=== PATIENT | male | born 1955 | race Caucasian/White ===

== ENCOUNTER 2018-01-13 10:03 | Outpatient (REF) | payer BC, SELFPAY ==
[2018-01-13 21:33] LABS: Glucose 106 mg/dL (70-100)
[2018-01-13 22:22] LABS: Hemoglobin A1C 5.8 % (4.5-6.2)
== END 2018-01-13 10:23 ==
LOC: NCHCN 10:03
PROVIDERS: PCP Family Medicine; Visit Provider Family Medicine
DX: R73.01 Impaired fasting glucose (principal)
CPT/HCPCS: 82947; 83036

== ENCOUNTER 2018-05-19 08:43 | Outpatient (REF) | payer BC, SELFPAY ==
[2018-05-19 20:56] LABS: ALT 42 U/L (12-78); AST 25 U/L (15-37); Alkaline Phosphatase 100 U/L (46-116); BUN 17 mg/dL (7-18); Bilirubin, Total 0.7 mg/dL (0.2-1.0); CREATININE 0.85 mg/dL (0.70-1.30); Calcium 9.3 mg/dL (8.5-10.1); Chloride 103 mmol/L (98-107); Glucose 102 mg/dL (70-100); Potassium 4.1 mmol/L (3.5-5.1); Sodium 143 mmol/L (136-145); Total Protein 7.6 g/dL (6.4-8.2)
[2018-05-19 21:00] LABS: Hemoglobin A1C 5.9 % (4.5-6.2)
== END 2018-05-19 09:03 ==
LOC: NCHCN 08:43
PROVIDERS: PCP Family Medicine; Visit Provider Family Medicine
DX: E88.81 Metabolic syndrome and other insulin resistance (principal); R25.2 Cramp and spasm; E66.3 Overweight
CPT/HCPCS: 80053; 83036

== ENCOUNTER 2019-05-22 09:06 | Outpatient (REF) | payer OTHER, SELFPAY ==
[2019-05-22 22:00] LABS: ALT 47 U/L (16-63); AST 30 U/L (15-37); Alkaline Phosphatase 98 U/L (46-116); Anion Gap 10.6 mmol/L (3-11); BUN 17 mg/dL (7-18); Bilirubin, Total 0.6 mg/dL (0.2-1.0); CO2 26.4 mmol/L (21.0-32.0); CREATININE 0.78 mg/dL (0.70-1.30); Calcium 8.9 mg/dL (8.5-10.1); Calculated LDL 137 mg/dL (<100); Chloride 105 mmol/L (98-107); Cholesterol 218 mg/dL (<200); Glucose 104 mg/dL (74-106); HDL Cholesterol 37 mg/dL (40-60); Sodium 142 mmol/L (136-145); Total Protein 7.3 g/dL (6.4-8.2); Triglyceride 221 mg/dL (<150)
[2019-05-22 22:21] LABS: Hemoglobin A1C 5.9 % (3.8-5.6)
== END 2019-05-22 09:26 ==
LOC: NCHCN 09:06
PROVIDERS: PCP Family Medicine; Visit Provider Family Medicine
DX: R73.03 Prediabetes (principal); I10 Essential (primary) hypertension; E78.5 Hyperlipidemia, unspecified; E88.81 Metabolic syndrome and other insulin resistance
CPT/HCPCS: 80053; 80061; 83036

== ENCOUNTER 2020-10-25 17:40 | Emergency (ER) | payer OTHER, SELFPAY ==
[2020-10-25 17:47] VITALS: BP 168/88; PULSE 61; RESP 19; TEMP 36.6; O2SAT 97
--- NOTE | 2020-10-25 18:00 | DI.RAD_ITS ---
Exam(s) XR TIB/FIB RT EXAM: XR TIB/FIB RT CLINICAL HISTORY: R tibia contusion/pain. TECHNIQUE: 2D digital imaging was performed. COMPARISON: CR CHEST 2 VIEWS PA,LAT from 01/21/2017 FINDINGS: BONES: No acute fracture is present. No bony destructive lesion is seen. Visualized portion of knee a nd ankle joints are unremarkable. SOFT TISSUE: Edema. IMPRESSION: Unremarkable radiographs of the right tibia and fibula. DATA REPOSITORY: RADIATION DOSE DELIVERED:
--- NOTE | 2020-10-25 18:11 | ED.GENADUL_ITS ---
Discharge Plan Disposition Patient Disposition: HOME Condition: Improving Discharge Details Clinical Impression: Contusion of right tibia Primary Care Provider: Li Benton ED Provider: Quinn Taylor Home Meds and New Rx's Prescriptions: Continued acetylcysteine (bulk) Powder 600 RF: 0 zinc 50 mg Capsule 50 mg PO DAILY RF: 0 cholecalciferol (vitamin D3) [Vitamin D3] 125 mcg (5,000 unit) Tablet 5,000 unit PO DAILY RF: 0 multivitamin [Daily Multi-Vitamin] 1 EACH tablet 1 ea PO DAILY RF: 0 atorvastatin [Lipitor] 80 MG tablet 80 mg PO DAILY RF: 0 amlodipine 10 MG tablet 10 mg PO DAILY RF: 0 ibuprofen 200 MG tablet 200 mg PO PRN PRNRF: 0 coenzyme Q10 [CoQ-10] 100 MG capsule 100 mg PO DAILY RF: 0 Discharge Instructions Instructions: Contusion in Adults (ED) Additional Instructions: May continue Tylenol and ibuprofen as needed for pain. Ruddy bandage for compression while awake and out of bed, remove at bedtime. Elevate above the level of the heart to reduce pain and swelling. Ice to reduce discomfort, apply 20 minutes at a time. Return to the emergency department for any acute concerns. The radiologist agreed your x-ray showed no acute bony fracture. Medical Decision Making 64-year-old male presents with right lower third tibia pain after striking it with a grass scythe that did not cut the skin but contused the leg and subsequent to which the patient developed pain and swelling. He presents with concern for bony injury. He was given Tylenol, ice, referred for x-ray. There is no evidence of bony injury. Patient given Ruddy bandage for compression and stability, which he does state provides some subjective improvement. He is improved. He understands he will likely have further bruising. He is stable for outpatient management. HPI General Mode of arrival: ambulatory . Date/Time Provider Initiated Documentation: 10/25/20 17:53 . Limitations to Documentation: no limitations . Information obtained by: patient . History of Present Illness 64 year old M presents to the emergency department with the chief complaint of Right tibia contusion and pain, described as moderate, Quality is described as dull and constant, and is localized to the right and lower extremity. Patient reports no radiation. Patient started experiencing this hour(s) and it has been constant. No relieving factors improve symptom(s), No exacerbating factors reported . Patient notes no other symptoms.. Patient did receive the following treatments prior to arrival, none Related Data Home Medications Medication Instructions Recorded Confirmed amlodipine 10 mg PO DAILY 01/21/17 10/25/20 atorvastatin [Lipitor] 80 mg PO DAILY 01/21/17 10/25/20 coenzyme Q10 [CoQ-10] 100 mg PO DAILY 01/21/17 10/25/20 ibuprofen 200 mg PO PRN PRN 01/21/17 10/25/20 multivitamin [Daily Multi-Vitamin] 1 ea PO DAILY 01/21/17 10/25/20 acetylcysteine (bulk) 600 10/25/20 cholecalciferol (vitamin D3) 5,000 unit PO DAILY 10/25/20 10/25/20 [Vitamin D3] zinc 50 mg PO DAILY 10/25/20 10/25/20 Allergies Allergy/AdvReac Type Severity Reaction Status Date / Time gluten Allergy Intermediate Swelling/Ed Unverified 01/21/17 15:01 yuliet General Stated Complaint: Orthopedic LORETTA: 4 Review of Systems Narrative: 4 systems reviewed and otherwise negative [facility] Social History Smoking/Tobacco Use Status: Former Tobacco Use Smoking risk assessment performed?: Yes Drug use: Never Substance use type: does not use Do you feel safe at home: Yes Do you feel safe in your relationship?: Yes Exam Narrative Exam Narrative: GEN: awake, alert, oriented 3. Pleasant, well groomed, interactive. HEAD: Normocephalic, atraumatic EYES: PERRL, EOMI EXT: Full ROM, right distal third anterior tibia with mild area of swelling and tenderness. No bony clicks or crepitus appreciated. Normal capillary refill Neuro: Grossly normal neurologic exam, conversant, interactive. Psych: Speech fluent, thoughts congruent, affect normal Course Vital Signs Vital signs: Vital Signs Temperature 36.6 C 10/25/20 17:47 Pulse 61 10/25/20 17:47 Respiratory Rate 19 10/25/20 17:47 Blood Pressure 168/88 H 10/25/20 17:47 Pulse Oximetry 97 10/25/20 17:47 Temperature 36.6 C 10/25/20 17:47 Temperature Source Temporal Artery Scan 10/25/20 17:47 Pulse 61 10/25/20 17:47 Respiratory Rate 19 10/25/20 17:47 Respiratory Effort 10/25/20 17:51 Blood Pressure 168/88 H 10/25/20 17:47 Blood Pressure Position Sitting 10/25/20 17:47 Pulse Oximetry 97 10/25/20 17:47 Oxygen Delivery Method Room Air 10/25/20 17:47 Oxygen Flow Rate 0 10/25/20 17:47 Pain Level 2 10/25/20 17:47
[2020-10-25] MEDS: Acetaminophen 500 MG TAB 1000 MG PO (18:20)
--- NOTE | 2020-10-25 18:47 | DI.VRAD_ITS ---
PROCEDURE INFORMATION: Exam: XR Right Tibia and Fibula Exam date and time: 10/25/2020 6:11 PM Age: 64 years old Clinical indication: Lower leg; Right; Patient HX: R tibia contusion/pain TECHNIQUE: Imaging protocol: XR Right tibia and fibula. Views: 2 views. Total images: 2 COMPARISON: No relevant prior studies available. FINDINGS: Bones/joints: No acute fracture or malalignment. Soft tissues: Normal. IMPRESSION: No acute fracture or malalignment. Dictated and Authenticated by: Tj Holcomb MD. Ordering:YUSEF Ball MD
== END 2020-10-25 18:55 | disposition home or self-care (01) ==
LOC: ER 18:54
PROVIDERS: Emergency Provider Emergency Medicine; PCP Family Medicine
DX: S80.11XA Contusion of right lower leg, initial encounter (principal); W27.8XXA Contact with other nonpowered hand tool, initial encounter
CPT/HCPCS: 99283; 73590

== ENCOUNTER 2020-11-01 18:53 | Emergency (ER) | payer OTHER, SELFPAY ==
[2020-11-01 18:56] VITALS: BP 130/73; PULSE 74; RESP 12; TEMP 36.5; O2SAT 98
[2020-11-01] MEDS: Normal Saline 1,000 ML 1000 ML IV (19:00)
[2020-11-01] MEDS: methylPREDNISolone SUCC 125 MG VIAL IVP (19:07)
[2020-11-01 19:30] VITALS: BP 130/70; PULSE 69; RESP 16; O2SAT 96
[2020-11-01 20:00] VITALS: BP 123/63; PULSE 67; RESP 14; O2SAT 93
--- NOTE | 2020-11-01 20:10 | ED.GENADUL_ITS ---
Discharge Plan Disposition Patient Disposition: HOME Discharge Details Clinical Impression: Bee sting-induced anaphylaxis Primary Care Provider: Li Benton ED Provider: Milind Cortez Home Meds and New Rx's Prescriptions: New epinephrine [EpiPen 2-Juan] 0.3 mg/0.3 mL auto-injector 0.3 mg IM ONCE PRN (Reason: anaphylaxis) Qty: 1 RF: 0 prednisone 20 mg tablet 40 mg PO DAILY Qty: 8 RF: 0 Continued acetylcysteine (bulk) Powder 600 RF: 0 zinc 50 mg Capsule 50 mg PO DAILY RF: 0 cholecalciferol (vitamin D3) [Vitamin D3] 125 mcg (5,000 unit) Tablet 5,000 unit PO DAILY RF: 0 multivitamin [Daily Multi-Vitamin] 1 EACH tablet 1 ea PO DAILY RF: 0 atorvastatin [Lipitor] 80 MG tablet 80 mg PO DAILY RF: 0 amlodipine 10 MG tablet 10 mg PO DAILY RF: 0 ibuprofen 200 MG tablet 200 mg PO PRN PRNRF: 0 coenzyme Q10 [CoQ-10] 100 MG capsule 100 mg PO DAILY RF: 0 Discharge Instructions Instructions: Insect Bite or Sting (ED), Anaphylaxis (ED) Additional Instructions: Please take Benadryl 25 mg every 8 hours for the next few days. Take prednisone as prescribed. Your next dose is tomorrow. You are prescribed an EpiPen to be used for severe anaphylaxis in the future. You are highly allergic to bees and wasps and should avoid exposure as much as possible. Return to the emergency department immediately for any worsening or new concerning symptoms. Referrals: Li Benton [Primary Care Provider] - Discharge Data Discharge Date/Time-TO BE ENTERED AT DEPARTURE: 11/01/20 21:35 Medical Decision Making <Karlo Gamboa MD - Last Filed: 11/07/20 23:30> 64-year-old male here with anaphylactic reaction to wasp. Patient received epinephrine and Benadryl in the field. His symptoms are improving. He is hemodynamically stable. Airway intact. I will give Solu-Medrol. Plan to monitor for a couple hours and ensure no recurrence. <Milind Cortez MD - Last Filed: 11/01/20 21:16> Patient signed out to me pending reassessment after 4-hour wait beyond dose of epinephrine. Patient received his epinephrine at home somewhere between 4:30 and 5 PM. He has required no further epinephrine. He has been observed and had no return of allergic/anaphylactic symptoms. He is hemodynamically stable and will be discharged home at this time with prescriptions for EpiPen and prednisone sent to his pharmacy. HPI <Karlo Gamboa MD - Last Filed: 11/07/20 23:30> General Mode of arrival: ambulatory . Date/Time Provider Initiated Documentation: 11/01/20 18:58 . Limitations to Documentation: no limitations . Information obtained by: patient . HPI Narrative: 64-year-old male presents with wasp sting. Patient notes he was stung by multiple wasps just prior to arrival. Patient notes he had swollen lips and hives and called EMS. Symptoms were severe. Progressive. EMS arrived and treated him with epinephrine and Benadryl. Symptoms have since dramatically improved. He notes swelling is almost gone. No difficulty breathing. Related Data Home Medications Medication Instructions Recorded Confirmed amlodipine 10 mg PO DAILY 01/21/17 11/01/20 atorvastatin [Lipitor] 80 mg PO DAILY 01/21/17 10/25/20 coenzyme Q10 [CoQ-10] 100 mg PO DAILY 01/21/17 11/01/20 ibuprofen 200 mg PO PRN PRN 01/21/17 11/01/20 multivitamin [Daily Multi-Vitamin] 1 ea PO DAILY 01/21/17 11/01/20 acetylcysteine (bulk) 600 10/25/20 cholecalciferol (vitamin D3) 5,000 unit PO DAILY 10/25/20 11/01/20 [Vitamin D3] zinc 50 mg PO DAILY 10/25/20 11/01/20 epinephrine [EpiPen 2-Juan] 0.3 mg IM ONCE PRN #1 ea 11/01/20 prednisone 40 mg PO DAILY #8 tab 11/01/20 Previous Rx's Medication Instructions Recorded epinephrine [EpiPen 2-Juan] 0.3 mg IM ONCE PRN #1 ea 11/01/20 prednisone 40 mg PO DAILY #8 tab 11/01/20 Allergies Allergy/AdvReac Type Severity Reaction Status Date / Time gluten Allergy Intermediate Swelling/Ed Unverified 01/21/17 15:01 yuliet wasp Allergy Uncoded 11/01/20 19:02 General Stated Complaint: Allergic LORETTA: 2 Review of Systems <Karlo Gamboa MD - Last Filed: 11/07/20 23:30> All systems reviewed & are unremarkable except as noted in HPI and below Constitutional Constitutional: Denies fever(s) ENT Ears, Nose, Mouth, and Throat: Reports as per HPI PFSH <Karlo Gamboa MD - Last Filed: 11/07/20 23:30> Social History Smoking/Tobacco Use Status: Former Tobacco Use Smoking risk assessment performed?: Yes Drug use: Never Substance use type: does not use Do you feel safe at home: Yes Do you feel safe in your relationship?: Yes Exam <Karlo Gamboa MD - Last Filed: 11/07/20 23:30> Const General: cooperative and no acute distress HENMT Mouth: moist mucous membranes Eyes Conjunctivae: normal conjunctivae Sclera: normal sclerae EOM: EOM intact bilaterally Neck Neck: trachea midline and supple Resp Auscultation: clear to auscultation bilaterally, no rales, no rhonchi and no wheezes Cardio Rate: regular rate and not tachycardic Rhythm: regular rhythm GI Palpation: soft, not firm, no guarding, no masses, not rigid and nontender Skin Rashes: rashes noted (Mild diffuse erythema arms and chest) Neuro General: patient alert, patient awake, patient oriented x3 and tone normal Extrem General: no edema Psych Appearance: grossly normal Mental Status: mental status grossly normal Speech and Movement: speech and movement normal Course <Karlo Gamboa MD - Last Filed: 11/07/20 23:30> Vital Signs Vital signs: Vital Signs Temperature 36.5 C 11/01/20 18:56 Pulse 74 11/01/20 18:56 Respiratory Rate 12 11/01/20 18:56 Blood Pressure 130/73 11/01/20 18:56 Pulse Oximetry 98 11/01/20 18:56 Temperature 36.5 C 11/01/20 18:56 Temperature Source Skin 11/01/20 18:56 Pulse 74 11/01/20 18:56 Respiratory Rate 12 11/01/20 18:56 Respiratory Effort Non-Labored 11/01/20 19:07 Respiratory Pattern Normal 11/01/20 19:07 Blood Pressure 130/73 11/01/20 18:56 Blood Pressure Position Supine 11/01/20 18:56 Pulse Oximetry 98 11/01/20 18:56 Oxygen Delivery Method Room Air 11/01/20 18:56 Oxygen Flow Rate 0 11/01/20 18:56 Pain Level 0 11/01/20 18:56 Sign Out <Karlo aGmboa MD - Last Filed: 11/07/20 23:30> Sign Out Data: Sign Out Comment: Reassessed patient post epinephrine for anaphylaxis. Last updated by Karlo Gamboa MD at 11/01/20 20:55
[2020-11-01 20:30] VITALS: BP 118/63; PULSE 67; RESP 14; O2SAT 93
[2020-11-01 21:31] VITALS: BP 134/67; PULSE 68; RESP 16; O2SAT 96
== END 2020-11-01 21:35 | disposition home or self-care (01) ==
PROVIDERS: Emergency Provider Emergency Medicine; PCP Family Medicine
DX: T63.461A Toxic effect of venom of wasps, accidental (unintentional), initial encounter (principal); T78.2XXA Anaphylactic shock, unspecified, initial encounter
CPT/HCPCS: 96361; 96374; 99284; J2930

== ENCOUNTER 2021-03-13 09:20 | Outpatient (REF) | payer MEDICARE, SELFPAY ==
[2021-03-13 15:58] LABS: ALT 71 U/L (16-63); AST 34 U/L (15-37); Alkaline Phosphatase 97 U/L (46-116); Anion Gap 10.6 mmol/L (3-11); BUN 15 mg/dL (7-18); Bilirubin, Total 0.6 mg/dL (0.2-1.0); CO2 26.4 mmol/L (21.0-32.0); CREATININE 0.8 mg/dL (0.70-1.30); Calcium 9.2 mg/dL (8.5-10.1); Calculated LDL 126 mg/dL (<100); Chloride 106 mmol/L (98-107); Cholesterol 204 mg/dL (<200); Glucose 101 mg/dL (74-106); HDL Cholesterol 42 mg/dL (40-60); Hemoglobin A1C 5.8 % (<5.7); Potassium 4.2 mmol/L (3.5-5.1); Sodium 143 mmol/L (136-145); Total Protein 7.4 g/dL (6.4-8.2); Triglyceride 181 mg/dL (<150)
== END 2021-03-13 09:21 | disposition home or self-care (01) ==
LOC: NCHCN 09:20
PROVIDERS: PCP Family Medicine; Visit Provider Family Medicine
DX: E78.5 Hyperlipidemia, unspecified (principal); I10 Essential (primary) hypertension; R73.03 Prediabetes
CPT/HCPCS: 80053; 80061; 83036

== ENCOUNTER 2022-03-23 11:07 | Outpatient (REF) | payer MEDICARE, SELFPAY ==
--- OUTSIDE RECORDS SUMMARY | 2022-03-23 11:08 | XMS_ITS | Encounter Summary ---
:1955 Author Organization [facility] Address [address] [place] [address] Care Team Providers Name Role Phone Unknown, Provider Unavailable Lamine Benton MD Primary Care Provider [phone] Encounter Details Date Type Department Care Team Description 07/13/2021 Plan of Care Documentation [facility] [address] [place] [address] Social History Tobacco Use Types Packs/Day Years Used Date Smoking Tobacco: Former Cigarettes Quit : 03/16/1980 Smokeless Tobacco: Never Sex Assigned at Date Recorded Male 04/27/2021 18:11 EST documented as of this encounter Functional Status Functional Status Response Date of Assessment Are you deaf or do you have serious difficulty hearing? No 03/16/2021 Because of a physical, mental, or emotional condition, No 08/22/2018 does this person have difficulty doing errands alone such as visiting a doctor's office or shopping? Cognitive Status Response Date of Assessment Because of a physical, mental, or emotional condition, No 08/22/2018 does this person have serious difficulty concentrating, remembering, or making decisions? documented as of this encounter Progress Notes Real Aviles, PT - 07/13/2021 1526 EDT ASSESSMENT Therapy Diagnosis: 65yo male with difficulty walking s/p 03/16/21 tib/fib fracture reduced with IMN. Problem List: Decreased ROM, Decreased strength, Difficulty with prolonged standing, Edema, Impairedambulation, Impaired stair/curb negotiation and Pain Assessment: Patient is a pleasant, 65yo male who presents with deficits in functional mobility s/p 03/16/21 tib/fib fracture reduced with IMN. Patient is doing well but condition is compromised by ongoing RLE edema. Patient to benefit from regular use of compression sock along with elevating RLE as much as possible to help manage RLE edema. Patient is appropriate for PT and will benefit from skilled intervention for progression towards functional goals. Equipment Needed: Compression sock 20-25mmHG Barriers to Learning: None Potential Barriers to Progress: None Response to Evaluation: Well Rehabilitation Potential: Motivation/Commitment to Therapy: Good Rehabilitation Potential: Good Short-Term Goals Timeframe: (4 weeks) Goals: 1) RLE edema managed through use of regular compression 2) Patient able to walk up/down 12 steps with reciprocal gait and no HR 3) Patient able to get 1600' or more on 6min walk test Long-Term Goals Timeframe: (12 weeks) Goals: 1) Patient able to walk up and down 12 steps with reciprocal gait and no HR carrying 10# load for purpose of doing laundry 2) Patient able to achieve greater than 1800' indicating that his walking speed is adequate for community ambulation PLAN Medical Necessity: Therapy intervention is indicated in order to return to a premorbid level of function or significantly improve current level of function. Physical Therapy is recommended for: Treatment Frequency/ Duration: 10 visits over 12 weeks Therapy Treatment to include: 73509 - Hot Cold Pack, 75687 - Therapeutic Exercise, 54068 - Neuromuscular Re-education, 91360 - Gait Training, 81742 - Manual Therapy and 33866 - Therapeutic Activity Recommended Consults: None Development of Plan of Care: Patient and family participated in development of plan of care today. ATTENDING PHYSICIAN: Medicare certification needed. Your signature indicates you approve the therapygoals and plan of care outlined on this document dated 07/13/2021. Thank you! Attending Physician Signature Date REAL AVILES PT 07/13/2021 15:25 documented in this encounter Plan of Treatment Not on filedocumented as of this encounter Visit Diagnoses Not on filedocumented in this encounter Care Teams Tip Bander Relationship Specialty Start Date End Date Lamine Benton MD PCP - General 07/17/18 4 [facility] [address] [place] [address] Unknown, Provider, 04/11/15 documented as of this encounter
--- OUTSIDE RECORDS SUMMARY | 2022-03-23 11:08 | XMS_ITS | Encounter Summary ---
:1955 Author Organization [facility] Address [address] [place] [address] Care Team Providers Name Role Phone Unknown, Provider MD Unavailable Lamine Benton MD Primary Care Provider [phone] Reason for Visit Reason Comments Follow-up Encounter Details Date Type Department Care Team Description 03/17/2022 Office Visit [facility] - Donna Cooper (Primary [facility] D[facility]) Sport Medicine [address], [facility] [address] [place] [address] [place], [place] [address] (Wo rk) Social History Tobacco Use Types Packs/Day Years Used Date Smoking Tobacco: Former Cigarettes Quit : 03/16/1980 Smokeless Tobacco: Never Sex Assigned at Date Recorded Male 04/27/2021 18:11 EST COVID-19 Exposure Response Date Recorded In the last 10 days, have you been in contact with No / Unsu re 03/17/2022 13:05 EST someone who was confirmed or suspected to have Coronavirus/COVID-19? documented as of this encounter Functional Status [...] documented as of this encounter Progress Notes Donna Cooper PA-C - 03/17/2022 1300 EST Quinn presents today for a follow up of his right lower leg. He is S/P intramedullary nail of tib/fib fracture done on 03/17/21. LV was on 10/15/21 with SG where he was recovering well and mobility was improving. He was told he could keep increasing his activity as tolerated. Here today for one year reevaluation and repeat x-rays. XR pended. Orthopaedic Surgery Office Note Quinn Daniel 1955 [id number] Chief Complaint: Chief Complaint Patient presents with ??? Right Lower Leg - Follow-up History of Present Illness: Quinn Daniel is a very pleasant 66 y.o. male who presents today for follow- up of his right tib/fib fracture. He is s/p IMN for this on 03/17/21. Wearing compression socks. Feeling mostly recovered.Still has trouble kneeling. Review of Systems: As above. Active Ambulatory Problems Diagnosis Date Noted ??? Benign prostatic hyperplasia 01/14/2015 ??? Hyperlipidemia 01/14/2015 ??? Hypertension 01/14/2015 ??? Leg cramps 09/30/2017 ??? Metabolic syndrome 09/30/2017 ??? Obesity 09/30/2017 ??? Osteoarthrosis 03/26/2015 ??? Prediabetes 01/14/2015 ??? Seborrhea 01/14/2015 ??? Anaphylactic reaction to bee sting 03/16/2021 ??? Venous insufficiency 01/14/2015 ??? Toxic effect of venom of wasps, accidental (unintentional), initial encounter 11/01/2020 ??? Tibia/fibula fracture 03/16/2021 ??? senior care (current) use of aspirin 04/03/2021 ??? Unspecified fall, subsequent encounter 03/16/2021 ??? Displaced oblique fracture of shaft of right fibula, subsequent encounter for closed fracture with routine healing 04/03/2021 Resolved Ambulatory Problems Diagnosis Date Noted ??? Tibia/fibula fracture, right, closed, initial encounter 03/17/2021 No Additional Past Medical History Social History Occupational History ??? Not on file Tobacco Use ??? Smoking status: Former Types: Cigarettes Quit date: 03/16/1980 Years since quittin.0 ??? Smokeless tobacco: Never Substance and Sexual Activity ??? Alcohol use: Not on file ??? Drug use: Not on file ??? Sexual activity: Not on file Physical Examination: No data found. Gen- no acute distress, awake alert and appropriate Right Lower Extremity- Continues with 1-2+ edema in the leg. Minimal sensitivity over anterior knee incision. Good clinical alignment Light touch sensation intact to SP/DP/T distribution. Foot warm and well perfused. Resolving swelling and ecchymosis. Compartments soft. Fires toe flex/ext with good strength. Range of motion to DF neutral PF 30 Good inversion and eversion strength. Knee range of motion between 0, 100 degrees today comfortably.No tenderness to palpation. Imaging Studies: Xrays of the right tib/fib alignment and hardware position. There is no evidence ofhardware failure or other complication. Good interval consolidation. Assessment and Plan: Quinn Daniel is a very pleasant 66 y.o. male who presents today for follow- up of his right tib/fib fracture. Doing well, follow-up as needed. Donna Cooper PA-C Orthopaedics and [facility] [address] [place], [place] documented in this encounter Plan of Treatment Not on filedocumented as of this encounter Results XR TIBIA FIBULA RIGHT 2 VIEWS (03/17/2022 13:15 EST) Anatomical Region Laterality Modality Lower Extremities Computed Radiography Specimen (Source) Anatomical Collection Method Collection Time Re ceived Time Location / / Volume Laterality 03/17/2022 14:28 EST Narrative 03/17/2022 14:28 EST INDICATION: Right tib/fib fracture. COMPARISON: Right lower leg 10/15/2021. TECHNIQUE: 2 views of the right lower le g were obtained. FINDINGS: Healed fractures of the fibula and tibia are unchanged in position and alignment when compared to the prior examination. Intramedullary garima within the tibia is unchanged. The knee and ankle joints are intact. Procedure Note Leonard Jimenez MD - 2 INDICATION: Right tib/fib fracture. COMPARISON: Right lower leg 10/15/2021. TECHNIQUE: 2 views of the right lower le g were obtained. FINDINGS: Healed fractures of the fibula and tibia are unchanged in position and alignment when compared to the prior examination. Intramedullary garima within the tibia is unchanged. The knee and ankle joints are intact. Donna Cooper PA-C IMG DIAGNOSTIC IMAGING ORD ERABLES documented in this encounter Visit Diagnoses Diagnosis Fracture - Primary Closed fracture of unspecified bone documented in this encounter Care Teams Email Marketing Specialist Relationship Specialty Start Date End Date Lamine Benton MD PCP - General 07/17/[address] [address] Unknown, ProviderMD 04/11/15 documented as of this encounter
--- OUTSIDE RECORDS SUMMARY | 2022-03-23 11:08 | XMS_ITS | Encounter Summary ---
:1955 Author Organization [facility] Address [address] [place] [address] Care Team Providers Name Role Phone Unknown, Provider Unavailable Lamine Benton MD Primary Care Provider Reason for Referral PT/OT/ST (See Order Priority) - Authorization Not Required Specialty Diagnoses / Procedures Referred By Contact Refer red To Contact Rehab Therapies Diagnoses Right leg pain Steffi Hendrix Rehab Therapy MD [place] [address] [place] [address] [address] [place], [place] [address] [place] [address] Phone: [phone] Referral ID Status Reason Start Expiration Visits Visits Date Date Requested Authorized [id number] Authorization Specialty 1 1 Not Required Services 2 Required Question Answer Reason for Request: S/P right tibial intramedull dalton nail 03/17/21 Reason for Visit Reason Onset Date Comments Other 06/02/2021 PATIENT REQUESTING P T REFERRAL TO BE SENT TO [facility] DID NOT OFFER ANY PAYMEN T FOR THE REHAB GYM REFERRAL Encounter Details Date Type Department Care Team Description 06/02/2021 Telephone [facility] - Steffi Hendrix ( PATIENT [facility] Orthopedics & MD [place] REQUESTING PT REFERRAL Sport Medicine [address] TO BE SENT TO [address] [place] [address] [address] [facility], [address] [facility] DID NOT [address] [place] [address], [place] [address] [place] [phone] THE REHAB GYM REFERRAL) [phone] Social History Tobacco Use Types Packs/Day Years [...] making decisions? documented as of this encounter Miscellaneous Notes Telephone Encounter - Adina Matthew LPN - 06/04/2021 0944 EST Order placed as requested Telephone Encounter - Virgen Brown - 06/02/2021 1156 EST Patient insurance will not pay for the Rehab Gym referral that SG sent in. Patient would like us to send a PT referral to [facility]. They seemed to have paid the last time. Thanks documented in this encounter Plan of Treatment Scheduled Referrals Name Type Priority Associated Order Schedule Diagnoses AMB CONS/FOLLOW Outpatient Routine/Next Right leg pain Expected: UP PHYSICAL Referral Available 06/11/2021 THERAPY - [facility] (Approximate) , Expires: 06/04/2022 documented as of this encounter Visit Diagnoses Diagnosis Right leg pain - Primary Pain in limb documented in this encounter Care Teams Clothes Presser Relationship Specialty Start Date End Date Lamine Benton MD PCP - General 07/17/18 4 [facility] [address] [place] [address] Unknown, ProviderMD 04/11/15 documented as of this encounter
--- OUTSIDE RECORDS SUMMARY | 2022-03-23 11:08 | XMS_ITS | Encounter Summary ---
:1955 Author Organization Health system Address [address] [place] [address] Care Team Providers Name Role Phone Unknown, Provider Unavailable Lamine Benton MD Primary Care Provider [phone] Encounter Details Date Type Department Care Team Description 04/28/2021 Travel Social History Tobacco Use Types Packs/Day Years Used Date Smoking Tobacco: Former Cigarettes Quit : 03/16/1980 Smokeless Tobacco: Never Sex Assigned at Date Recorded Male 04/27/2021 18:11 EST COVID-19 Exposure Response Date Recorded In the last month, have you been in contact with No / Unsure 04/28/2021 15:31 EST someone who was confirmed or suspected to have Coronavirus / COVID-19? documented as of this encounter Functional Status [...] making decisions? documented as of this encounter Plan of Treatment Not on filedocumented as of this encounter Visit Diagnoses Not on filedocumented in this encounter Care Teams Six Sigma Black Trainer Relationship Specialty Start Date End Date Lamine Benton MD PCP - General 07/17/18 4 [facility] [address] [place], [place] [address] Unknown, ProviderMD 04/11/15 documented as of this encounter
--- OUTSIDE RECORDS SUMMARY | 2022-03-23 11:08 | XMS_ITS | Encounter Summary ---
:1955 Author Organization [facility] Address [address] [place] [address] Care Team Providers Name Role Phone Unknown, Provider Unavailable Lamine Benton MD Primary Care Provider [phone] Encounter Details Date Type Department Care Team Description 10/15/2021 Travel Social History Tobacco Use Types Packs/Day Years Used Date Smoking Tobacco: Former Cigarettes Quit : 03/16/1980 Smokeless Tobacco: Never Sex Assigned at Date Recorded Male 04/27/2021 18:11 EST COVID-19 Exposure Response Date Recorded In the last 10 days, have you been in contact with No / Unsu re 10/15/2021 15:27 EDT someone who was confirmed or suspected to [...] on filedocumented in this encounter Care Teams Carbon Coating Machine Operator Relationship Specialty Start Date End Date Lamine Benton MD PCP - General 07/17/18 4 [facility] [address] [place], [place] [address] Unknown, ProviderMD 04/11/15 documented as of this encounter
--- OUTSIDE RECORDS SUMMARY | 2022-03-23 11:08 | XMS_ITS | Encounter Summary ---
:1955 Author Organization [facility] Address [address] [place] [address] Care Team Providers Name Role Phone Unknown, Provider Unavailable Lamine Benton MD Primary Care Provider Reason for Visit Reason Comments Pain Follow-up Fracture Encounter Details Date Type Department Care Team Description 06/09/2021 Office Visit [facility] - Steffi Hendrix History of fracture [facility] Orthopedics & MD [place] (Primary Dx) Sport Medicine [address] [place] [address] [address] [place] [address] [place] [phone] Social History Tobacco Use Types Packs/Day Years Used Date Smoking Tobacco: Former Cigarettes Quit : 03/16/1980 Smokeless Tobacco: Never Sex Assigned at Date Recorded Male 04/27/2021 18:11 EST COVID-19 Exposure Response Date Recorded In the last month, have you been in contact with No / Unsure 06/09/2021 15:10 EST someone who was confirmed or suspected to have Coronavirus / COVID-19? documented as of this encounter Last Filed Vital Signs Vital Sign Reading Time Taken Comments Blood Pressure - - Pulse - - Temperature 36.1 ??C (97 ??F) 06/09/2021 1513 EST Respiratory Rate - - Oxygen Saturation - - Inhaled Oxygen Concentration - - Weight - - Height - - Body Mass Index - - documented in this encounter Functional Status Functional Status Response [...] documented as of this encounter Progress Notes Johana Martinez RN - 06/09/2021 1515 EST Quinn presents today for follow up of right tibia fracture s/p IMN. DOS 03/16/21. LV 04/28/21 per note, patient Doing well to date with this injury. We will see back in follow-up in 6weeks. Xrays ordered Graves, Steffi Anton MD - 06/09/2021 1515 EST Orthopaedic Surgery Office Note Quinn Daniel 1955 [id number] Chief Complaint: Chief Complaint Patient presents with ??? Right Lower Leg - Pain, Follow-up, Fracture History of Present Illness: Quinn Daniel is a very pleasant 65 y.o. male who presents today for follow- up of his right tib/fib fracture. He is s/p IMN for this on 03/17/21. He is doing well with improving mobility. Pain controlled. Working with PT. Still some generalized swelling in both legs that is worse than his baseline.We did rule out a DVT previously. Review of Systems: As above. Active Ambulatory [...] initial encounter 11/01/2020 ??? Tibia/fibula fracture 03/16/2021 Resolved Ambulatory Problems Diagnosis Date Noted ??? Tibia/fibula fracture, right, closed, initial encounter 03/17/2021 No Additional Past Medical History Social History Occupational History ??? Not on file Tobacco Use ??? Smoking status: Former Smoker Quit date: 03/16/1980 Years since quittin.2 ??? Smokeless tobacco: Never Used Substance and Sexual Activity ??? Alcohol use: Not on file ??? Drug use: Not on file ??? Sexual activity: Not on file Physical Examination: Patient Vitals for the past 24 hrs: Temp 06/09/21 1513 36.1 ??C (97 ??F) Gen- no acute distress, awake alert and appropriate Right Lower Extremity- Skin- incisions healing well and skin clean dry and intact Good clinical alignment Light touch sensation intact to SP/DP/T distribution. Foot warm and well perfused. Resolving swelling and ecchymosis. Compartments soft. Fires toe flex/ext with good strength. Range of motion to DF neutral PF 30 Good early inversion and eversion strength. Imaging Studies: Xrays of the right tib/fib alignment and hardware position. There is no evidence ofhardware failure or other complication.Perhaps some slight interval consolidation. Assessment and Plan: Quinn Daniel is a very pleasant 65 y.o. male who presents today for follow- up of his right tib/fib fracture. Good progress and interval consolidation. He will continue wearing compression and working on lymphedema management. Steffi Hendrix MD Orthopaedics and Sports Medicine [facility] [address] [place], [place] documented in this encounter Plan of Treatment Not on filedocumented as of this encounter Results XR TIBIA FIBULA RIGHT 2 VIEWS (06/09/2021 15:33 EST) Anatomical Region Laterality Modality Lower Extremities Computed Radiography Specimen (Source) Anatomical Collection Method Collection Time Re ceived Time Location / / Volume Laterality 06/09/2021 15:57 EST Impressions 06/09/2021 15:57 EST Healing tibial and fibular fractures, as detailed above. Tibial hardware intact. Alignment unchanged. Narrative 06/09/2021 15:57 EST XR TIBIA FIBULA RIGHT 2 VIEWS ?? Signs and Symptoms/Comments: ??right tib ia fracture s/p IMN Comparison: 04/28/2021, 03/16/2021. FINDINGS: Right tibia and fibula: AP and lateral v iews were performed. Bones: * ??Healing distal tibial shaft fracture . Hardware intact. Alignment near-anatomic. * ??Healing comminuted proximal fibular shaft fracture. Alignment unchanged. * ??Healing minimally displaced distal f ibular metadiaphyseal fracture. Alignment unchanged. Degenerative changes: Mild-moderate knee and ankle degenerative changes. Soft tissues: Soft tissue swelling. Procedure Note Rohan Cruz MD - 06/09/2021Fo rmatting of this note might be different from the original. XR TIBIA FIBULA RIGHT 2 VIEWS Signs and Symptoms/Comments: right tibia fracture s/p IMN Comparison: 04/28/2021, 03/16/2021. FINDINGS: Right tibia and fibula: AP and lateral v iews were performed. Bones: * Healing distal tibial shaft fracture. Hardware intact. Alignment near-anatomic. * Healing comminuted proximal fibular sh aft fracture. Alignment unchanged. * Healing minimally displaced distal fib ular metadiaphyseal fracture. Alignment unchanged. Degenerative changes: Mild-moderate knee and ankle degenerative changes. Soft tissues: Soft tissue swelling. IMPRESSION Healing tibial and fibular fractures, as detailed above. Tibial hardware intact. Alignment unchanged. Steffi Hendrix MD IMG DIAGNOSTIC IMAGING ORDER GUERA documented in this encounter Visit Diagnoses Diagnosis History of fracture - Primary Personal history of traumatic fracture documented in this encounter Care Teams Student Services Director Relationship Specialty Start Date End Date Lamine Benton MD PCP - General 07/17/[address] [address] Unknown, MD Padmini 04/11/15 documented as of this encounter
--- OUTSIDE RECORDS SUMMARY | 2022-03-23 11:08 | XMS_ITS | Encounter Summary ---
:[address] [facility] Address [address] [place] [address] Care Team Providers Name Role Phone Unknown, Provider MD Unavailable Lamine Benton MD Primary Care Provider [phone] Reason for Visit Reason Onset Date Comments Update 05/05/2021 Encounter Details Date Type Department Care Team Description 05/05/2021 Telephone [facility] Pastora Daniel, RN Update Orthopedics & Sport [address] [facility] Medicine [address], [place] [address] [facility] [place] [address] [phone] Social History Tobacco Use Types Packs/Day Years [...] this encounter Miscellaneous Notes Telephone Encounter - Pastora Daniel RN - 05/06/2021 0938 EST Called Erum and relayed Dr. Hendrix instructions. She will do the best that she can - will try tocoordinate zoom visits, but is not sure how much progress she will make with him. Telephone Encounter - Pastora Daniel RN - 05/05/2021 1205 EST Erum called and left a message requesting a call back regarding Mr. Daniel. He continues to refuse in person visits. Erum would like to know if there are any precautions for Mr. Daniel and if he should be wearing the boot all of the time vs weaning out of it. documented in this encounter Plan of Treatment Not on filedocumented as of this encounter Visit Diagnoses Not on filedocumented in this encounter Care Teams Goldsmith Apprentice Relationship Specialty Start Date End Date Lamine Benton MD PCP - General 07/17/18 4 [facility] [address] [place] [address] Unknown, MD Padmini 04/11/15 documented as of this encounter
--- OUTSIDE RECORDS SUMMARY | 2022-03-23 11:08 | XMS_ITS | Encounter Summary ---
:1955 Author Organization [facility] Address [address] [place] [address] Care Team Providers Name Role Phone Unknown, Provider Unavailable Lamine Benton MD Primary Care Provider [phone] Reason for Visit Auth/Cert Specialty Diagnoses / Procedures Referred By Contact Refer red To Contact Diagnoses Tibia/fibula fracture Tibia/fibula fracture, right, closed, initial encounter Referral ID Status Reason Start Date Expiration Date Visits Requ ested Visits Authorized [id number] 1 1 Encounter Details Date Type Department Care Team Description 03/16/2021 Anesthesia Event [facility] Claudette Fisher, Operating Room [address] [place] [address] [place], [place] [phone] (Wo rk) Anesthesia Record Procedure Summary Procedure Name Responsible Anesthesia Start Anesthesia Stop Anesthesiologist Time Time TREATMENT, FRACTURE, Pauline Fisher MD 03/16/212155 003 TIBIA, SHAFT, BY INTRAMEDULLARY IMPLANT (Right: Lower Leg) Events Date Time Event Comment 03/16/20212155 An Start The patient was re-evaluated immediately before moderate or deep sedation use, before anesthesia induction, or be fore the anesthesia procedure. 2155 An Start Data 2208 an lexi now Spinal placed 2218 Anesthesia Ready 03/17/2021 0023 an stop data 0031 An Stop 0032 Handoff to RN I completed my h andoff to the receiving nurse during which we: 1. Hiwot ntified the patient 2. Identified the responsible provider 3. Reviewed the pertinent medical history 4. Discussed the surgical course 5. Reviewed intra-o p anesthesia management and issues during anesthesi a 6. Set expectations for post-procedure p eriod 7. Allowed opportunity for questions and ac knowledgement of understanding. Name Total fentanyl citrate (PF) injection 50 mcg midazolam (VERSED) injection 1 mg/mL 4 mg propOFol (DIPRIVAN) injection 369,260 mcg ceFAZolin in dextrose 5 % (ANCEF) IVPB DUPLEX 2,000 mg 2,000 mg bupivacaine (PF) 0.5 % injection 3 mL dexmedetomidine injection 12 mcg ePHEDrine vial 50 mg/mL 10 mg lactated ringers (LR) infusion 1,900 mL Agents Name O2 N2O Air Aux O2 flow Blood No blood administrations on file. Lines, Drains, and Airways Type Details Placement Removal Peripheral IV 03/16/21; 1450; 20; Distal, 03/16/21 1450 by Damaso abel, Right; Upper Arm, Antecubital LOUIS Heard Wound 03/16/21; 2355; Anterior, Right; 03/16/21 2355 b y [place], Leg; surgical incision x7 for Sera Lauren NP open reduction and tibial rodding; N documented in this encounter Social History Tobacco Use Types Packs/Day Years Used Date Smoking Tobacco: Former Cigarettes Quit : 03/16/1980 Smokeless Tobacco: Never Sex Assigned at Date Recorded Male 04/27/2021 18:11 EST COVID-19 Exposure Response Date Recorded In the last month, have you been in contact with No / Unsure 03/16/2021 14:45 EST someone who was confirmed or suspected [...] making decisions? documented as of this encounter OR Notes Anesthesia Postprocedure Evaluation - Pauline Fisher MD - 03/17/2021 0031 EST Patient: Quinn Daniel Vital signs were reviewed with the recovery nurse. Complete vitals history is available in the Epic flowsheets. Vitals Value Taken Time BP 130/75 03/17/210 Temp 36.6 ??C (97.9 ??F) 03/17/21 0029 Resp 15 03/17/2130 Pulse From Oximetry 67 BPM 03/17/2130 SpO2 97 % 03/17/2130 Vitals shown include unvalidated device data. Last Pain Score - Numeric Pain Level (Scale 1-10): 8 Type of Anesthesia - neuraxial block Anesthesia Post Evaluation Post-procedure vitals reviewed and are stable. Level of consciousness: alert and oriented Temperature status: normothermia Respiratory status: airway patent and nasal cannula Cardiovascular status: acceptable Hydration status: adequate Nausea/Vomiting: none Pain management: adequate Patient participation: able to participate Disposition: inpatient Anesthesia Complications: Yes, See note Anesthesia Procedure Notes - Pauline Fisher MD - 03/16/2021 2218 ESTAssociated Order(s): Spinal Block Spinal Block Patient location during procedure: OR Start time: 03/16/2021 22:00 End time: 03/16/2021 22:09 Staffing Performed: anesthesiologist Anesthesiologist: Pauline Fisher MD Preanesthetic Checklist Completed: patient identified, IV checked, risks and benefits discussed, surgical consent, monitors and equipment checked, pre-op evaluation and timeout performed Spinal Block Patient position: left lateral decubitus Prep: ChloraPrep, site prepped and draped, skin prep agent completely dried prior to procedure, sterile gloves, mask used and subcutaneous lidocaine Patient monitoring: heart rate, continuous pulse ox and BP cuff Approach: midline Location: L4-5 Injection technique: single-shot Assessment Events: no paresthesia Reason for block: surgical anesthesia Anesthesia Preprocedure Evaluation - Pauline Fisher MD - 03/16/2021 2130 EST Anesthesia Preprocedure Evaluation Patient Medical History, including Anesthesia History reviewed. Chart and Nursing Notes reviewed, including NPO status and Medication History. Additional ROS/History Findings: No current facility-administered medications on file prior to encounter. Current Outpatient Medications on File Prior to Encounter Medication Sig Dispense Refill ??? amLODIPine (NORVASC) 10 mg tablet Take 10 mg by mouth daily. ??? aspirin 81 mg EC tablet Take 81 mg by mouth daily. ??? atorvastatin (LIPITOR) 80 mg tablet Take 80 mg by mouth daily. ??? Coenzyme Q10 (CO Q-10) 100 mg capsule Take 100 mg by mouth daily. ??? multivit-min/folic/vit K/lycop (MEN'S MULTIVITAMIN ORAL) Take 1 Tablet by mouth daily. Current Facility-Administered Medications Medication Route Frequency ??? amLODIPine (NORVASC) tablet 10 mg oral DAILY ??? atorvastatin (LIPITOR) tablet 80 mg oral DAILY ??? morphine injection 4 mg intravenous Now Current Outpatient Medications Medication ??? amLODIPine (NORVASC) 10 mg tablet ??? aspirin 81 mg EC tablet ??? atorvastatin (LIPITOR) 80 mg tablet ??? Coenzyme Q10 (CO Q-10) 100 mg capsule ??? multivit-min/folic/vit K/lycop (MEN'S MULTIVITAMIN ORAL) No Known Allergies Past Medical History: Diagnosis Date ??? Hypertension Relevant Problems CARDIOVASCULAR (+) Hypertension (+) Venous insufficiency History reviewed. No pertinent surgical history. Past Anesthetics [] No history of complications from anesthesia [] No anesthesia records on file []No family history of allergic reactions to anesthesia Review of Systems Constitutional: Negative. Eyes: Negative. Respiratory: Negative. Cardiovascular: Hypertension, heart murmur , high cholesterol. Gastrointestinal: Over weight. Genitourinary: Negative. Musculoskeletal: Negative. Neurological: Negative. Endo/Heme/Allergies: Negative. SOCIAL HISTORY: Social History Tobacco Use Smoking Status Former Smoker ??? Quit date: 03/16/1980 ??? Years since quittin.0 Smokeless Tobacco Never Used Social History Substance and Sexual Activity Drug Use Not on file Social History Substance and Sexual Activity Alcohol Use None No results found for: GLUCOSEPOC Lab Results Component Value Date WBC 12.63 (H) 03/16/2021 HGB 14.7 03/16/2021 HCT 43.7 03/16/2021 MCV 87 03/16/2021 PLT 183 03/16/2021 Lab Results Component Value Date NA 138 03/16/2021 K 4.0 03/16/2021 CL 104 03/16/2021 CO2 28 03/16/2021 Lab Results Component Value Date BUN 16 03/16/2021 Lab Results Component Value Date CREATININE 0.82 03/16/2021 No results found for: INR, PROTIME No results found for: PTT UPT: [] Patient declines test No results found for: PREGUR COVID: [] None on file Lab Results Component Value Date COVIDUV Negative 03/16/2021 Blood Type: ABO Date/Time Value Ref Range Status 03/16/2021 16:15 B Final Rh Factor Date/Time Value Ref Range Status 03/16/2021 16:15 Positive Final Antibody Screen Date/Time Value Ref Range Status 03/16/2021 16:15 Negative Final Specimen Expires: Date/Time Value Ref Range Status 03/16/2021 16:15 03/19/2021 @ 23:59 Final EKG: [] N/A ECHO: [] N/A Cardiac Stress: [] N/A BP (!) 165/85 Resp 16 Ht 177.8 cm (70) Wt 99.8 kg (220 lb) SpO2 95% BMI 31.57 kg/m?? Pulse From Oximetry: [60 BPM-91 BPM] Physical Exam Airway Mallampati: III TM distance: >3 FB Neck ROM: full Cardiovascular Rhythm: regular Rate: normal Dental - normal exam Pulmonary - normal exam Abdominal Anesthesia Plan ASA 3 Anesthesia Type - neuraxial block - via spinal Anesthesia plan and risks discussed. Informed consent obtained from patient. Specific risks discussed were , headache, nerve damage, nausea and vomiting. Code status discussed? Yes The preoperative history and physical which was performed within 30 days of this procedure, has beenreviewed and the clinically appropriate elements of the physical examination have been repeated. There are no changes to the documented history and physical or, if so, such changes are documented in this note documented in this encounter Plan of Treatment Not on filedocumented as of this encounter Procedures Procedure Name Priority Date/Time Associated Comments Diagnosis ANESTHESIA SPINAL Routine 03/16/2021 22:18 Result s for this BLOCK EST procedure are i n the results section. documented in this encounter Results Spinal Block (03/16/2021 22:18 EST) Narrative Pauline Fisher MD - 03/16/2021 22:18 KARLA T Pauline Fisher MD ? 03/16/2021 22:19 Spinal Block Patient location during procedure: OR Start time: 03/16/2021 22:00 End time: 03/16/2021 22:09 Staffing Performed: anesthesiologist Anesthesiologist: Pauline Fisher MD Preanesthetic Checklist Completed: patient identified, IV checke d, risks and benefits discussed, surgical consent, monitors and equipment checked, pre-op evaluation and timeout performed Spinal Block Patient position: left lateral decubitus Prep: ChloraPrep, site prepped and drape d, skin prep agent completely dried prior to procedure, sterile gloves , mask used and subcutaneous lidocaine Patient monitoring: heart rate, continuo us pulse ox and BP cuff Approach: midline Location: L4-5 Injection technique: single-shot Assessment Events: no paresthesia Reason for block: surgical anesthesia Pauline Fisher MD ANESTHESIA ORDERABLES documented in this encounter Visit Diagnoses Not on filedocumented in this encounter Administered Medications Inactive Administered Medications - up to 3 most recent administrations Medication Order MAR Action Action Date Dose Rate Site bupivacaine (PF) (MARCAINE) 0.5% Given 03/16/2021 22:09 EST 3 mL injection other, PRN, Starting on Tue03/16/21 at 2209, Until Tue03/17/21 at 0031, Routine, Anesthesia Intraprocedure ceFAZolin in dextrose 5 % (ANCEF) IVPB DUPLEX Given 22:19 EST 2,000 mg 2,000 mg 2,000 mg, intravenous, Administer over 30 Minutes, PRE-OP ONCE, 1 dose, On Tue03/16/21 at 2200, Type of Therapy: Prophylaxis, Suspected Indication (Select all that apply): Surgical prophylaxis, Routine, Preprocedure dexmedeTOMIDine (PRECEDEX) injection Given 03/16/2021 22:25 EST 4 mcg intravenous, PRN, Starting on Tue03/16/21 at 2225, Until Tue03/17/21 at 0031, Routine, Anesthesia Intraprocedure Given 03/16/2021 22:14 EST 8 mcg ePHEDrine injection Given 03/16/2021 22:54 EST 10 mg intravenous, PRN, Starting on Tue03/16/21 at 2254, Until Tue03/17/21 at 0031, Routine, Anesthesia Intraprocedure fentaNYL citrate (PF) injection Given 03/16/2021 22:23 EST 25 mcg intravenous, PRN, Starting on Tue03/16/21 at 2156, Until Tue03/17/21 at 0031, Routine, Anesthesia Intraprocedure Given 03/16/2021 21:56 EST 25 mcg lactated ringers (LR) infusion New Bag 03/16/2021 23:14 EST 25 mL/hr, intravenous, CONTINUOUS, Starting on Tue03/16/21 at 2200, Until Tue03/17/21 at 0216, Routine, Preprocedure New Bag 03/16/2021 21:56 EST midazolam (PF) (VERSED) injection Given 03/16/2021 22:26 EST 2 mg intravenous, PRN, Starting on Tue03/16/21 at 2156, Until Tue03/17/21 at 0031, Routine, Anesthesia Intraprocedure Given 03/16/2021 21:56 EST 2 mg propOFol (DIPRIVAN) injection Rate Change 03/16/2021 22:42 25 mcg/kg/min 14.97 mL/hr intravenous, FA IP EQF EST CONTINUOUS PRN FOR ONE STEP MEDS, Starting on Tue03/16/21 at 2229, Until Tue03/17/21 at 0031, Routine, Anesthesia Intraprocedure New Bag 03/16/2021 22:29 EST 75 mcg/kg/min 44.91 mL/hr documented in this encounter Orders Medications Ordered That Might Not Have Count Last Ord ered Date First Ordered Date Been Administered bupivacaine (PF) (MARCAINE) 0.5% injection 1 03/16 documented in this encounter Care Teams Barber Relationship Specialty Start Date End Date Lamine Benton MD PCP - General 07/17/18 4 [facility] [address] [place] [address] Unknown, Provider, 04/11/15 documented as of this encounter
--- OUTSIDE RECORDS SUMMARY | 2022-03-23 11:08 | XMS_ITS | Encounter Summary ---
:1955 Author Organization [facility] Address [address] [place] [address] Care Team Providers Name Role Phone Unknown, Provider Unavailable Lamine Benton MD Primary Care Provider [phone] Encounter Details Date Type Department Care Team Description 06/09/2021 Travel Social History Tobacco Use Types Packs/Day [...] on filedocumented in this encounter Care Teams Supervisor [employer] Relationship Specialty Start Date End Date Lamine Benton MD PCP - General 07/17/18 4 [facility] [address] [place], [place] [id number] Unknown, ProviderMD 04/11/15 documented as of this encounter
--- OUTSIDE RECORDS SUMMARY | 2022-03-23 11:08 | XMS_ITS | Encounter Summary ---
:1955 Author Organization [facility] Address [address] [place] [address] Care Team Providers Name Role Phone Unknown, Provider Unavailable Lamine Benton MD Primary Care Provider [phone] Encounter Details Date Type Department Care Team Description 03/17/2022 Travel Social History Tobacco Use Types Packs/Day [...] on filedocumented in this encounter Care Teams Development Vice President Relationship Specialty Start Date End Date Lamine Benton MD PCP - General 07/17/18 4 [facility] [address] [place], [place] [address] Unknown, ProviderMD 04/11/15 documented as of this encounter
--- OUTSIDE RECORDS SUMMARY | 2022-03-23 11:08 | XMS_ITS | Encounter Summary ---
:1955 Author Organization [facility] Address [address] [place] [address] Care Team Providers Name Role Phone Unknown, Provider Unavailable Lamine Benton MD Primary Care Provider [phone] Reason for Visit Reason Comments COVID-19 Encounter Details Date Type Department Care Team Description 12/26/2021 [place] [facility] [place] Luisana Mayorga MD COVID-19 (Primary Dx); Clinic [address] Heart murmur, aortic [address] [place] [address] [address] [place] [address] Social History Tobacco Use Types Packs/Day Years Used Date Smoking Tobacco: Former Cigarettes Quit : 03/16/1980 Smokeless Tobacco: Never Sex Assigned at Date Recorded Male 04/27/2021 18:11 EST documented as of this encounter Last Filed Vital Signs Vital Sign Reading Time Taken Comments Blood Pressure 160/70 12/26/2021 1603 EDT Pulse 86 12/26/2021 1603 EDT Temperature 38.7 ??C (101.7 ??F) 12/26/2021 1603 EDT Respiratory Rate 16 12/26/2021 1603 EDT Oxygen Saturation 96% 12/26/2021 1603 EDT Inhaled Oxygen Concentration - - Weight - [...] making decisions? documented as of this encounter Patient Instructions Patient InstructionsHelen Mayorga MD - 12/26/2021 16:00 EDT 1. [id number] infection -Drink plenty of fluids, elevate your head with rest. - nirmatrelvir-ritonavir (PAXLOVID, EUA,) 300 mg (150 mg x 2)-100 mg tablet; Take 3 Tablets by mouth2 times daily for 5 days. Dispense: 1 Each; Refill: 0 1.Do NOT take Atorvastatin for the 5 days that you are taking the Paxlovid. -Take Acetaminophen 1000 mg oral up to 3 times daily for fever and body aches. AND/OR Ibuprofen 400 mg oral up to 4 times daily with food for same. There is a RISK of blood clots with COVID. SO, for chest pains, acute short breath, severe lightheadget yourself to the ER. documented in this encounter Ordered Prescriptions Prescription Sig Dispensed Refills Start Date End Date nirmatrelvir-ritonavir Take 3 Tablets by 1 Each 0 202112/31/2021 (PAXLOVID, EUA,) 300 mg mouth 2 times daily (150 mg x 2)-100 mg for 5 days. tabletIndications: COVID-19 documented in this encounter Progress Notes Yany Peguero MA - 12/26/2021 1600 EDT CC/HPI: Pt +COVID 12/26, interested in anti-viral Covid Screening: In the last 72 hours, has the patient had: New or unusual cough, shortness of breath, new nasal congestion, sore throat, fever, chills, body aches, or new loss of taste or smell without a reasonable alternative diagnosis*? (If yes, assign to [facility]) In the past 10 days, has the patient had a positive Covid test OR a confirmed close Covid exposure (<6ft for > 15mins in 24hr period)? (if yes, assign to [facility], regardless of vaccination status) +COVID 9/3 *may be determined by RN or in discussion with available provider (EQUIPMENT TESTER's and CCA's can defer to Charge Nurse to complete triage when appropriate) PCP: Lamine Benton Helen Mayorga MD - 12/26/2021 1600 EDT [facility] [place] [facility] Chief Complaint(s): COVID-19 HPI: came down with COVID 2 days ago. She had temp to 103. This morning, Saurav came down with fever to 101.2, deep cough today. Positive home COVID test this morning. Positive runny nose. NO headache. Feels lightheaded. NO sore throat to date. He has a history of HTN, hyperlipidemia, prediabetes. Has had 2 J&J vaccines. 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 I have reviewed current problem list and current medications. Social History Occupational History ??? Not on file Tobacco Use ??? Smoking status: Former Smoker Quit date: 03/16/1980 Years since quittin.8 ??? Smokeless tobacco: Never Used Substance and Sexual Activity ??? Alcohol use: Not on file ??? Drug use: Not on file ??? Sexual activity: Not on file ROS:no nausea, vomiting. Objective: Examination: Vitals: BP (!) 160/70 (BP Cuff Location: Right arm, BP Patient Position: Sitting, BP Cuff Sizes: Adult, large) Pulse 86 Temp (!) 38.7 ??C (101.7 ??F) (Oral) Resp 16 SpO2 96% There is no height or weight on file to calculate BMI. WDWN WM in mild discomfort TMs clear. Nares without discharge. Throat with crowded oropharynx, moderate erythema and edema Neck supple without nodes, thyromegaly CV RR S1S2 without murmur rub gallop Lungs clear to auscultation Extremities- walks with limp favoring right lower leg Skin hot and moist. Assessment & Plan: 1. [id number] infection -Drink plenty of fluids, elevate your head with rest. - nirmatrelvir-ritonavir (PAXLOVID, EUA,) 300 mg (150 mg x 2)-100 mg tablet; Take 3 Tablets by mouth2 times daily for 5 days. Dispense: 1 Each; Refill: 0 1.Do NOT take Atorvastatin for the 5 days that you are taking the Paxlovid. -Take Acetaminophen 1000 mg oral up to 3 times daily for fever and body aches. AND/OR Ibuprofen 400 mg oral up to 4 times daily with food for same. There is a RISK of blood clots with COVID. SO, for chest pains, acute short breath, severe lightheadget yourself to the ER. 2. Aortic heart murmur- I do not see any evidence of Cardiac US in chart, but I suspect it may be inchart with PCP. Recommend follow up ECHO if there is no evidence of this at PCP's office. documented in this encounter Plan of Treatment Not on filedocumented as of this encounter Visit Diagnoses Diagnosis COVID-19 - Primary Heart murmur, aortic Aortic valve disorders documented in this encounter Care Teams Poultry And Fish Butcher Relationship Specialty Start Date End Date Lamine Benton MD PCP - General 07/17/18 4 [facility] [address] [place] [address] Unknown, ProviderMD 04/11/15 documented as of this encounter
--- OUTSIDE RECORDS SUMMARY | 2022-03-23 11:08 | XMS_ITS | Encounter Summary ---
:1955 Author Organization [facility] Address [address] [place] [address] Care Team Providers Name Role Phone Unknown, Provider Unavailable Lamine Benton MD Primary Care Provider [phone] Reason for Visit Reason Comments Follow-up Fracture Encounter Details Date Type Department Care Team Description 10/15/2021 Office Visit [facility] - Steffi Hendrix Closed fracture of [facility] Orthopedics & MD [place] right tibia and fibula Sport Medicine [address] with routine healing, [address] subsequent encounter [address] [place], (Primary Dx) [place] [address] [place] [id number] Social History Tobacco Use Types Packs/Day Years [...] have Coronavirus/COVID-19? documented as of this encounter Last Filed Vital Signs Vital Sign Reading Time Taken Comments Blood Pressure - - Pulse - - Temperature 36.7 ??C (98.1 ??F) 10/15/2021 1527 EDT Respiratory Rate - - Oxygen Saturation - [...] documented as of this encounter Progress Notes Jitendra Kowalski MA - 10/15/2021 1515 EDT Attempting kneel down it feels like something is missing Steffi Hendrix MD - 10/15/2021 1515 EDT Orthopaedic Surgery Office Note Quinn Daniel 1955 [id number] Chief Complaint: Chief Complaint Patient presents with ??? Right Leg - Follow-up, Fracture History of Present Illness: Quinn Daniel is a very pleasant 65 y.o. male who presents today for follow- up of his right tib/fib fracture. He is s/p IMN for this on 03/17/21. He is doing well with improving mobility. Has been back to most of his regular activities including mowing, but when trying to kneel it feels like something is missing. Generally compression socks have been helping swelling. Review of Systems: As above. Active Ambulatory [...] Former Smoker Quit date: 03/16/1980 Years since quittin.6 ??? Smokeless tobacco: Never Used Substance and Sexual Activity ??? Alcohol use: Not on file ??? Drug use: Not on file ??? Sexual activity: Not on file Physical Examination: Patient Vitals for the past 24 hrs: Temp 10/15/21 1527 36.7 ??C (98.1 ??F) Gen- no acute distress, awake alert [...] follow- up of his right tib/fib fracture. Ok to keep progressing his activity. I think the sensation while kneeling is the normal apprehension or skin nerve sensitivity common with this pre-patellar incision. OK to try to ease himself back into kneeling on it. We will see back at the one year anniversary with repeat xrays. Steffi Hendrix MD Orthopaedics and Sports Medicine [facility] [address] [place], [place] documented in this encounter Plan of Treatment Not on filedocumented as of this encounter Procedures Procedure Name Priority Date/Time Associated Diagnosis Comme nts XR TIBIA FIBULA Routine 10/15/2021 15:37 Closed fracture of Re sults for this RIGHT 2 VIEWS EDT right tibia and procedure a re in fibula with routine the resu lts healing, subsequent section. encounter documented in this encounter Results XR TIBIA FIBULA RIGHT 2 VIEWS (10/15/2021 15:37 EDT) Anatomical Region Laterality Modality Lower Extremities Computed Radiography Specimen (Source) Anatomical Collection Method Collection Time Re ceived Time Location / / Volume Laterality 10/15/2021 15:39 EDT Narrative 10/15/2021 15:39 EDT INDICATION: s/p tib-fib fracture. COMPARISON: Right lower leg 08/06/2021. TECHNIQUE: 2 views of the right lower le g were obtained. FINDINGS: There is mild interval but incomplete he aling of the internally fixed fracture of the distal tibia diaphysis. No instrumentation failure is seen. The healed fracture deformity of the fibula diaphysis is unchanged in position and alignment whe n compared to the prior exam. Procedure Note Leonard Jimenez MD - 2 INDICATION: s/p tib-fib fracture. COMPARISON: Right lower leg 08/06/2021. TECHNIQUE: 2 views of the right lower le g were obtained. FINDINGS: There is mild interval but incomplete he aling of the internally fixed fracture of the distal tibia diaphysis. No instrumentation failure is seen. The healed fracture deformity of the fibula diaphysis is unchanged in position and alignment when compared to the prior exam. Steffi Hendrix MD IMG DIAGNOSTIC IMAGING ORDER GUERA documented in this encounter Visit Diagnoses Diagnosis Closed fracture of right tibia and fibul a with routine healing, subsequent encounter - Primary documented in this encounter Care Teams Biologist Aide Relationship Specialty Start Date End Date Lamine Benton MD PCP - General 07/17/[address] [address] Unknown, Provider, 04/11/15 documented as of this encounter
--- OUTSIDE RECORDS SUMMARY | 2022-03-23 11:08 | XMS_ITS | Encounter Summary ---
:1955 Author Organization [facility] Address [address] [place] [address] Care Team Providers Name Role Phone Unknown, Provider Unavailable Lamine Benton MD Primary Care Provider [phone] Reason for Visit Reason Comments Ankle Injury slipped on plywood while [place] and heard a snap in the ankle and states the foot went floppy Auth/Cert Specialty Diagnoses / Procedures Referred By Contact Refer red To Contact Diagnoses Tibia/fibula fracture Tibia/fibula fracture, right, closed, initial encounter Referral ID Status Reason Start Date Expiration Date Visits Requ ested Visits Authorized [id number] 1 1 Encounter Details Date Type Department Care Team Description 03/16/2021 - Emergency [facility] - Snehal Moore DO [address] [place] [address] Tibia/fibula fracture (Primary Dx); 03/17/2021 [facility] [place] Medical / Aristeo Avila MD [address] [place] [address] Closed fracture of right tibia and fibul a, initial encounter Surgical Department Brad Hendrix MD [address] [place] [address] [address] [place] [address] Social History Tobacco Use Types Packs/Day Years [...] Sign Reading Time Taken Comments Blood Pressure 133/71 03/17/2021 0850 EST Pulse - - Temperature 36.4 ??C (97.5 ??F) 03/17/2021 0850 EST Respiratory Rate 16 03/17/2021 0858 EST Oxygen Saturation 93% 03/17/2021 0858 EST Inhaled Oxygen Concentration - - Weight 99.8 kg (220 lb) 03/17/2021 0125 EST Height 177.8 cm (5' 10) 03/17/2021 0125 EST Body Mass Index 31.57 03/17/2021 0125 EST documented in this encounter Functional Status Functional [...] making decisions? documented as of this encounter Discharge Summaries Brad Hendrix MD - 03/17/2021 1144 EST Orthopaedics Discharge Summary Quinn Daniel 1955 [id number] Primary Care Physician: Lamine Benton CC: N/A Primary Diagnosis: Right tib/fib fracture Problem List: Patient Active Problem List Diagnosis ??? Benign prostatic hyperplasia ??? Hyperlipidemia ??? Hypertension ??? Leg cramps ??? Metabolic syndrome ??? Obesity ??? Osteoarthrosis ??? Prediabetes ??? Seborrhea ??? Anaphylactic reaction to bee sting ??? Venous insufficiency ??? Toxic effect of venom of wasps, accidental (unintentional), initial encounter ??? Tibia/fibula fracture Procedures: Right tibia IMN Consultations: Physical therapy Occupational therapy Care management History of Present Illness: (from Operative Note or Admission H&P) Patient is a 65 y.o. male who presents with patient presents to the emergency room after slipping daphnie piece of plywood outside his car and feeling multiple snaps and breaks in his right leg. He had severe pain instability noted in the leg inability to walk afterwards. Presenting to the emergency roomradiographs revealed a displaced tib-fib fracture fibula broken in 2 places. Hospital Course: Mr. Quinn Daniel was admitted as above. They underwent IMN without any noted complications. Hospital course was notable for good mobilization and pain control. At the time of discharge they were mobilizing with physical therapy and were cleared for safe discharge to home. They had stable vital signs, were voiding spontaneously and pain was controlled on oral medications. Allergies: No Known Allergies Medication Reconciliation at Discharge: Exam on Discharge: Patient Vitals for the past 24 hrs: BP Temp Temp src Resp SpO2 Height Weight 03/17/21 0858 -- -- -- 16 93 % -- -- 03/17/21 0850 133/71 36.4 ??C (97.5 ??F) Oral 18 95 % -- -- 03/17/21 0800 -- -- -- 16 93 % -- -- 03/17/21 0612 132/67 36.4 ??C (97.5 ??F) Oral 16 93 % -- -- 03/17/21 0125 132/75 36.4 ??C (97.5 ??F) Oral 16 100 % 177.8 cm (70) 99.8 kg (220 lb) 03/17/21 0112 134/74 -- -- -- -- -- -- 03/17/215 -- 37 ??C (98.6 ??F) Tympanic -- -- -- -- 03/17/21 0100 126/70 -- -- 10 99 % -- -- 03/17/21 0045 129/70 -- -- 13 100 % -- -- 03/17/21 0030 130/75 -- -- 12 -- -- -- 03/17/21 0029 130/73 36.6 ??C (97.9 ??F) Tympanic 15 98 % -- -- 03/17/21 0025 124/66 -- -- 18 96 % -- -- 03/16/211916 -- -- -- -- 95 % -- -- 03/16/211915 -- -- -- -- 95 % -- -- 03/16/211914 -- -- -- -- 97 % -- -- 03/16/211913 -- -- -- -- 98 % -- -- 03/16/211912 -- -- -- -- 97 % -- -- 03/16/211911 -- -- -- -- 96 % -- -- 03/16/211910 -- -- -- -- 97 % -- -- 03/16/211909 -- -- -- -- 93 % -- -- 03/16/211908 -- -- -- -- 95 % -- -- 03/16/211907 -- -- -- -- 96 % -- -- 03/16/211906 -- -- -- -- 96 % -- -- 03/16/211905 -- -- -- -- 96 % -- -- 03/16/211904 -- -- -- -- 97 % -- -- 03/16/211903 -- -- -- -- 95 % -- -- 03/16/211902 -- -- -- -- 94 % -- -- 03/16/211901 -- -- -- -- 96 % -- -- 03/16/211900 -- -- -- -- 96 % -- -- 03/16/211858 -- -- -- -- 97 % -- -- 03/16/211857 -- -- -- -- 95 % -- -- 03/16/211856 -- -- -- -- 96 % -- -- 03/16/211855 -- -- -- -- 95 % -- -- 03/16/211854 -- -- -- -- 96 % -- -- 03/16/211853 -- -- -- -- 96 % -- -- 03/16/211852 -- -- -- -- 93 % -- -- 03/16/211851 -- -- -- -- 95 % -- -- 03/16/211850 -- -- -- -- 96 % -- -- 03/16/211849 -- -- -- -- 95 % -- -- 03/16/211848 -- -- -- -- 92 % -- -- 03/16/211847 -- -- -- -- 95 % -- -- 03/16/211846 -- -- -- -- 98 % -- -- 03/16/211845 -- -- -- -- 98 % -- -- 03/16/211844 -- -- -- -- 98 % -- -- 03/16/211843 -- -- -- -- 98 % -- -- 03/16/211842 -- -- -- -- 98 % -- -- 03/16/211841 -- -- -- -- 97 % -- -- 03/16/211840 -- -- -- -- 99 % -- -- 03/16/211839 -- -- -- -- 94 % -- -- 03/16/211838 -- -- -- -- 91 % -- -- 03/16/211837 -- -- -- -- 98 % -- -- 03/16/211836 -- -- -- -- 97 % -- -- 03/16/211835 -- -- -- -- 98 % -- -- 03/16/211834 -- -- -- -- 98 % -- -- 03/16/211833 -- -- -- -- 97 % -- -- 03/16/211832 -- -- -- -- 99 % -- -- 03/16/211831 -- -- -- -- 98 % -- -- 03/16/211830 -- -- -- -- 98 % -- -- 03/16/211829 (!) 165/ -- -- -- 98 % -- -- 03/16/211828 -- -- -- -- 97 % -- -- 03/16/211827 -- -- -- -- 96 % -- -- 03/16/211826 -- -- -- -- 97 % -- -- 03/16/211825 -- -- -- -- 97 % -- -- 03/16/211824 -- -- -- -- 98 % -- -- 03/16/211818 -- -- -- -- 98 % -- -- 03/16/211817 -- -- -- -- 98 % -- -- 03/16/211816 -- -- -- -- 99 % -- -- 03/16/211815 -- -- -- -- 98 % -- -- 03/16/211814 -- -- -- -- 98 % -- -- 03/16/211813 -- -- -- -- 96 % -- -- 03/16/211812 -- -- -- -- 97 % -- -- 03/16/211811 -- -- -- -- 98 % -- -- 03/16/211810 -- -- -- -- 98 % -- -- 03/16/211809 -- -- -- -- 98 % -- -- 03/16/211808 -- -- -- -- 99 % -- -- 03/16/211807 -- -- -- -- 98 % -- -- 03/16/211806 -- -- -- -- 97 % -- -- 03/16/211805 -- -- -- -- 96 % -- -- 03/16/211804 -- -- -- -- 97 % -- -- 03/16/211803 -- -- -- -- 98 % -- -- 03/16/211802 -- -- -- -- 98 % -- -- 03/16/211801 -- -- -- -- 98 % -- -- 03/16/211800 -- -- -- -- 98 % -- -- 03/16/21 1800 (!) 146/79 -- -- -- 97 % -- -- 03/16/211758 -- -- -- -- 97 % -- -- 03/16/211757 -- -- -- -- 90 % -- -- 03/16/211756 -- -- -- -- 96 % -- -- 03/16/211755 -- -- -- -- 94 % -- -- 03/16/211754 -- -- -- -- 93 % -- -- 03/16/211753 -- -- -- -- 95 % -- -- 03/16/211752 -- -- -- -- 96 % -- -- 03/16/211751 -- -- -- -- 96 % -- -- 03/16/211750 -- -- -- -- 95 % -- -- 03/16/211749 -- -- -- -- 96 % -- -- 03/16/211748 -- -- -- -- 97 % -- -- 03/16/211747 -- -- -- -- 97 % -- -- 03/16/211746 -- -- -- -- 97 % -- -- 03/16/211745 -- -- -- -- 96 % -- -- 03/16/211744 -- -- -- -- 95 % -- -- 03/16/211743 -- -- -- -- 97 % -- -- 03/16/211742 -- -- -- -- 95 % -- -- 03/16/211741 -- -- -- -- 96 % -- -- 03/16/211740 -- -- -- -- 98 % -- -- 03/16/211739 -- -- -- -- 97 % -- -- 03/16/211738 -- -- -- -- 98 % -- -- 03/16/211737 -- -- -- -- 97 % -- -- 03/16/211736 -- -- -- -- 98 % -- -- 03/16/211735 -- -- -- -- 98 % -- -- 03/16/211734 -- -- -- -- 98 % -- -- 03/16/211733 -- -- -- -- 96 % -- -- 03/16/211732 -- -- -- -- 91 % -- -- 03/16/211731 -- -- -- -- 93 % -- -- 03/16/211730 -- -- -- -- 93 % -- -- 03/16/211729 (!) 152/79 -- -- -- 98 % -- -- 03/16/211728 -- -- -- -- 98 % -- -- 03/16/211727 -- -- -- -- 98 % -- -- 03/16/211726 -- -- -- -- 97 % -- -- 03/16/211725 -- -- -- -- 97 % -- -- 03/16/211724 -- -- -- -- 99 % -- -- 03/16/211723 -- -- -- -- 98 % -- -- 03/16/211722 -- -- -- -- 98 % -- -- 03/16/211721 -- -- -- -- 97 % -- -- 03/16/211720 -- -- -- -- 98 % -- -- 03/16/211719 -- -- -- -- 98 % -- -- 03/16/211718 -- -- -- -- 97 % -- -- 03/16/211717 -- -- -- -- 96 % -- -- 03/16/211716 -- -- -- -- 97 % -- -- 03/16/211715 -- -- -- -- 96 % -- -- 03/16/211714 -- -- -- -- 97 % -- -- 03/16/211713 -- -- -- -- 97 % -- -- 03/16/211712 -- -- -- -- 98 % -- -- 03/16/211711 -- -- -- -- 98 % -- -- 03/16/211710 -- -- -- -- 98 % -- -- 03/16/211709 -- -- -- -- 97 % -- -- 03/16/211708 -- -- -- -- 98 % -- -- 03/16/211707 -- -- -- -- 98 % -- -- 03/16/211706 -- -- -- -- 96 % -- -- 03/16/211705 -- -- -- -- 96 % -- -- 03/16/211704 -- -- -- -- 96 % -- -- 03/16/211703 -- -- -- -- 95 % -- -- 03/16/211702 -- -- -- -- 97 % -- -- 03/16/211701 -- -- -- -- 97 % -- -- 03/16/211700 -- -- -- -- 96 % -- -- 03/16/211699 (!) 151/81 -- -- -- 98 % -- -- 03/16/211658 -- -- -- -- 97 % -- -- 03/16/211657 -- -- -- -- 95 % -- -- 03/16/211656 -- -- -- -- 98 % -- -- 03/16/211655 -- -- -- -- 98 % -- -- 03/16/211654 -- -- -- -- 98 % -- -- 03/16/211653 -- -- -- -- 98 % -- -- 03/16/211652 -- -- -- -- 97 % -- -- 03/16/211651 -- -- -- -- 98 % -- -- 03/16/211650 -- -- -- -- 98 % -- -- 03/16/211649 -- -- -- -- 98 % -- -- 03/16/211648 -- -- -- -- 98 % -- -- 03/16/211647 -- -- -- -- 98 % -- -- 03/16/211646 -- -- -- -- 98 % -- -- 03/16/211645 -- -- -- -- 98 % -- -- 03/16/211644 -- -- -- -- 98 % -- -- 03/16/211643 -- -- -- -- 98 % -- -- 03/16/211642 -- -- -- -- 98 % -- -- 03/16/211641 -- -- -- -- 97 % -- -- 03/16/211640 -- -- -- -- 97 % -- -- 03/16/211639 -- -- -- -- 98 % -- -- 03/16/211638 -- -- -- -- 98 % -- -- 03/16/211637 -- -- -- -- 98 % -- -- 03/16/211636 -- -- -- -- 97 % -- -- 03/16/211635 -- -- -- -- 98 % -- -- 03/16/211634 -- -- -- -- 98 % -- -- 03/16/211633 -- -- -- -- 97 % -- -- 03/16/211632 -- -- -- -- 97 % -- -- 03/16/211631 -- -- -- -- 97 % -- -- 03/16/211630 -- -- -- -- 98 % -- -- 03/16/211629 (!) 142/74 -- -- -- 97 % -- -- 03/16/211628 -- -- -- -- 98 % -- -- 03/16/211627 -- -- -- -- 98 % -- -- 03/16/211626 -- -- -- -- 99 % -- -- 03/16/211625 -- -- -- -- 99 % -- -- 03/16/211624 -- -- -- -- 99 % -- -- 03/16/211623 -- -- -- -- 99 % -- -- 03/16/211622 -- -- -- -- 98 % -- -- 03/16/211621 -- -- -- -- 98 % -- -- 03/16/211620 -- -- -- -- 99 % -- -- 03/16/211619 -- -- -- -- 99 % -- -- 03/16/211618 -- -- -- -- 98 % -- -- 03/16/211617 -- -- -- -- 99 % -- -- 03/16/211616 (!) 152/77 -- -- -- 98 % -- -- 03/16/211615 -- -- -- -- 98 % -- -- 03/16/211614 -- -- -- -- 98 % -- -- 03/16/211613 -- -- -- -- 98 % -- -- 03/16/211612 -- -- -- -- 97 % -- -- 03/16/211611 -- -- -- -- 99 % -- -- 03/16/211610 -- -- -- -- 99 % -- -- 03/16/211609 -- -- -- -- 99 % -- -- 03/16/211608 -- -- -- -- 98 % -- -- 03/16/211607 -- -- -- -- 98 % -- -- 03/16/211606 -- -- -- -- 99 % -- -- 03/16/211605 -- -- -- -- 98 % -- -- 03/16/211604 -- -- -- -- 98 % -- -- 03/16/21 160 -- -- -- -- 98 % -- -- 03/16/211602 -- -- -- -- 97 % -- -- 03/16/21 1602 -- -- -- -- 97 % -- -- 03/16/21 1601 -- -- -- -- 97 % -- -- 03/16/21 1600 -- -- -- -- 95 % -- -- 03/16/21 1557 -- -- -- -- 94 % -- -- 03/16/21 1556 -- -- -- -- 99 % -- -- 03/16/21 1555 -- -- -- -- 97 % -- -- 03/16/21 1554 -- -- -- -- 98 % -- -- 03/16/21 1553 -- -- -- -- 98 % -- -- 03/16/21 1552 -- -- -- -- 97 % -- -- 03/16/21 1551 -- -- -- -- 97 % -- -- 03/16/21 1550 -- -- -- -- 97 % -- -- 03/16/21 1549 -- -- -- -- 96 % -- -- 03/16/21 1548 -- -- -- -- 96 % -- -- 03/16/21 1547 -- -- -- -- 95 % -- -- 03/16/21 1546 -- -- -- -- 94 % -- -- 03/16/21 1545 -- -- -- -- 94 % -- -- 03/16/21 1544 -- -- -- -- 94 % -- -- 03/16/21 1543 -- -- -- -- 95 % -- -- 03/16/21 1542 -- -- -- -- 96 % -- -- 03/16/21 1541 -- -- -- -- 95 % -- -- 03/16/21 1540 -- -- -- -- 97 % -- -- 03/16/21 1539 -- -- -- -- 96 % -- -- 03/16/21 1538 -- -- -- -- 97 % -- -- 03/16/21 1537 -- -- -- -- 97 % -- -- 03/16/21 1536 -- -- -- -- 96 % -- -- 03/16/21 1535 -- -- -- -- 97 % -- -- 03/16/21 1534 -- -- -- -- 97 % -- -- 03/16/21 1533 -- -- -- -- 96 % -- -- 03/16/21 1532 -- -- -- -- 96 % -- -- 03/16/21 1531 -- -- -- -- 94 % -- -- 03/16/21 1530 -- -- -- -- 94 % -- -- 03/16/21 1529 -- -- -- -- 94 % -- -- 03/16/21 1528 -- -- -- -- 95 % -- -- 03/16/21 1527 -- -- -- -- 95 % -- -- 03/16/21 1526 -- -- -- -- 97 % -- -- 03/16/21 1525 -- -- -- -- 97 % -- -- 03/16/21 1524 -- -- -- -- 97 % -- -- 03/16/21 1523 -- -- -- -- 97 % -- -- 03/16/21 1522 -- -- -- -- 94 % -- -- 03/16/21 1445 -- -- -- 16 99 % -- -- 03/16/21 1444 (!) 169/78 -- -- 16 98 % 177.8 cm (70) 99.8 kg (220 lb) Gen- awake, alert, appr BP 133/71 (BP Cuff Location: Left arm, BP Patient Position: Sitting) Temp 36.4 ??C (97.5 ??F) (Oral) Resp 16 Ht 177.8 cm (70) Wt 99.8 kg (220 lb) SpO2 93% BMI 31.57 kg/m? Intake/Output Summary (Last 24 hours) at 03/17/2021 1141 Last data filed at 03/17/2021 0100 Gross per 24 hour Intake 2110 ml Output 100 ml Net 2010 ml ? Gen: Awake alert appropriate, no acute distress ?? Right lower extremity- ?? Splint in place, clean dry and intact Compartments soft Light touch sensation intact in superficial peroneal, deep peroneal and tibial distributions. Firing toe and flexion and extension with good strength. ?? Capillary refill intact and <2 seconds Foot warm and well-perfused. ?? Imaging: XR ANKLE RIGHT 3 OR MORE VIEWS Result Date: 03/16/2021 INDICATION: fall, pain TECHNIQUE: 3 views right ankle. 2 views tibia-fibula. COMPARISON: None. FINDINGS: Right lower leg: there is an oblique fracture through the proximal shaft of the fibula. There riddhi oblique distal fibula neck fracture. There is a oblique overlapping mid/distal fibula fracture. The proximal shaft is displaced approximately 1.5 cm medially relative to the more distal shaft. Right ankle: The oblique distal fibula neck fractures seen extending to the margin of the ankle joint. The distal head of the fibula is displaced up to 2 mm in the lateral direction. The medial malleolus is well aligned. 1. Oblique overlapping slightly displaced mid/distal tibia fracture. 2. Fibula proximal shaft and distal neck fractures. The distal head of the fibula is displaced approximately 2 mm in the lateral direction. FL C-ARM 0-1 HOUR Result Date: 03/17/2021 This is a non-reportable exam. XR TIBIA FIBULA RIGHT 2 VIEWS Result Date: 03/17/2021 PROCEDURE INFORMATION: Exam: XR Right Tibia and Fibula Exam date and time: 03/17/2021 4:00 AM Age: 65 years old Clinical indication: Screening exam; S/P imn; Prior surgery; Surgery date: Post-operative(0-2 days); Surgery type: RT tibial garima TECHNIQUE: Imaging protocol: XR Right tibia and fibula. Views: 2 views. COMPARISON: CR XR TIBIA FIBULA RIGHT 2 VIEWS 03/16/2021 7:42 PM FINDINGS: Limitations: Splint is seen in place, obscuring bony details. Bones/joints: Intramedullary garima and screws are seen in the tibia there is an oblique fracture deformity of the distal tibial shaft with adequate anatomical alignment. Slightly displaced fracture of the proximal fibula is demonstrated. Nondisplaced fracture of the distal fibula is partially obscured by the splint. Soft tissues: Normal. 1. Intramedullary garima and screws transfixing a fracture of the distal tibia. 2. Fractures of the proximal and distal fibula. 3. Splint is seen in place, obscuring bony details. THIS DOCUMENT HAS BEEN ELECTRONICALLY SIGNED BY JON ZALDIVAR MD FOR ANY QUESTIONS OR CONCERNS REGARDING THIS REPORT PLE ASE CALL [facility] AT [phone] XR TIBIA FIBULA RIGHT 2 VIEWS Result Date: 03/16/2021 PROCEDURE INFORMATION: Exam: XR Right Tibia and Fibula Exam date and time: 03/16/2021 7:40 PM Age: 65 years old Clinical indication: Pain; Other: S/P casting TECHNIQUE: Imaging protocol: XR Right tibiaand fibula. Views: 2 views. COMPARISON: CR XR TIBIA FIBULA RIGHT 2 VIEWS 03/16/2021 2:57 PM FINDINGS: Since the previous exam, there has been placement of a fiberglass cast across the comminuted fracture of the proximal fibula and the spiral fracture of the distal tibia. There is anterior angulation of the tibial fracture There is also a fracture involving the distal fibula. Casted fractures of the fibula and tibia as described. THIS DOCUMENT HAS BEEN ELECTRONICALLY SIGNED BY COLTON PATEL MD FOR ANY QUESTIONS OR CONCERNS REGARDING THIS REPORT PLEASE CALL [facility] AT [phone] XR TIBIA FIBULA RIGHT 2 VIEWS Result Date: 03/16/2021 INDICATION: fall, pain TECHNIQUE: 3 views right ankle. 2 views tibia-fibula. COMPARISON: None. FINDINGS: Right lower leg: there is an oblique fracture through the proximal shaft of the fibula. There riddhi oblique distal fibula neck fracture. There is a oblique overlapping mid/distal fibula fracture. The proximal shaft is displaced approximately 1.5 cm medially relative to the more distal shaft. Right ankle: The oblique distal fibula neck fractures seen extending to the margin of the ankle joint. The distal head of the fibula is displaced up to 2 mm in the lateral direction. The medial malleolus is well aligned. 1. Oblique overlapping slightly displaced mid/distal tibia fracture. 2. Fibula proximal shaft and distal neck fractures. The distal head of the fibula is displaced approximately 2 mm in the lateral direction. Labs: Results for orders placed or performed during the hospital encounter of 03/16/21 COVID-19 TESTING ([facility], [facility], ) Specimen: Nasopharynx; Swab Result Value Ref Range Performing Lab [facility] COVID-19 PMC [facility] [place] Specimen: Nasopharynx; Swab Result Value Ref Range COVID-19 rt-PCR Result Negative Negative HOLD GREEN TOP Result Value Ref Range Hold Hold HOLD LAVENDER TOP Result Value Ref Range Hold HOLD SST Result Value Ref Range Hold Hold COMPLETE BLOOD COUNT AND DIFFERENTIAL Result Value Ref Range WBC 12.63 (H) 4.00 - 10.40 K/cmm RBC 5.01 4.36 - 5.78 M/cmm Hemoglobin 14.7 13.8 - 17.3 gm/dL HCT 43.7 39.5 - 50.2 % MCV 87 81 - 95 fl MCH 29.3 27.6 - 33.0 pg MCHC 33.6 32.8 - 36.4 gm/dL RDW-CV 13.2 <14.2 % RDW-SD 41.9 <46.0 fl PLT 183 141 - 377 K/cmm MPV 10.7 9.5 - 12.7 fl Neutrophils 79.0 % Lymphocytes 10.1 % Monocytes 9.7 % Eosinophils 0.6 % Basophils 0.3 % Immature Grans 0.3 % Absolute Neutrophils 9.97 (H) 2.20 - 8.85 K/cmm Absolute Lymphocytes 1.27 1.09 - 3.30 K/cmm Absolute Monocytes 1.23 (H) 0.10 - 0.80 K/cmm Absolute Eosinophils 0.08 0.03 - 0.61 K/cmm Absolute Basophils 0.04 0.01 - 0.11 K/cmm Absolute Immature Grans 0.04 0.00 - 0.06 K/cmm Type of Differential: Auto BASIC METABOLIC PANEL (BMP) Result Value Ref Range Sodium 138 136 - 145 mmol/L Potassium 4.0 3.5 - 5.0 mmol/L Chloride 104 96 - 110 mmol/L CO2 Total 28 22 - 32 mmol/L Anion Gap 6 (L) 8 - 16 Glucose 98 70 - 100 mg/dL Calcium 8.8 8.5 - 10.5 mg/dL BUN 16 10 - 26 mg/dL Creatinine 0.82 0.66 - 1.25 mg/dL eGFR 92 >60 mL/min/1.73m2 BASIC METABOLIC PANEL (BMP) Result Value Ref Range Sodium 136 136 - 145 mmol/L Potassium 4.1 3.5 - 5.0 mmol/L Chloride 102 96 - 110 mmol/L CO2 Total 28 22 - 32 mmol/L Anion Gap 6 (L) 8 - 16 Glucose 114 (H) 70 - 100 mg/dL Calcium 8.6 8.5 - 10.5 mg/dL BUN 14 10 - 26 mg/dL Creatinine 0.67 0.66 - 1.25 mg/dL eGFR 99 >60 mL/min/1.73m2 COMPLETE BLOOD COUNT Result Value Ref Range WBC 10.42 (H) 4.00 - 10.40 K/cmm RBC 4.53 4.36 - 5.78 M/cmm Hemoglobin 13.3 (L) 13.8 - 17.3 gm/dL HCT 39.9 39.5 - 50.2 % MCV 88 81 - 95 fl MCH 29.4 27.6 - 33.0 pg MCHC 33.3 32.8 - 36.4 gm/dL RDW-CV 13.5 <14.2 % RDW-SD 43.6 <46.0 fl PLT 161 141 - 377 K/cmm MPV 10.9 9.5 - 12.7 fl TYPE AND SCREEN Result Value Ref Range ABO B Rh Factor Positive Antibody Screen Negative Specimen Expires: 03/19/2021 @ 23:59 Microbiology: N/A Condition at Discharge: Good Discharge Instructions:Discharge instructions were given to the patient at the time of discharge. Follow-up: 2 weeks with tib/fib xrays prior to appointment. Time spent: >30 minutes. documented in this encounter Discharge Instructions Discharge Instr - AVS First Brad Schwartz MD - 03/17/2021 10:57 EST Images from the original note were not included. Orthopaedics Discharge Instructions [facility] Surgery: RIGht tibia intra-medullary nail Surgeon: BRAD HENDRIX MD Diet: Please resume your normal diet when you feel ready. Activity: Partial weight bearing right leg Skin/Wound Care: Unless dirty please keep your operative dressing in place until follow-up. Bathing: Do not get cast wet. Symptoms to Call Your Doctor About: Fever > 101F, redness, drainage from the incision, worsening pain, worsening numbness or other concerning symptoms. Appointments: Please keep your follow-up appointment as scheduled. If you do not have an appointment please contact our office to be scheduled. General information about your condition/surgery: (see below) Please contact our Office with any questions or concerning symptoms at . [facility] Patient Instructions Broken Lower Leg: Care Instructions Your Care Instructions Treatment for your broken leg will depend on how bad the break is. Your doctor may have put your lower leg in a splint or a cast to allow it to heal or keep it stable until you see another doctor. It may take weeks or months for your leg to heal. You can help it heal with some care at home. You heal best when you take good care of yourself. Eat a variety of healthy foods, and don't smoke. Follow-up care is a salcedo part of your treatment and safety. Be sure to make and go to all appointments, and call your doctor if you are having problems. It's also a good idea to know your test results and keep a list of the medicines you take. How can you care for yourself at home? Put ice or a cold pack on your lower leg for 10 to 20 minutes at a time. Try to do this every 1 to 2hours for the next 3 days (when you are awake). Put a thin cloth between the ice and your cast or splint. Keep your cast or splint dry. Follow the cast care instructions your doctor gives you. If you have a splint, do not take it off unless your doctor tells you to. Be safe with medicines. Take pain medicines exactly as directed. If the doctor gave you a prescription medicine for pain, take it as prescribed. If you are not taking a prescription pain medicine, ask your doctor if you can take an zhwv-mly-rdvmnof medicine. Do not put weight on your leg unless your doctor tells you to. Use crutches to walk. Prop up your leg on pillows when you sit or lie down in the first few days after the injury. Keep your leg higher than the level of your heart. This will help reduce swelling. Follow instructions for exercises to keep your leg strong. Wiggle your toes often to reduce swelling and stiffness. When should you call for help? Call 911 anytime you think you may need emergency care. For example, call if: You have chest pain, are short of breath, or you cough up blood. You are very sleepy and you have trouble waking up. Call your doctor now or seek immediate medical care if: You have new or worse nausea or vomiting. You have new or worse pain. Your foot is cool or pale or changes color. You have tingling, weakness, or numbness in your toes. Your cast or splint feels too tight. You have signs of a blood clot in your leg (called a deep vein thrombosis), such as: Pain in your calf, back of the knee, thigh, or groin. Redness or swelling in your leg. Watch closely for changes in your health, and be sure to contact your doctor if: You have a problem with your splint or cast. You do not get better as expected. Where can you learn more? Go to https://www.[employer].net/[employer]ealth or log into your [employer] account at https://p3dsystems.[employer] Enter L198 in the search box to learn more about Broken Lower Leg: Care Instructions. Current as of: June 25, 2019 Content Version: 12.6 ?? [employer]. Care instructions adapted under license by [facility]. If you have questions about a medical condition or this instruction, always ask your healthcare professional. [employer] disclaims any warranty or liability for your use of this information. [facility] Patient Instructions Wearing a Plaster Cast: Care Instructions Your Care Instructions A cast protects a broken bone or other injury while it heals. Your cast is made of plaster. After a cast is put on, you can't remove it yourself. Your doctor or a broadcast operations technician will take it off. Follow-up care is a salcedo part of your treatment and safety. Be sure to make and go to all appointments, and call your doctor if you are having problems. It's also a good idea to know your test results and keep a list of the medicines you take. How can you care for yourself at home? General care Follow your doctor's instructions for when you can start using the limb that has the cast. Plaster casts may take several days before they are hard enough to protect the injured limb. When it's okay to put weight on your leg or foot cast, don't stand or walk on it unless it's designed for walking. Prop up the injured arm or leg on a pillow anytime you sit or lie down during the first 3 days. Try to keep it above the level of your heart. This will help reduce swelling. Put ice or a cold pack on your cast for 10 to 20 minutes at a time. Try to do this every 1 to 2 hours for the next 3 days (when you are awake). Put a thin cloth between the ice and your cast. Keep the cast dry. Be safe with medicines. Read and follow all instructions on the label. If the doctor gave you a prescription medicine for pain, take it as prescribed. If you are not taking a prescription pain medicine, ask your doctor if you can take an mksr-afs-hyhlkgh medicine. Do exercises as instructed by your doctor or physical therapist. These exercises will help keep yourmuscles strong and your joints flexible while you heal. Wiggle your fingers or toes on the injured arm or leg often. This helps reduce swelling and stiffness. Water and your cast Keep your cast completely dry. The plaster will start to break down if it gets wet. Use a bag or tape a sheet of plastic to cover your cast when you take a shower or bath or when you have any other contact with water. (Don't take a bath unless you can keep the cast out of the water.) Moisture can collect under the cast and cause skin irritation and itching. It can make infection morelikely if you had surgery or have a wound under the cast. Cast and skin care Try blowing cool air from a chairman & ceo or fan into the cast to help relieve itching. Never stick items under your cast to scratch the skin. Don't use oils or lotions near your cast. If the skin gets red or irritated around the edge of the cast, you may pad the edges with a soft material or use tape to cover them. When should you call for help? Call your doctor now or seek immediate medical care if: You have increased or severe pain. You feel a warm or painful spot under the cast. You have problems with your cast. For example: The skin under the cast hoffman or stings. The cast feels too tight or too loose. There is a lot of swelling near the cast. (Some swelling is normal.) You have a new fever. There is drainage or a bad smell coming from the cast. Your foot or hand is cool or pale or changes color. You have trouble moving your fingers or toes. You have symptoms of a blood clot in your arm or leg (called a deep vein thrombosis). These may include: Pain in the arm, calf, back of the knee, thigh, or groin. Redness and swelling in the arm, leg, or groin. Watch closely for changes in your health, and be sure to contact your doctor if: The cast is breaking apart. You are not getting better as expected. Where can you learn more? Go to https://www.Dermira.net/[employer]eal[employer]ambikes [place] or log into your [employer] account at [email or web address] Enter P140 in the search box to learn more about Wearing a Plaster Cast: Care Instructions. Current as of: June 25, 2019 Content Version: 12.6 ?? [employer]. Care instructions adapted under license by [facility]. If you have questions about a medical condition or this instruction, always ask your healthcare professional. [employer] disclaims any warranty or liability for your use of this information. documented in this encounter Medications at Time of Discharge Medication Sig Dispensed Refills Start Date End Date acetaminophen (TYLENOL) Take 2 Tablets by 30 Tablet 1 03/17 500 mg tablet mouth every 6 hours. amLODIPine (NORVASC) 10 Take 10 mg by mouth 0 mg tabletIndications: daily. hypertension aspirin 325 mg tablet Take 1 Tablet by 60 Tablet 0 03/16/20 21 mouth 2 times daily. atorvastatin (LIPITOR) 80 Take 80 mg by mouth 0 mg tabletIndications: daily. hyperlipidemia Coenzyme Q10 (CO Q-10) Take 100 mg by 0 100 mg mouth daily. capsuleIndications: supplement docusate sodium (COLACE) Take 2 Capsules by 30 capsule 0 100 mg capsule mouth 2 times daily. multivit-min/folic/vit Take 1 Tablet by 0 K/lycop (MEN'S mouth daily. MULTIVITAMIN ORAL)Indications: supplement methocarbamoL (ROBAXIN) Take 2 Tablets by 30 Tablet 1 03/1603/31/2021 500 mg tablet mouth 4 times daily as needed for Pain or Muscle Spasms. oxyCODONE (ROXICODONE) 5 Take 1-2 Tablets by 14 Tablet 0 /14/2022 mg immediate release mouth every 4 hours tablet as needed for Pain. Daily Max: 60 mg oxyCODONE (ROXICODONE) 5 Take 1-2 Tablets by 14 Tablet 0 /14/2022 mg immediate release mouth every 4 hours tablet as needed for Pain (moderate (4-6/10) to severe (7-10/10) pain). Daily Max: 60 mg documented as of this encounter Ordered Prescriptions Prescription Sig Dispensed Refills Start Date End Date docusate sodium (COLACE) Take 2 Capsules by 30 capsule 0 100 mg capsule mouth 2 times daily. acetaminophen (TYLENOL) Take 2 Tablets by 30 Tablet 1 03/17 500 mg tablet mouth every 6 hours. aspirin 325 mg tablet Take 1 Tablet by 60 Tablet 0 03/16/20 21 mouth 2 times daily. oxyCODONE (ROXICODONE) 5 Take 1-2 Tablets by 14 Tablet 0 08/06/2021 mg immediate release mouth every 4 hours tablet as needed for Pain. Daily Max: 60 mg methocarbamoL (ROBAXIN) Take 2 Tablets by 30 Tablet 1 03/1603/31/2021 500 mg tablet mouth 4 times daily as needed for Pain or Muscle Spasms. oxyCODONE (ROXICODONE) 5 Take 1-2 Tablets by 14 Tablet 0 08/06/2021 mg immediate release mouth every 4 hours tablet as needed for Pain (moderate (4-6/10) to severe (7-10/10) pain). Daily Max: 60 mg documented in this encounter Discharge Disposition Disposition Code Departure Means Destination [place] [facility] documented in this encounter Progress Notes Laurie Royal OT - 03/17/2021 1220 EST [facility] Occupational Therapy Initial Evaluation Note Date of Service: 03/17/2021 SUBJECTIVE: Patient is currently having difficulty with: Walking Patient/Caregiver States: I'm going home today Patient and Caregiver Goals: go home to recover Subjective Information Reported by: Patient Pain Comments: no c/o pain during session OBJECTIVE: Patient Profile: Patient is a 65 y.o. male admitted on 03/16/2021 secondary to Tibia/fibula fracture. The patient lives at [address] [place] [id number] Hand Dominance: Right Social History: lives with s/o, active and independent at baseline Date of Illness / Injury: 03/16/21 Mechanism of Injury: tib/fib fx, s/p fixation Date of Surgery: 03/16/21 Support Person: Spouse Prior Level of Function: Prior Level of Function Comment: Independent Level of Assistance Throughout: Independent Basic Activities of Daily Living - General Level of Assistance Throughout: Independent Medical/Surgical History: Current: has Benign prostatic hyperplasia; Hyperlipidemia; Hypertension; Leg cramps; Metabolic syndrome; Obesity; Osteoarthrosis; Prediabetes; Seborrhea; Anaphylactic reaction to bee sting; Venous insufficiency; Toxic effect of venom of wasps, accidental (unintentional), initial encounter; and Tibia/fibula fracture on their problem list. Past: has a past medical history of Hypertension. has no past surgical history on file. Body Functions and Performance Skills Mental Functions: Arousal, Attention, and Cognition: No problems noted Sensory Functions: Vision History: No problems Neuromusculoskeletal and Movement Related Functions: Range of Motion: No problems noted Strength: No problems noted General Coordination: No problems noted Skin and Related Structure Functions: Skin General Assessment Skin and Related Structure Functions: No problems noted Areas of Occupation and Performance Skills Basic Activities of Daily Living: Additional Comments: Pt independent with upper body ADL and toileting, able to don/doff sock shoe onleft foot. Right sock and shoe NT due to splint Instrumental Activities of Daily Living: NT Informed Consent: The patient consented to the Occupational Therapy evaluation. The patient agrees to and understands the Occupational Therapy treatment plan and goals. Interventions Completed Today: Time: 1130 Total Treatment Time (minutes): 15 Timed Code Treatment Minutes: 0 Additional information may be available in the medical record. Patient/Family Education: Braces and Equipment: Equipment needs Medical Information/Signs and Symptoms: Activities of daily living compensatory strategies Mobility, Transfers, and Gait: Functional transfers Safety: Precautions/weight bearing Therapy Specific: Role of occupational therapy Patient/Family Education Comments: Gave vendor info for [employer] for bathroom Team Communication: Notified: Team By: Other Notification Comments: rounds note for discharge recommendations ASSESSMENT: Occupational therapy evaluation reveals the following impairments: standing tolerance These impairments are contributing to the following activity limitations and participation restrictions: functional mobility, self-care, independent living skills Pt participated well in eval, demonstrated good adherence to weight bearing precautions and SBA to modified independent for functional transfers. Pt has no concerns re: home discharge today and appreciative of recommendations for DME for bathroomsuch as TSR and tub seat The patient does not require further occupational therapy services: at this time and will be discharged home with DME recommendations Therapy services in this setting have been discontinued secondary to: the patient has been or will be discharged from the hospital Short Term Goals:NA Fire Investigation Manager Goals:NA PLAN: Discontinue occupational therapy services Single visit eval only. Pt discharging home today Recommended Discharge Destination: Home with family support/supervision Recommended Discharge Destination Comments: Pt planning to follow up with orthopedic services Equipment Recommended: Dressing/Grooming/Feeding Equipment, Bathing Equipment Bathing Equipment: Raised toilet seat with handles, Tub bench Equipment Recommended Comments: Gave [employer] contact info LAURIE ROYAL OT, 03/17/2021, 14:31 Brad Hendrix MD - 03/17/2021 1141 EST Orthopaedic Surgery Progress Note Diagnosis: s/p IMN for right tibia fracture on 03/16 Interim/Subjective: Pain controlled this morning, working on mobilization with PT Objective: BP 133/71 (BP Cuff Location: Left arm, BP Patient Position: Sitting) Temp 36.4 ??C (97.5 ??F) (Oral) Resp 16 Ht 177.8 cm (70) Wt 99.8 kg (220 lb) SpO2 93% BMI 31.57 kg/m?? Intake/Output Summary (Last 24 hours) at 03/17/2021 1141 Last data filed at 03/17/2021 0100 Gross per 24 hour Intake 2110 ml Output 100 ml Net 2010 ml Gen: Awake alert appropriate, no acute distress Right lower extremity- Splint in place, clean dry and intact Compartments soft Light touch sensation intact in superficial peroneal, deep peroneal and tibial distributions. Firing toe and flexion and extension with good strength. Capillary refill intact and <2 seconds Foot warm and well-perfused. No results found for: GENCBC, BASIC, CRP Imaging: tib/fib xrays demonstrate good alignment with no apparent complications. Assessment/Plan: is a 65 y.o. male who is presently admitted for right tib/fib fracture. He is doing well. Working on mobilization, pain control and hemodynamic monitoring. Interim issues include None new. Weight bearing- partial weight bearing right extremity Dressing/cast/splint- To remain clean and dry until follow-up Ice and elevation Antibiotics- Ancef DVT prophylaxis- Aspirin at discharge Sutures- Will be removed at fu Consults- Physical therapy, occupational therapy, care management Discharge planning- Likely home per PT/OT Follow-up- Two weeks BRAD HENDRIX MD Orthopaedics and Sports Medicine [facility] [address] [place], [place] Nicole Mcintyre - 03/17/2021 1137 EST C.M. NOTE: The Pt is being discharged home today with no additional services in place. Physical Therapist, Cole, provided the Pt with a wheeled walker from the Care Management supply. The Pt's face sheet, [employer] paper work., script, and clinical was faxed to [employer]. Cole shared that the Pt will not need Home Health or Outpatient PT therapy until after his 6-8 week partial weigh baringis adjusted. The Pt is aware of the following information. He verbalized an understanding of the discharge plan, and expressed no concerns with the current plan. The Pt plans to be transported home by his daughter at discharge. Laurence Shipman, PT - 03/17/2021 1028 EST [facility] Physical Therapy Initial Evaluation Note [facility] Physical Therapy Initial Evaluation Note Date of Service: 03/17/2021 Precautions: PWB R LE 6-8weeks R LE is Splinted. Patient to wear a Post-op shoe for gait. SUBJECTIVE: I feel a little pain in my R leg. I ill take it safely. Medical/Surgical History: Current: Patient Active Problem List Diagnosis ??? Benign prostatic hyperplasia ??? Hyperlipidemia ??? Hypertension ??? Leg cramps ??? Metabolic syndrome ??? Obesity ??? Osteoarthrosis ??? Prediabetes ??? Seborrhea ??? Anaphylactic reaction to bee sting ??? Venous insufficiency ??? Toxic effect of venom of wasps, accidental (unintentional), initial encounter ??? Tibia/fibula fracture Past: Past Medical History: Diagnosis Date ??? Hypertension History reviewed. No pertinent surgical history. HPI: Slip and fall with distal R Tib/Fib fx, ORIF Prior level of function: Was I Home Environment: Lives in one story home with . 4step entry. OBJECTIVE: Patient Profile: Patient is a 65 y.o. male admitted on 03/16/2021 secondary to Tibia/fibula fractureThe patient lives at [address] [facility] [address] Arousal, Attention, and Cognition: Orientation: Oriented to person, place, and time Cardiopulmonary: Patient vital signs stable per flowsheets and patient not symptomatic during examination Integumentary/Anthropometric: Palpation/Observation: No problem noted Posture: No problem noted Range of Motion: Active Range of Motion: Within normal limits except as noted R LE ankle deferred Muscle Performance: Strength: Formal resistive muscle testing was not performed due to ability to I manage mobility, gait with whe walker and safe PWB of R LE. Sensation, Reflexes, and Nerve Integrity: Light Touch Sensation: Upper Quarter:Intact C2-T1 Lower Quarter: Intact for lower extremities Neuromotor Function/Development: No problems noted Balance: No loss of balance observed throughout physical therapy session Bed Mobility and Transfers: supine to sit: I Sit to/from stand: I Car transfers into passenger seat: I Gait and Stairs: Assistive device/distance/assist/deviation: Whe walker introduced for PWB R LE with S advancing to Ion level. Stairs: assist needed/number of steps: Able to manage with NWB using 2rail support or with light WB on R LE for 5teps I of assist. Informed Consent: The patient consented to the physical therapy evaluation. The patient agrees to and understands the physical therapy treatment plan and goals. Interventions Completed Today: There act: supine to/from sit cuing for self manage R LE and I after teaching. Sit to/from stand instructions for PWB R LE and forward placement when lowering to sit. I after cues. Car transfer teaching also I managed. Gait train: whe walker use for gait of 75ft with cues for PWB and UE support advanced from CG to I. Stair training: Up/down 5steps with 2rail support. CG then advance to I. Additional information may be available in the medical record. Patient/Family Education: PWB restrictions and elevation safety for R LE. ASSESSMENT: Physical Therapy Diagnosis: Abn of gait after R LE ORIF for tib/fib fxs. Physical Therapy Assessment: Patient suffered a traumatic injury after fall near [place]. He sustained a distal Tib/Fib fx and needed rodding repair. He was able to demonstrate safe mobility and gait. He can transition to home. No therapy follow up is necessary until WB is advanced. Patient provided with Post-op shoe and whe walker. Short-Term Goals: N/A Long-Term Goals: N/A PLAN: Discharge home with whe walker. Discharge Recommendations: Home with family support. No follow up until WB precautions advanced. Team Communication: Notified physician, nursing, care management and Liaison regarding home transition. LAURENCE SHIPMAN PT 03/17/2021 10:29 Date of Service: 03/17/2021 documented in this encounter H&P Notes Tahir Haynes MD - 03/16/20211952 EST Orthopedic Admission H&P Admit Date: 03/16/2021 Date of Service: 03/16/2021 PCP: Lamine Benton Referring MD: No ref. provider found Chief Complaint: Right tib-fib fracture HPI: (include onset,location,quality,severity, duration, timing, associating symptoms) Patient is a 65 y.o. male who presents with patient presents to the emergency room after slipping daphnie piece of plywood outside his car and feeling multiple snaps and breaks in his right leg. He had severe pain instability noted in the leg inability to walk afterwards. Presenting to the emergency roomradiographs revealed a displaced tib-fib fracture fibula broken in 2 places. Patient past medical history noted for hypertension high cholesterol. Patient's past surgical history includes a right knee arthroscopy many years ago. Meds include atorvastatin amlodipine vitamin D and other vitamins. Allergies recently with bee stings. Review of systems negative. Family history parents dad with coronary artery disease. 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 [facility] Past Medical History: Diagnosis Date ??? Hypertension History reviewed. No pertinent surgical history. Social History Family History Social History Tobacco Use ??? Smoking status: Former Smoker Quit date: 03/16/1980 Years since quittin.0 ??? Smokeless tobacco: Never Used Substance Use Topics ??? Alcohol use: Not on file History reviewed. No pertinent family history. Medications (Not in a hospital admission) Allergies No Known Allergies Review of Systems Negative except as noted in history Objective/Physical Exam: VS: Patient Vitals for the past 8 hrs: BP Heart Rate Resp SpO2 03/16/211916 -- -- -- 95 % 03/16/211915 -- -- -- 95 % 03/16/211914 -- -- -- 97 % 03/16/211913 -- -- -- 98 % 03/16/211912 -- -- -- 97 % 03/16/211911 -- -- -- 96 % 03/16/211910 -- -- -- 97 % 03/16/211909 -- -- -- 93 % 03/16/211908 -- -- -- 95 % 03/16/211907 -- -- -- 96 % 03/16/211906 -- -- -- 96 % 03/16/211905 -- -- -- 96 % 03/16/211904 -- -- -- 97 % 03/16/211903 -- -- -- 95 % 03/16/211902 -- -- -- 94 % 03/16/211901 -- -- -- 96 % 03/16/211900 -- -- -- 96 % 03/16/211858 -- -- -- 97 % 03/16/211857 -- -- -- 95 % 03/16/211856 -- -- -- 96 % 03/16/211855 -- -- -- 95 % 03/16/211854 -- -- -- 96 % 03/16/211853 -- -- -- 96 % 03/16/211852 -- -- -- 93 % 03/16/211851 -- -- -- 95 % 03/16/211850 -- -- -- 96 % 03/16/211849 -- -- -- 95 % 03/16/211848 -- -- -- 92 % 03/16/211847 -- -- -- 95 % 03/16/211846 -- -- -- 98 % 03/16/211845 -- -- -- 98 % 03/16/211844 -- -- -- 98 % 03/16/211843 -- -- -- 98 % 03/16/211842 -- -- -- 98 % 03/16/211841 -- -- -- 97 % 03/16/211840 -- -- -- 99 % 03/16/211839 -- -- -- 94 % 03/16/211838 -- -- -- 91 % 03/16/211837 -- -- -- 98 % 03/16/211836 -- -- -- 97 % 03/16/211835 -- -- -- 98 % 03/16/211834 -- -- -- 98 % 03/16/211833 -- -- -- 97 % 03/16/211832 -- -- -- 99 % 03/16/211831 -- -- -- 98 % 03/16/211830 -- -- -- 98 % 03/16/211829 (!) / -- -- 98 % 03/16/211828 -- -- -- 97 % 03/16/211827 -- -- -- 96 % 03/16/211826 -- -- -- 97 % 03/16/211825 -- -- -- 97 % 03/16/211824 -- -- -- 98 % 03/16/211818 -- -- -- 98 % 03/16/211817 -- -- -- 98 % 03/16/211816 -- -- -- 99 % 03/16/211815 -- -- -- 98 % 03/16/211814 -- -- -- 98 % 03/16/211813 -- -- -- 96 % 03/16/211812 -- -- -- 97 % 03/16/211811 -- -- -- 98 % 03/16/211810 -- -- -- 98 % 03/16/211809 -- -- -- 98 % 03/16/211808 -- -- -- 99 % 03/16/211807 -- -- -- 98 % 03/16/211806 -- -- -- 97 % 03/16/211805 -- -- -- 96 % 03/16/211804 -- -- -- 97 % 03/16/211803 -- -- -- 98 % 03/16/211802 -- -- -- 98 % 03/16/211801 -- -- -- 98 % 03/16/211800 -- -- -- 98 % 03/16/21 1800 (!) 146/79 -- -- 97 % 03/16/211758 -- -- -- 97 % 03/16/211757 -- -- -- 90 % 03/16/211756 -- -- -- 96 % 03/16/211755 -- -- -- 94 % 03/16/211754 -- -- -- 93 % 03/16/211753 -- -- -- 95 % 03/16/211752 -- -- -- 96 % 03/16/211751 -- -- -- 96 % 03/16/211750 -- -- -- 95 % 03/16/211749 -- -- -- 96 % 03/16/211748 -- -- -- 97 % 03/16/211747 -- -- -- 97 % 03/16/211746 -- -- -- 97 % 03/16/21 174 -- -- -- 96 % 03/16/21 1745 -- -- -- 95 % 03/16/21 1744 -- -- -- 97 % 03/16/21 1743 -- -- -- 95 % 03/16/21 1742 -- -- -- 96 % 03/16/21 174 -- -- -- 98 % 03/16/21 1740 -- -- -- 97 % 03/16/21 173 -- -- -- 98 % 03/16/21 173 -- -- -- 97 % 03/16/21 173 -- -- -- 98 % 03/16/21 173 -- -- -- 98 % 03/16/21 173 -- -- -- 98 % 03/16/21 173 -- -- -- 96 % 03/16/21 173 -- -- -- 91 % 03/16/21 173 -- -- -- 93 % 03/16/21 173 -- -- -- 93 % 03/16/21 173 (!) 152/79 -- -- 98 % 03/16/21 172 -- -- -- 98 % 03/16/21 172 -- -- -- 98 % 03/16/21 172 -- -- -- 97 % 03/16/21 172 -- -- -- 97 % 03/16/21 172 -- -- -- 99 % 03/16/21 172 -- -- -- 98 % 03/16/21 172 -- -- -- 98 % 03/16/21 172 -- -- -- 97 % 03/16/21 172 -- -- -- 98 % 03/16/21 172 -- -- -- 98 % 03/16/21 171 -- -- -- 97 % 03/16/21 171 -- -- -- 96 % 03/16/21 171 -- -- -- 97 % 03/16/21 171 -- -- -- 96 % 03/16/21 171 -- -- -- 97 % 03/16/21 171 -- -- -- 97 % 03/16/21 171 -- -- -- 98 % 03/16/21 1712 -- -- -- 98 % 03/16/21 1711 -- -- -- 98 % 03/16/21 1710 -- -- -- 97 % 03/16/21 1709 -- -- -- 98 % 03/16/21 1708 -- -- -- 98 % 03/16/21 1707 -- -- -- 96 % 03/16/21 1706 -- -- -- 96 % 03/16/21 1705 -- -- -- 96 % 03/16/21 1704 -- -- -- 95 % 03/16/21 1703 -- -- -- 97 % 03/16/21 1702 -- -- -- 97 % 03/16/21 170 -- -- -- 96 % 03/16/21 1700 (!) 151/81 -- -- 98 % 03/16/21 165 -- -- -- 97 % 03/16/21 1658 -- -- -- 95 % 03/16/211656 -- -- -- 98 % 03/16/21 1656 -- -- -- 98 % 03/16/21 1655 -- -- -- 98 % 03/16/21 1654 -- -- -- 98 % 03/16/21 1653 -- -- -- 97 % 03/16/21 1652 -- -- -- 98 % 03/16/21 165 -- -- -- 98 % 03/16/21 1650 -- -- -- 98 % 03/16/21 1649 -- -- -- 98 % 03/16/21 1648 -- -- -- 98 % 03/16/21 1647 -- -- -- 98 % 03/16/21 1646 -- -- -- 98 % 03/16/21 1645 -- -- -- 98 % 03/16/21 1644 -- -- -- 98 % 03/16/21 1643 -- -- -- 98 % 03/16/21 1642 -- -- -- 97 % 03/16/21 1641 -- -- -- 97 % 11/22/21 1640 -- -- -- 98 % 03/16/21 1639 -- -- -- 98 % 03/16/21 1638 -- -- -- 98 % 03/16/21 1637 -- -- -- 97 % 03/16/21 1636 -- -- -- 98 % 03/16/21 1635 -- -- -- 98 % 03/16/21 1634 -- -- -- 97 % 03/16/21 1633 -- -- -- 97 % 03/16/21 1632 -- -- -- 97 % 03/16/21 1631 -- -- -- 98 % 03/16/21 1630 (!) 142/74 -- -- 97 % 03/16/21 1629 -- -- -- 98 % 03/16/21 1628 -- -- -- 98 % 03/16/21 1627 -- -- -- 99 % 03/16/21 1626 -- -- -- 99 % 03/16/21 1625 -- -- -- 99 % 03/16/21 1624 -- -- -- 99 % 03/16/21 1623 -- -- -- 98 % 03/16/21 1622 -- -- -- 98 % 03/16/21 1621 -- -- -- 99 % 03/16/21 1620 -- -- -- 99 % 03/16/21 1619 -- -- -- 98 % 03/16/21 1618 -- -- -- 99 % 03/16/21 1617 (!) 152/77 -- -- 98 % 03/16/21 1616 -- -- -- 98 % 03/16/21 1615 -- -- -- 98 % 03/16/21 1614 -- -- -- 98 % 03/16/21 1613 -- -- -- 97 % 03/16/21 1612 -- -- -- 99 % 03/16/21 1611 -- -- -- 99 % 03/16/21 1610 -- -- -- 99 % 03/16/21 1609 -- -- -- 98 % 03/16/21 1608 -- -- -- 98 % 03/16/21 1607 -- -- -- 99 % 03/16/21 1606 -- -- -- 98 % 03/16/21 1605 -- -- -- 98 % 03/16/21 1604 -- -- -- 98 % 03/16/21 1603 -- -- -- 97 % 03/16/21 1602 -- -- -- 97 % 03/16/21 1601 -- -- -- 97 % 03/16/21 1600 -- -- -- 95 % 03/16/21 1557 -- -- -- 94 % 03/16/21 1556 -- -- -- 99 % 03/16/21 1555 -- -- -- 97 % 03/16/21 1554 -- -- -- 98 % 03/16/21 1553 -- -- -- 98 % 03/16/21 1552 -- -- -- 97 % 03/16/21 1551 -- -- -- 97 % 03/16/21 1550 -- -- -- 97 % 03/16/21 1549 -- -- -- 96 % 03/16/21 1548 -- -- -- 96 % 03/16/21 1547 -- -- -- 95 % 03/16/21 1546 -- -- -- 94 % 03/16/21 1545 -- -- -- 94 % 03/16/21 1544 -- -- -- 94 % 03/16/21 1543 -- -- -- 95 % 03/16/21 1542 -- -- -- 96 % 03/16/21 1541 -- -- -- 95 % 03/16/21 1540 -- -- -- 97 % 03/16/21 1539 -- -- -- 96 % 03/16/21 1538 -- -- -- 97 % 03/16/21 1537 -- -- -- 97 % 03/16/21 1536 -- -- -- 96 % 03/16/21 1535 -- -- -- 97 % 03/16/21 1534 -- -- -- 97 % 03/16/21 1533 -- -- -- 96 % 03/16/21 1532 -- -- -- 96 % 03/16/21 1531 -- -- -- 94 % 03/16/21 1530 -- -- -- 94 % 03/16/21 1529 -- -- -- 94 % 03/16/21 1528 -- -- -- 95 % 03/16/21 1527 -- -- -- 95 % 03/16/21 1526 -- -- -- 97 % 03/16/21 1525 -- -- -- 97 % 03/16/21 1524 -- -- -- 97 % 03/16/21 1523 -- -- -- 97 % 03/16/21 1522 -- -- -- 94 % 03/16/21 1445 -- 76 BPM 16 99 % 03/16/21 1444 (!) 169/78 74 BPM 16 98 % Pain: Patient Vitals for the past 8 hrs: Numeric Pain Level (Scale 1-10) 03/16/21 1831 8 03/16/21 1626 3 03/16/21 1444 2 Weight: Patient Vitals for the past 24 hrs: Weight 03/16/21 1444 99.8 kg (220 lb) Body mass index is 31.57 kg/m??. Examination shows pleasant gentleman in mild distress. He has a benign HEENT his neck is supple Heart regular rate and rhythm. 2/6 systolic ejection murmur heard throughout the precordium. Lungs clear to auscultation. Abdomen soft and nontender Right leg with gross deformity compartments are soft he has intact sensation throughout the entire foot he does have significant venous stasis brawny skin discoloration over the anterior cedeno and medial calcaneal region that he notes occurred with a biopsy that required extensive healing with seaweed packing. Data Review: I have independently visualized the x-ray(s) and relevant imaging Labs: I have personally reviewed resulted labs Admission on 03/16/2021 Component Date Value Ref Range Status ??? Hold 03/16/2021 Hold Final ??? Hold 03/16/2021 Hold Final ??? WBC 03/16/2021 12.63* 4.00 - 10.40 K/cmm Final ??? RBC 03/16/2021 5.01 4.36 - 5.78 M/cmm Final ??? Hemoglobin 03/16/2021 14.7 13.8 - 17.3 gm/dL Final ??? HCT 03/16/2021 43.7 39.5 - 50.2 % Final ??? MCV 03/16/2021 87 81 - 95 fl Final ??? MCH 03/16/2021 29.3 27.6 - 33.0 pg Final ??? MCHC 03/16/2021 33.6 32.8 - 36.4 gm/dL Final ? ? RDW-CV 03/16/2021 13.2 <14.2 % Final ? ? RDW-SD 03/16/2021 41.9 <46.0 fl Final ??? PLT 03/16/2021 183 141 - 377 K/cmm Final ??? MPV 03/16/2021 10.7 9.5 - 12.7 fl Final ??? Neutrophils 03/16/2021 79.0 % Final ??? Lymphocytes 03/16/2021 10.1 % Final ??? Monocytes 03/16/2021 9.7 % Final ??? Eosinophils 03/16/2021 0.6 % Final ??? Basophils 03/16/2021 0.3 % Final ??? Immature Grans 03/16/2021 0.3 % Final ??? Absolute Neutrophils 03/16/2021 9.97* 2.20 - 8.85 K/cmm Final ??? Absolute Lymphocytes 03/16/2021 1.27 1.09 - 3.30 K/cmm Final ??? Absolute Monocytes 03/16/2021 1.23* 0.10 - 0.80 K/cmm Final ??? Absolute Eosinophils 03/16/2021 0.08 0.03 - 0.61 K/cmm Final ??? Absolute Basophils 03/16/2021 0.04 0.01 - 0.11 K/cmm Final ??? Absolute Immature Grans 03/16/2021 0.04 0.00 - 0.06 K/cmm Final ??? Type of Differential: 03/16/2021 Auto Final ??? Sodium 03/16/2021 138 136 - 145 mmol/L Final ??? Potassium 03/16/2021 4.0 3.5 - 5.0 mmol/L Final ??? Chloride 03/16/2021 104 96 - 110 mmol/L Final ??? CO2 Total 03/16/2021 28 22 - 32 mmol/L Final ??? Anion Gap 03/16/2021 6* 8 - 16 Final ??? Glucose 03/16/2021 98 70 - 100 mg/dL Final ??? Calcium 03/16/2021 8.8 8.5 - 10.5 mg/dL Final ??? BUN 03/16/2021 16 10 - 26 mg/dL Final ??? Creatinine 03/16/2021 0.82 0.66 - 1.25 mg/dL Final ? ? eGFR 03/16/2021 92 >60 mL/min/1.73m2 Final ??? ABO 03/16/2021 B Final ??? Rh Factor 03/16/2021 Positive Final ??? Antibody Screen 03/16/2021 Negative Final ??? Specimen Expires: 03/16/2021 03/19/2021 @ 23:59 Final ??? Performing Lab 03/16/2021 [facility] Lab Final ??? COVID-19 rt-PCR Result 03/16/2021 Negative Negative Final This test has not been FDA cleared or approved. This test has been authorized by FDA under an EUA for use by authorized laboratories. This test has been authorized only for detection of nucleic acid from 2019-nCoV, not for any other viruses or pathogens. This test is only authorized for the duration of the declaration that circumstances exist justifying the authorization of emergency use of in vitrodiagnostic tests for detection and/or diagnosis of 2019-nCoV under section 564(b)(1) of Act, 21 U.S.C ?? 360bbb-3(b) (1), unless the authorization is terminated or revoked sooner. Performed on the [employer] GeneXpert Instrument The 2019 novel coronavirus (SARS-CoV-2) target nucleic acids are not detected. Assessment/Problems/Plan: <principal problem not specified> X-rays reviewed he has a displaced tib-fib fracture closed without sign of compartment syndrome at this point risks and benefits of surgery casting and other treatments were discussed he wishes to get this fixed surgically as soon as possible. A short leg fiberglass cast was applied and bivalved as wewere not sure on operative timing. VTE Prophylaxis: SCD if appropriate Discharge Plan: Patient hopes to go home with his but notes that it is somewhat in the [place] and has a lot of stairs so we will see how he does with PT postoperatively. TAHIR HAYNES MD 03/16/2021 19:53 [id number] documented in this encounter OR Notes OR Surgeon - Brad Hendrix MD - 03/17/2021 0034 EST Quinn Daniel [id number] 1955 Orthopaedic Surgery Operative Note Pre-operative Diagnosis: Right tibia and fibula shaft fractures Post-operative Diagnosis: Same Surgery: Right Tibial Intramedullary Nail Surgeon: Myself, Brad Hendrix MD Assistants: KARSTEN Kaye Estimated Blood Loss: 100 mL Complications: None Apparent Implants: Synthes 11mm x330mm tibial nail, 4 distal interlocking screws and 5mm endcap Drains and Tubes: None Indications for Procedure: Mr. Daniel is a 65 y.o. male who slipped earlier today and sustained an injury to their right lower leg. They were seen in the Emergency room and found to have a right tib/fib fracture. A discussion was held with the patient about the nature of the problem and options for the treatment of it and after this risk benefit discussion, their informed consent was obtained for operative treatment of the leg with possibility of open vs. Closed reduction and nail vs. Plate fixation. Description of Procedure: Mr. Daniel was brought to the holding area, where their consent form was verified, site lexi was confirmed and history and physical updated. They were greeted by the anesthesia and nursing team and brought back to the operating room where they were positioned supine on the ope rating room table and their right leg was prepped out and draped in the usual sterile fashion using a pre-scrub with chlorohexadine and chloroprep. Once all the surgical drapes were in place, all members of the surgical time took a time out for safety, confirming the patient's identity as Quinn Daniel and the planned surgical site on their right extremity and the planned procedure as external fixator placement and other critical components ofthe time out. All members of the surgical team agreed to proceed and all safety concerns were addressed. They also received ancef for antibiotic prophylaxis. We first turned our attention to reduction of the fracture. Traction and plantarflexion and manipulation of the fracture in a closed manner with C-arm visualization was used initially. This did not yield a satisfactory reduction, so we opted to continue on with a percutaneous clamp fixation at the fracture site. Using c-arm to localize the site for this open incision, we then created a two skin incisions adjacent to the fracture site and with traction on the limb placed clamps across the fracture site to hold the fracture in a reduced position. Once we were satisfied with the reduction visually andon all views, we then turned our attention back to the placement of the nail. A midline pre-patellar incision was then created and we planned for a infrapatellar nailing technique. Once we had created this incision and we were on the anterior aspect of the tibia in the desired position in line with the lateral tibial spine, the guidewire was introduced in the desired position. Once we were happy with the guidewires, position, we used the starting reamer proximally. Once we hadcompleted this proximal reaming, we then placed a ball tip guide wire down the length of the tibia across the fracture site in a central position both proximal and distal to the fracture site. This wassunk to the level of the physeal scar. Once it was in place, we began reaming starting with an 8.5mmreamer and ultimately reaming up to a size 12.5mm reamer. We took care to ensure we were not enlarging the proximal entry point and that the fracture remained well reduced throughout the reaming process. Once we had completed the reaming process, we measured for length of the implant and opened our nailwhich was a 330mm x11mm nail. This was then loaded on the insertion guide and inserted into the tibia. Once it and the fracture were confirmed to be in good position, we removed the guidewire and proceeded to place proximal interlocking screws using the insertion guide. Once these were in place, we then used the perfect jackson technique to place distal interlocking screws. Once these were in place and we were satisfied with our fracture reduction and hardware placement on all views, we removed the targeting guide and placed a 5 mm endcap. Once all of our fixation was in place, I stressed the ankle under c-arm and it was stable so we decided not to fix the fibula. Additionally we obtained magnified views of the posterior malleolus to confirm there was no posterior malleolar fracture. Next, we turned our attention to skin closure. Wounds were thoroughly irrigated. 0 vicryls were usedon the deep layers at the knee, followed by 3-0 vicryl on the superficial subcutaneous layers, followed by 3-0 nylon on the skin incisions. Dressing consisting of xeroform, 4x4s, ABD and sterile webrilwere placed. The patient was then placed into a well-padded posterior slab splint with a U component. Once all of this was in place, the patient was awakened from anesthesia, brought out to the recoveryroom having tolerated the procedure well without any noted complications. All needle, sponge and instrument counts were correct at the conclusion of the procedure. BRAD HENDRIX MD Orthopaedics and Sports Medicine [facility] [address] [place], [place] documented in this encounter ED Notes Snehal Moore, - 03/16/2021 0041 EST Emergency Department Visit Assessment and ED Course Quinn Daniel is a 65 y.o. male who presents to the ED for right leg/ankle pain which started just prior to arrival. Right tibia/fibula x-ray shows Oblique overlapping slightly displaced mid/distal tibia fracture. 2. Fibula proximal shaft and distal neck fractures. The distal head of the fibula is displaced approximately 2 mm in the lateral direction. Gaudencio Perez ([facility]) evaluated patient. Patient placed in a cast. CBC shows a mildly elevated white blood cell count of 12.6 which is otherwise unremarkable. BMP is unremarkable. Covid is negative. [facility] Final diagnoses: None Disposition: No disposition on file Chief complaint: Right leg pain HPI Quinn Daniel is a 65 y.o. male who presents to the ED for right leg/ankle pain which started just prior to arrival. Patient reports he slipped on a piece of plywood and fell. Patient is unsure exactly how he fell but reports hearing a pop and then was unable to stand afterwards. Patient denies anyhead trauma or loss of consciousness. Patient denies any pain in his right knee or right hip. Patient was given ketamine, ofirmev, fentanyl, and Zofran by EMS. Patient denies any numbness or tingling in his right leg. History was provided by: Patient Patient's pertinent PMH, FH, SH were reviewed and edited as necessary. Review of Systems Constitutional: Negative for fever. HENT: Negative for sore throat. Eyes: Negative for redness. Respiratory: Negative for cough and shortness of breath. Cardiovascular: Negative for chest pain. Gastrointestinal: Negative for abdominal pain, nausea and vomiting. Genitourinary: Negative. Musculoskeletal: Positive for falls. Right lower extremity pain Skin: Negative for rash. Neurological: Negative for loss of consciousness and headaches. Physical Exam BP (!) 169/78 (BP Cuff Location: Left arm) Resp 16 Ht 177.8 cm (70) Wt 99.8 kg (220 lb) SpO2 99% BMI 31.57 kg/m?? A medical screening exam was performed. Physical Exam Vitals and nursing note reviewed. Constitutional: General: He is not in acute distress. Appearance: He is well-developed and well-nourished. HENT: Right Ear: External ear normal. Left Ear: External ear normal. Nose: No nasal discharge. Mouth/Throat: Mouth: Mucous membranes are moist. Eyes: Conjunctiva/sclera: Conjunctivae normal. Cardiovascular: Rate and Rhythm: Normal rate and regular rhythm. Pulmonary: Effort: Pulmonary effort is normal. No respiratory distress. Abdominal: Palpations: Abdomen is soft. Tenderness: There is no abdominal tenderness. Musculoskeletal: Cervical back: Normal range of motion and neck supple. Comments: Decreased ROM right ankle and knee secondary to pain. Tenderness to palpation of Right mid cedeno. Neurovascular intact. Skin: General: Skin is warm and dry. Neurological: General: No focal deficit present. Mental Status: He is alert and oriented to person, place, and time. Psychiatric: Mood and Affect: Mood and affect normal. Imaging obtained was reviewed and independently interpreted. Laboratory results independently reviewed. Procedures Procedures Jon Tse RN - 03/16/2021 6388 EST Pt arrives with RLL deformity and crepitus above ankle following a fall while attempting to enter his vehicle at home. Pt denies head strike or LOC. Pt states he slipped while getting in his car. Pt is not anticoagulated and denies health Hx except for HTN. VSS. NAD. Pain 3/10 to RLL. Orquidea Castro, [place] - 03/16/2021 1442 EST Pt arrives via EMS due to right ankle injury. Slipped on plywood. [place] a snap and then the right foot looked floppy. Pain 2/10. Received ketamine prior to arrival. documented in this encounter Miscellaneous Notes Plan of Care - Nicole Mcintyre - 03/17/2021 0887 EST Initial Case Management/Social Work Assessment and Discharge Plan/Readmission Risk Assessment REASON FOR ADMISSION: Tibia/fibula fracture Patient understands reason for admission: (P) Yes PATIENT INFO VERIFIED: (P) PCP, Contact Info, Address Type of housing (single family, condo, apartment, chcf, single room occupancy, [facility] funded hotel room, group half-way) - Single family Who does the patient live with? , Kristan Does the patient have access to their own bedroom/bathroom/kitchen - or is it shared with others? yes Name of housing complex (ex [facility], [facility], etc)- n/a Housing Authority/Managing Organization - n/a Community Care Providers (human services case manager, [facility] nurse, etc) name and contact information- n/a LIVING ARRANGEMENTS AND ACCESSIBILITY ISSUES: Living Arrangements: (P) Spouse / significant other Levels: (P) 2 Stairs to enter: (P) 3 Handicap access: (P) None Bathroom located on bedroom level?: (P) Yes What in home social supports are available to the patient? (P) Family member(s) Is 24/7 care available? (P) Yes ADVANCED DIRECTIVES, POA &/or COLST IN PLACE: Healthcare Directive: No, patient does not have advance directive for healthcare treatment Information Provided on Healthcare Directives: Other (Comment) (Pt is not ready to complete, needs to consult with his ) Information on Healthcare Directives Requested: No DIRECTIVES FOR FINANCES: Directive For Finances: No TRANSPORTATION: Transportation: (P) Family Transportation Additional Details: (P) Quinn will have his dgtr or son-in-law bring him home Patient expects to be discharged to: (P) home CULTURAL, SABIANIST and/or LANGUAGE factors affecting health care/discharge planning: Spiritual/Cultural Requests: None Language/Literacy Needs Do you need us to provide any communication aids or devices?: No Insurance Information: Medical Insurance: Yes Type of insurance: Medicare Medicare type: A Referred to patient financial services: No Nutrition: DISCHARGE RISK ASSESSMENT: (P) History of falls Total # selected above: (P) Score of 1 - 2: This patient is at LOW RISK for re-hospitalization Tentative plan to address the risk of re-hospitalization for those at HIGH MODERATE RISK: RAPT TOOL: Patient expects to be discharged to: (P) home SBIRT: FUNCTIONAL STATUS: Activities patient requires assistance: (P) Other (Comment) (PT to evaluate pt s/p tib/fib fx) Assistive Device: (P) None COMMUNITY RESOURCES/SUPPORTS: Primary Care Provider: Lamine Benton PCP Verified: Specialists: (P) None Type of Home Health Services: (P) None DME Provider: Pharmacy: [id number] - [place], [place] - [address] [facility] [address] [place] [address] [facility] [id number] Home Health: Other: POST HOSPITAL TRANSITION PLAN: Pt was admitted on 03/16 d/t tib/fib fx. Pt is A&Ox3. He has an active PCP in [place]. Pt lives in a 2 story home with his . He has 3 stairs to enter the home. Pt's dgDelicia carreon will be helping with transportation. Pt does not want home health services and would prefer to travel to outpatient PT in [place]. He currently has no assistive devices for ADL's. Quinn is able to stay on the main level of his home. No lifeline, MOW, or case management. Nicole Mcintyre 03/17/2021 8:26 Plan of Care - Nicole Gamino RN - 03/17/2021 0236 EST Problem: Resident experiences pain/discomfort Goal: Resident will maintain an acceptable level of pain Description: INTERVENTIONS 1. Administer pain medication as ordered 2. Offer non-pharmacological pain management interventions Outcome: Ongoing Data: POD #1 of tibia fracture repair. Patient reporting 0/10 pain at this time. Spinal given in OR. Action: Ice to site. Response: Will continue to assess for pain. Nicole Gamino RN 03/17/2021 2:37 Patient admitted to 222 in no distress s/p tibia fracture repair. Denies pain at this time. Right leg with juju cast and juju bandage, c/d/i. + pulses. Unable to wiggle toes on left leg at this time. Tolerating water. Declined anything to eat. Able to roll side to side in bed. Ice to site. Brief Op Note - Brad Hendrix MD - 03/17/2021 0032 EST Date: 03/16/2021 - 03/17/2021 Location: [facility] [place] Name: Quinn Daniel, : 1955, Diagnosis Pre-Op Diagnosis Codes: * Tibia/fibula fracture [S82.209A, S82.409A] Post-op Diagnosis * Tibia/fibula fracture [S82.209A, S82.409A] Procedures TREATMENT, FRACTURE, TIBIA, SHAFT, BY INTRAMEDULLARY IMPLANT [id number] - MN TREAT TIBIAL SHAFT FX, INTRAMED IMPLANT Surgeons * Brad Hendrix MD - Primary * Eduardo Perez PA-C - Assisting Procedure Summary Anesthesia: * No anesthesia type entered * ASA: III Estimated Blood Loss: 100 mL LDAs: Peripheral IV 03/16/21 1450 Distal;Right Upper Arm;Antecubital (Active) Wound 03/16/21 (Active) Implants Type Name Action Serial No. Tibial nail-ex w/prox bend 11mm x 330 mm Implanted 4 interlocking screws, 5mm endcap Staff: Human Capital Consultant: Sera Jain RN Flight Test Shop Mechanic: Justa Feliciano; Bonifacio Sanchez Scrub Person: Donna Hernández RN Indications: Quinn Daniel is an 65 y.o. male who is having surgery for Tibia/fibula fracture [S82.209A, S82.409A] Findings: Good alignment and fixation obtained. Ankle stable to stress view after tibial fixation. Complications: None; patient tolerated the procedure well. Disposition: PACU - hemodynamically stable. Condition: stable Specimens Collected: No specimens collected during this procedure. Attending Attestation: I was present and scrubbed for the entire procedure BRAD HENDRIX MD Orthopaedics and Sports Medicine [facility] [address] [place], [place] documented in this encounter Plan of Treatment Not on filedocumented as of this encounter Procedures Procedure Name Priority Date/Time Associated Comments Diagnosis ECG REPORT - SCANNED 03/24/2021 8:04 EST COMPLETE BLOOD COUNT Routine 03/17/2021 6:45 Resu lts for this EST procedure are i n the results section. BASIC METABOLIC PANEL Routine 03/17/2021 6:44 Res ults for this (BMP) EST procedure are i n the results section. XR TIBIA FIBULA RIGHT 2 STAT 03/17/2021 4:13 R esults for this VIEWS EST procedure are i n the results section. FL C-ARM 0-1 HOUR STAT 03/17/2021 0:08 Results for this EST procedure are i n the results section. TREATMENT, FRACTURE, 03/16/2021 21:46 Tibia/fibula TIBIA, SHAFT, BY EST fracture INTRAMEDULLARY IMPLANT XR TIBIA FIBULA RIGHT 2 STAT 03/16/2021 20:13 Results for this VIEWS EST procedure are i n the results section. ZZCOVID-19 TESTING Routine 03/16/2021 16:15 Resul ts for this ([facility], [facility]) EST procedure are in the results section. COVID-19 [facility] (TESTING Today 03/16/2021 16:15 R esults for this ONLY) EST procedure are i n the results section. HOLD GREEN TOP Routine 03/16/2021 16:15 Results f or this EST procedure are i n the results section. COMPLETE BLOOD COUNT STAT 03/16/2021 16:15 Res ults for this AND DIFFERENTIAL EST procedure a re in the results section. TYPE AND SCREEN STAT 03/16/2021 16:15 Results for this EST procedure are i n the results section. BASIC METABOLIC PANEL STAT 03/16/2021 16:15 Re sults for this (BMP) EST procedure are i n the results section. XR TIBIA FIBULA RIGHT 2 STAT 03/16/2021 15:34 Results for this VIEWS EST procedure are i n the results section. XR ANKLE RIGHT 3 OR STAT 03/16/2021 15:33 Resu lts for this MORE VIEWS EST procedure are i n the results section. HOLD SST Routine 03/16/2021 14:36 Results for this EST procedure are i n the results section. HOLD LAVENDER TOP Routine 03/16/2021 14:36 EST EXTRA BLOOD DRAW Routine 03/16/2021 14:36 Results for this (RAINBOW) EST procedure are i n the results section. documented in this encounter Results ECG REPORT - SCANNED (03/24/2021 8:04 EST) Specimen (Source) Anatomical Collection Method Collection Time Re ceived Time Location / / Volume Laterality 03/24/2021 8:04 EST Narrative This result has an attachment that is no t available. Scan 2 Occupational Health Specialist PROCEDURE/MINOR SURGICAL ORD ERABLES (ABNORMAL) COMPLETE BLOOD COUNT (03/17/2021 6:45 EST) P athologist Signature WBC 10.42 (H) 4.00 - 03/17/2021 [facility] 10.40 7:17 [facility] K/cmm [facility] RBC 4.53 4.36 - 03/17/2021 [facility] 5.78 M/cmm 7:17 [facility] Hemoglobin 13.3 (L) 13.8 - 03/17/2021 [facility] 17.3 gm/dL 7:17 [facility] HCT 39.9 39.5 - 03/17/2021 [facility] 50.2 % 7:17 [facility] MCV 88 81 - 95 fl 03/17/2021 [facility] 7:17 [facility] MCH 29.4 27.6 - 03/17/2021 [facility] 33.0 pg 7:17 [facility] MCHC 33.3 32.8 - 03/17/2021 [facility] 36.4 gm/dL 7:17 [facility] RDW-CV 13.5 <14.2 % 03/17/2021 [facility] 7:17 [facility] RDW-SD 43.6 <46.0 fl 03/17/2021 [facility] 7:17 [facility] PLT 161 141 - 377 03/17/2021 [facility] K/cmm 7:17 [facility] MPV 10.9 9.5 - 12.7 03/17/2021 [facility] fl 7:17 [facility] Specimen Anatomical Collection Method / Collection Time Recei jesus Time (Source) Location / Volume Laterality Blood VENOUS BLOOD / Venipuncture / 03/17/2021 6:45 03/17/20 6:54 Unknown Unknown EST EST Brad Hendrix MD HEMATOLOGY & PF4 ORDERABLES Performing Organization Address City/State/ZIP Code Phon e Number [facility] [address] [place] [address] (ABNORMAL) BASIC METABOLIC PANEL (BMP) (03/17/2021 6:44 EST) P athologist Signature Sodium 136 136 - 145 03/17/2021 [facility] mmol/L 7:36 [facility] Potassium 4.1 3.5 - 5.0 03/17/2021 [facility] mmol/L 7:36 [facility] Chloride 102 96 - 110 03/17/2021 [facility] mmol/L 7:36 [facility] CO2 Total 28 22 - 32 03/17/2021 [facility] mmol/L 7:36 [facility] Anion Gap 6 (L) 8 - 16 03/17/2021 [facility] 7:36 [facility] Glucose 114 (H) 70 - 100 03/17/2021 [facility] mg/dL 7:36 [facility] Calcium 8.6 8.5 - 10.5 03/17/2021 [facility] mg/dL 7:36 [facility] BUN 14 10 - 26 03/17/2021 [facility] mg/dL 7:36 [facility] Creatinine 0.67 0.66 - 1.25 03/17/2021 [facility] mg/dL 7:36 EST [facility] eGFR 99 >60 03/17/2021 [facility] mL/min/1.73 7:[address] LAB Specimen Anatomical Collection Method / Collection Time Recei jesus Time (Source) Location / Volume Laterality Blood VENOUS BLOOD / Venipuncture / 03/17/2021 6:44 03/17/20 6:54 Unknown Unknown EST EST Brad Hendrix MD CHEMISTRY & BLOOD GAS ORDERA BLES Performing Organization Address City/State/ZIP Code Phon e Number [facility] [address] [place] [address] XR TIBIA FIBULA RIGHT 2 VIEWS (03/17/2021 4:13 EST) Anatomical Region Laterality Modality Lower Extremities Computed Radiography Specimen (Source) Anatomical Collection Method Collection Time Re ceived Time Location / / Volume Laterality 03/17/2021 4:00 EST Impressions 03/17/2021 5:36 EST 1. Intramedullary garima and screws transfixing a fracture of the distal tibia. 2. Fractures of the proximal and distal fibula. 3. Splint is seen in place, obscuring neftaly ny details. THIS DOCUMENT HAS BEEN ELECTRONICALLY SI GNED BY JON ZALDIVAR MD FOR ANY QUESTIONS OR CONCERNS REGARDING THIS REPORT PLEASE CALL [facility] AT [phone] Narrative 03/17/2021 5:36 EST PROCEDURE INFORMATION: Exam: XR Right Tibia and Fibula Exam date and time: 03/17/2021 4:00 AM Age: 65 years old Clinical indication: Screening exam; S/P imn; Prior surgery; Surgery date: Post-operative (0-2 days); Surgery type: RT tibial garima TECHNIQUE: Imaging protocol: XR Right tibia and fib re. Views: 2 views. COMPARISON: CR XR TIBIA FIBULA RIGHT 2 VIEWS 021 7:42 PM FINDINGS: Limitations: Splint is seen in place, ob scuring bony details. Bones/joints: Intramedullary garima and scr ews are seen in the tibia there is an oblique fracture defor mity of the distal tibial shaft with adequate anatomical al ignment. Slightly displaced fracture of the proximal fibul a is demonstrated. Nondisplaced fracture of the distal fibu la is partially obscured by the splint. Soft tissues: Normal. Procedure Note Jon Zaldivar MD - 1 PROCEDURE INFORMATION: Exam: XR Right Tibia and Fibula Exam date and time: 03/17/2021 4:00 AM Age: 65 years old Clinical indication: Screening exam; S/P imn; Prior surgery; Surgery date: Post-operative (0-2 days); Surgery type: RT tibial garima TECHNIQUE: Imaging protocol: XR Right tibia and fib re. Views: 2 views. COMPARISON: CR XR TIBIA FIBULA RIGHT 2 VIEWS 021 7:42 PM FINDINGS: Limitations: Splint is seen in place, ob scuring bony details. Bones/joints: Intramedullary garima and scr ews are seen in the tibia there is an oblique fracture defor mity of the distal tibial shaft with adequate anatomical al ignment. Slightly displaced fracture of the proximal fibul a is demonstrated. Nondisplaced fracture of the distal fibu la is partially obscured by the splint. Soft tissues: Normal. IMPRESSION 1. Intramedullary garima and screws transfi chauncey a fracture of the distal tibia. 2. Fractures of the proximal and distal fibula. 3. Splint is seen in place, obscuring neftaly ny details. THIS DOCUMENT HAS BEEN ELECTRONICALLY SI GNED BY JON ZALDIVAR MD FOR ANY QUESTIONS OR CONCERNS REGARDING THIS REPORT PLEASE CALL [facility] AT [phone] Brad Hendrix MD IMG DIAGNOSTIC IMAGING ORDER [place] FL C-ARM 0-1 HOUR (03/17/2021 0:08 EST) Specimen (Source) Anatomical Location Collection Method / Collectio n Time Received Time / Laterality Volume Narrative 03/17/2021 0:09 EST This is a non-reportable exam. Brad CHAVIRAG OTHER IMAGING ORDERABLES XR TIBIA FIBULA RIGHT 2 VIEWS (03/16/2021 20:13 EST) Anatomical Region Laterality Modality Lower Extremities Computed Radiography Specimen (Source) Anatomical Collection Method Collection Time Re ceived Time Location / / Volume Laterality 03/16/2021 19:40 EST Impressions 03/16/2021 21:21 EST Casted fractures of the fibula and tibia as described. THIS DOCUMENT HAS BEEN ELECTRONICALLY SI GNED BY COLTON PATEL MD FOR ANY QUESTIONS OR CONCERNS REGARDING THIS REPORT PLEASE CALL [facility] AT [phone] Narrative 03/16/2021 21:21 EST PROCEDURE INFORMATION: Exam: XR Right Tibia and Fibula Exam date and time: 03/16/2021 7:40 PM Age: 65 years old Clinical indication: Pain; Other: S/P ca sting TECHNIQUE: Imaging protocol: XR Right tibia and fib re. Views: 2 views. COMPARISON: CR XR TIBIA FIBULA RIGHT 2 VIEWS 021 2:57 PM FINDINGS: Since the previous exam, there has been placement of a fiberglass cast across the comminuted fr acture of the proximal fibula and the spiral fracture of the di stal tibia. There is anterior angulation of the tibial fractu re There is also a fracture involving the distal fibula. Procedure Note Colton Patel MD - 03/16/2021F ormatting of this note might be different from the original. PROCEDURE INFORMATION: Exam: XR Right Tibia and Fibula Exam date and time: 03/16/2021 7:40 PM Age: 65 years old Clinical indication: Pain; Other: S/P ca sting TECHNIQUE: Imaging protocol: XR Right tibia and fib re. Views: 2 views. COMPARISON: CR XR TIBIA FIBULA RIGHT 2 VIEWS 021 2:57 PM FINDINGS: Since the previous exam, there has been placement of a fiberglass cast across the comminuted fr acture of the proximal fibula and the spiral fracture of the di stal tibia. There is anterior angulation of the tibial fractu re There is also a fracture involving the distal fibula. IMPRESSION Casted fractures of the fibula and tibia as described. THIS DOCUMENT HAS BEEN ELECTRONICALLY SI GNED BY COLTON PATEL MD FOR ANY QUESTIONS OR CONCERNS REGARDING THIS REPORT PLEASE CALL [facility] AT [phone] Snehal Moore DO IMG DIAGNOSTIC IMAGING ORDER [place] COVID-19 [facility] CV CVPH [facility] (TESTING ONLY) (03/16/2021 16:15 EST) athologist Signature COVID-19 Negative Negative 03/16/2021 [facility] rt-PCR Result 17:31 EST [facility] Comment: This test has not been FDA cleared or ap proved. This test has been authorized by FDA under an EUA for use by authorized laboratories. This test has been authorized only for detection of nucleic acid fro m 2019-nCoV, not for any other viruses o r pathogens. This test is only authorized for the duration of the declaration that circumstances exist justifying the authorization of emergency use of in vitro d iagnostic tests for detection and/or bee gnosis of 2019-nCoV under section 564(b)(1) of Act, 21 U.S.C ?? 360bbb-3(b) (1), unless the authorization is terminated or revoked sooner. Performed on the [employer] Gene[employer]pert Instr ument The 2019 novel coronavirus (SARS-CoV-2) target nucleic acids are not detected. Specimen Anatomical Location Collection Method Collection Time Received Time (Source) / Laterality / Volume Swab ENTIRE NASOPHARYNX Swab / Unknown 03/16/2021 16:15 / Unknown EST 16:21 EST Snehal Moore DO MICROBIOLOGY - GENERAL ORDER [place] Performing Organization Address City/State/ZIP Code Phon e Number [facility] [address] [place] [address] COVID-19 TESTING ([facility], [facility], [place]) (03/16/2021 16:15 EST) [facility] Environmental Method Time Signature Performing Lab [facility] 03/16/2021 [facility] 16:32 EST [facility] Specimen Anatomical Location Collection Method Collection Time Received Time (Source) / Laterality / Volume Swab ENTIRE NASOPHARYNX Swab / Unknown 03/16/2021 16:15 / Unknown EST 16:21 EST Snehal Moore DO MICROBIOLOGY - GENERAL ORDER [place]ER[place] Performing Organization Address City/[facility]/ZIP Code Phon e Number [facility] [address] [place] [phone] TYPE AND SCREEN (03/16/2021 16:15 EST) [facility] Environmental Method Time Signature ABO B 03/16/2021 [facility] 17:00 EST [place] [facility] Rh Factor Positive 03/16/2021 [facility] 17:00 EST [place] [facility] Antibody Negative 03/16/2021 [facility] Screen 17:00 EST [place] [facility] Specimen 03/19/2021 @ 03/16/2021 [place] Expires: 23:59 17:00 EST [place] [facility] Specimen Anatomical Collection Method / Collection Time Recei jesus Time (Source) Location / Volume Laterality Blood VENOUS BLOOD / Venipuncture / 03/16/2021 16:15 021 Unknown Unknown EST 16:32 EST Snehal Moore DO BLOOD BANK TESTS Performing Organization Address City/[facility]/ZIP Code Phon e Number [facility] [address] [place] [address] (ABNORMAL) BASIC METABOLIC PANEL (BMP) (03/16/2021 16:15 EST) athologist Signature Sodium 138 136 - 145 03/16/2021 [facility] mmol/L 16:48 [facility] Potassium 4.0 3.5 - 5.0 03/16/2021 [facility] mmol/L 16:48 [facility] Chloride 104 96 - 110 03/16/2021 [facility] mmol/L 16:48 [facility] CO2 Total 28 22 - 32 03/16/2021 [facility] mmol/L 16:48 [facility] Anion Gap 6 (L) 8 - 16 03/16/2021 [facility] 16:48 [facility] Glucose 98 70 - 100 03/16/2021 [facility] mg/dL 16:48 [facility] Calcium 8.8 8.5 - 10.5 03/16/2021 [facility] mg/dL 16:48 [facility] BUN 16 10 - 26 03/16/2021 [facility] mg/dL 16:48 [facility] Creatinine 0.82 0.66 - 1.25 03/16/2021 [facility] mg/dL 16:48 [facility] eGFR 92 >60 03/16/2021 [facility] mL/min/1.73 16:48 [facility] m2 Specimen Anatomical Collection Method / Collection Time Recei jesus Time (Source) Location / Volume Laterality Blood VENOUS BLOOD / Venipuncture / 03/16/2021 16:15 021 Unknown Unknown EST 16:20 EST Snehal Moore DO CHEMISTRY & BLOOD GAS ORDERA BLES Performing Organization Address City/[facility]/ZIP Code Phon e Number [facility] [address] [place] [address] (ABNORMAL) COMPLETE BLOOD COUNT AND DIFFERENTIAL (03/16/2021 16:15 EST) [facility] Method Time Signature WBC 12.63 (H) 4.00 - 03/16/2021 [facility] 10.40 16:27 [facility] K/cmm CENTER LAB RBC 5.01 4.36 - 03/16/2021 [facility] 5.78 16:27 [facility] M/m [place] [facility] Hemoglobin 14.7 13.8 - 03/16/2021 [facility] 17.3 16:27 [facility] gm/dL [place] [facility] HCT 43.7 39.5 - 03/16/2021 [facility] 50.2 % 16:27 [facility] MCV 87 81 - 95 03/16/2021 [facility] fl 16:27 [facility] MCH 29.3 27.6 - 03/16/2021 [facility] 33.0 pg 16:27 [facility] MCHC 33.6 32.8 - 03/16/2021 [facility] 36.4 16:27 [facility] gm/dL [place] [facility] RDW-CV 13.2 <14.2 % 03/16/2021 [facility] 16:27 [facility] RDW-SD 41.9 <46.0 fl 03/16/2021 [facility] 16:27 [facility] PLT 183 141 - 377 03/16/2021 [place] K/m 16:27 [facility] MPV 10.7 9.5 - 03/16/2021 [facility] 12.7 fl 16:27 [facility] Neutrophils 79.0 % 03/16/2021 [facility] 16:27 [facility] Lymphocytes 10.1 % 03/16/2021 [facility] 16:27 [facility] Monocytes 9.7 % 03/16/2021 [facility] 16:27 [facility] Eosinophils 0.6 % 03/16/2021 [facility] 16:27 [facility] Basophils 0.3 % 03/16/2021 [facility] 16:27 [facility] Immature Grans 0.3 % 03/16/2021 [facility] 16:27 EST [facility] Absolute 9.97 (H) 2.20 - 03/16/2021 [facility] Neutrophils 8.85 16:27 [facility] K/[facility] CENTER LAB Absolute 1.27 1.09 - 03/16/2021 [facility] Lymphocytes 3.30 16:27 [facility] K/[facility] CENTER LAB Absolute 1.23 (H) 0.10 - 03/16/2021 [facility] Monocytes 0.80 16:27 [facility] Absolute 0.08 0.03 - 03/16/2021 [facility] Eosinophils 0.61 16:27 [facility] K/[facility] CENTER LAB Absolute 0.04 0.01 - 03/16/2021 [facility] Basophils 0.11 16:27 [facility] CENTER LAB Absolute 0.04 0.00 - 03/16/2021 [facility] Immature Grans 0.06 16:27 [facility] LAB Type of Auto 03/16/2021 [facility] Differential: 16:27 [facility] Specimen Anatomical Collection Method / Collection Time Recei jesus Time (Source) Location / Volume Laterality Blood VENOUS BLOOD / Venipuncture / 03/16/2021 16:15 021 Unknown Unknown EST 16:20 EST Snehal Moore DO PACKAGES & DNA PROBE ORDERAB LES Performing Organization Address City/State/ZIP Code Phon e Number [facility] [address] [place] [address] HOLD GREEN TOP (03/16/2021 16:15 EST) P athologist Signature Hold Hold 03/16/2021 [facility] 17:30 EST [facility] Specimen Anatomical Collection Method / Collection Time Recei jesus Time (Source) Location / Volume Laterality Blood VENOUS BLOOD / Venipuncture / 03/16/2021 16:15 021 Unknown Unknown EST 16:20 EST Snehal Moore DO LAB INFO SERVICE AND SUPPORT & PHONE RESULT Performing Organization Address City/[facility] Phon e Number [facility] [address] [place] [address] XR TIBIA FIBULA RIGHT 2 VIEWS (03/16/2021 15:34 EST) Anatomical Region Laterality Modality Lower Extremities Computed Radiography Specimen (Source) Anatomical Collection Method Collection Time Re ceived Time Location / / Volume Laterality 03/16/2021 15:42 EST Impressions 03/16/2021 15:42 EST 1. Oblique overlapping slightly displaced mid/distal tibia fracture. 2. Fibula proximal shaft and distal neck fractures. The distal head of the fibula is displaced approximately 2 mm in the lateral direction. Narrative 03/16/2021 15:42 EST INDICATION: fall, pain TECHNIQUE: 3 views right ankle. 2 views tibia-fibula. COMPARISON: None. FINDINGS: Right lower leg: there is an oblique fra cture through the proximal shaft of the fibula. There is a oblique distal fibula neck fracture. There is a oblique overlapping mid/distal fibula fracture. The pro ximal shaft is displaced approximately 1 .5 cm medially relative to the more distal shaft. Right ankle: The oblique distal fibula n ibeth fractures seen extending to the margin of the ankle joint. The distal head of the fibula is displaced up to 2 mm in the lateral direction. The medial malleolus is well aligned. Procedure Note Amadou Mcfarland MD - 03/16/2021Formattin g of this note might be different from the original. INDICATION: fall, pain TECHNIQUE: 3 views right ankle. 2 views tibia-fibula. COMPARISON: None. FINDINGS: Right lower leg: there is an oblique fra cture through the proximal shaft of the fibula. There is a oblique distal fibula neck fracture. There is a oblique overlapping mid/distal fibula fracture. The proximal shaft is displaced approximately 1.5 cm medially relative to the more distal shaft. Right ankle: The oblique distal fibula n ibeth fractures seen extending to the margin of the ankle joint. The distal head of the fibula is displaced up to 2 mm in the lateral direction. The medial malleolus is well aligned. IMPRESSION 1. Oblique overlapping slightly displace d mid/distal tibia fracture. 2. Fibula proximal shaft and distal neck fractures. The distal head of the fibula is displaced approximately 2 mm in the lateral direction. Snehal Moore DO IMG DIAGNOSTIC IMAGING ORDER [place]ER[place] XR ANKLE RIGHT 3 OR MORE VIEWS (03/16/2021 15:33 EST) Anatomical Region Laterality Modality Lower Extremities, Ankle Right Computed Radiog nurys Specimen (Source) Anatomical Collection Method Collection Time Re ceived Time Location / / Volume Laterality 03/16/2021 15:42 EST Impressions 03/16/2021 15:42 EST 1. Oblique overlapping slightly displaced mid/distal tibia fracture. 2. Fibula proximal shaft and distal neck fractures. The distal head of the fibula is displaced approximately 2 mm in the lateral direction. Narrative 03/16/2021 15:42 EST INDICATION: fall, pain TECHNIQUE: 3 views right ankle. 2 views tibia-fibula. COMPARISON: None. FINDINGS: Right lower leg: there is an oblique fra cture through the proximal shaft of the fibula. There is a oblique distal fibula neck fracture. There is a oblique overlapping mid/distal fibula fracture. The pro ximal shaft is displaced approximately 1 .5 cm medially relative to the more distal shaft. Right ankle: The oblique distal fibula n ibeth fractures seen extending to the margin of the ankle joint. The distal head of the fibula is displaced up to 2 mm in the lateral direction. The medial malleolus is well aligned. Procedure Note Amadou Mcfarland MD - 03/16/2021Formattin g of this note might be different from the original. INDICATION: fall, pain TECHNIQUE: 3 views right ankle. 2 views tibia-fibula. COMPARISON: None. FINDINGS: Right lower leg: there is an oblique fra cture through the proximal shaft of the fibula. There is a oblique distal fibula neck fracture. There is a oblique overlapping mid/distal fibula fracture. The proximal shaft is displaced approximately 1.5 cm medially relative to the more distal shaft. Right ankle: The oblique distal fibula n ibeth fractures seen extending to the margin of the ankle joint. The distal head of the fibula is displaced up to 2 mm in the lateral direction. The medial malleolus is well aligned. IMPRESSION 1. Oblique overlapping slightly displace d mid/distal tibia fracture. 2. Fibula proximal shaft and distal neck fractures. The distal head of the fibula is displaced approximately 2 mm in the lateral direction. Snehal PARRA DIAGNOSTIC IMAGING ORDER [place]ER[place] HOLD SST (03/16/2021 14:36 EST) athologist Signature Hold Hold 03/16/2021 [facility] 15:46 EST MED [facility]ENTER LAB Specimen Anatomical Collection Method / Collection Time Recei jesus Time (Source) Location / Volume Laterality Blood VENOUS BLOOD / Venipuncture / 03/16/2021 14:36 021 Unknown Unknown EST 14:46 EST Snehal Michel [facility] LAB INFO SERVICE AND SUPPORT & PHONE RESULT Performing Organization Address City/State/ZIP Code Phon e Number [facility] [address] [place] [address] HOLD LAVENDER TOP (03/16/2021 14:36 EST) P athologist Signature Hold 03/16/2021 [facility] 15:08 EST [facility] LAB Specimen Anatomical Collection Method / Collection Time Recei jesus Time (Source) Location / Volume Laterality Blood VENOUS BLOOD / Venipuncture / 03/16/2021 14:36 021 Unknown Unknown EST 14:46 EST Snehal Michel [facility] LAB INFO SERVICE AND SUPPORT & PHONE RESULT Performing Organization Address City/[facility] Code [facility] e Number [facility] [address] [place] [address] documented in this encounter Visit Diagnoses Diagnosis Tibia/fibula fracture - Primary Closed fracture of unspecified part of f ibula with tibia Tibia/fibula fracture Closed fracture of unspecified part of f ibula with tibia Closed fracture of right tibia and fibul a, initial encounter Tibia/fibula fracture, right, closed, in itial encounter documented in this encounter Admitting Diagnoses Diagnosis Tibia/fibula fracture Closed fracture of unspecified part of f ibula with tibia Tibia/fibula fracture, right, closed, in itial encounter documented in this encounter Administered Medications Inactive Administered Medications - up to 3 most recent administrations Medication Order MAR Action Action Date Dose Rate Site acetaminophen (TYLENOL) tablet 975 Given 03/17/2021 11:29 EST 97 5 mg mg 975 mg (rounded from 1,000 mg), oral, EVERY 6 HOURS, First dose on Tue03/17/21 at 0600, Until Discontinued, Routine Given 03/17/2021 6:11 EST 975 mg acetaminophen (TYLENOL) tablet 975 mg Given 03/17/2021 1:04 EST 975 mg 975 mg, oral, Once (NO Time Specified), Starting on Tue03/17/21 at 0001, Until Tue03/17/21 at 0112, Routine, Recovery (only) amLODIPine (NORVASC) tablet 10 mg Given 03/17/2021 8:32 EST 10 mg 10 mg, oral, DAILY, First dose on Tue03/16/21 at 2015, Until Discontinued, Routine atorvastatin (LIPITOR) tablet 80 mg Given 03/17/2021 8:32 EST 80 mg 80 mg, oral, DAILY, First dose on Tue03/16/21 at 2015, Until Discontinued, Routine ceFAZolin in dextrose 5 % (ANCEF) IVPB DUPLEX Given 6:11 EST 2,000 mg 2,000 mg 2,000 mg, intravenous, Administer over 30 Minutes, EVERY 8 HOURS, 2 doses, First dose on Tue03/17/21 at 0600, Last dose on Tue03/17/21 at 1400, Type of Therapy: Prophylaxis, Suspected Indication (Select all that apply): Surgical prophylaxis, Routine enoxaparin (LOVENOX) injection 40 mg Given 03/17/2021 8:31 EST 40 mg 40 mg, subcutaneous, DAILY, First dose on Tue03/17/21 at 0900, Until Discontinued, Routine fentaNYL citrate (PF) injection 50 mcg Given 03/16/2021 14:50 EST 50 mcg 50 mcg, intravenous, NOW X1, 1 dose, On Tue03/16/21 at 1515, STAT fentaNYL citrate (PF) injection 50 mcg Given 03/16/2021 16:26 EST 50 mcg 50 mcg, intravenous, NOW X1, 1 dose, On Tue03/16/21 at 1645, STAT ketOROLAC (TORADOL) injection 15 mg Given 03/16/2021 18:31 EST 15 mg 15 mg, intravenous, NOW X1, 1 dose, On Tue03/16/21 at 1845, STAT lactated ringers (LR) infusion New Bag 03/17/2021 0:59 EST 1,000 mL 100 mL/hr at 100 mL/hr, 1,000 mL, intravenous, PACU CONTINUOUS, Starting on Tue03/17/21 at 0030, Until Tue03/17/21 at 0112, Routine, Recovery (only) morphine injection 4 mg Given 03/16/2021 18:11 EST 4 mg 4 mg, intravenous, NOW X1, 1 dose, On Tue03/16/21 at 1830, Routine ondansetron (PF) (ZOFRAN) injection 4 mg 4 mg, intravenous, EVERY 4 HOURS PRN, St arting on Tue03/17/21 at 0217, Until Tue03/17/21 at 1420, Nausea, Routine ondansetron (ZOFRAN-ODT) disintegrating tablet 4 mg 4 mg, oral, EVERY 4 HOURS PRN, Starting on Tue03/17/21 at 0217, Until Tue03/17/21 at 1420, Nausea, Routine oxyCODONE (ROXICODONE) immediate release tablet Given 03/17/2021 8:47 EST 5 mg 5-10 mg 5-10 mg, oral, EVERY 4 HOURS PRN, Starting on Tue03/17/21 at 0217, Until Tue03/17/21 at 1420, Pain, Routine Given 03/17/2021 4:18 EST 5 mg documented in this encounter Discontinued Medications Medication Sig Discontinue Reason Start Date End Date aspirin 81 mg EC Take 81 mg by mouth 02/24 tabletIndications: heart daily. health documented as of this encounter Active and Recently Administered Medications Times are shown in EST. Scheduled Medication Order 03/15/2021 03/16/2021 03/17/2021 acetaminophen (TYLENOL) tablet 975 mg 0611 (Given - Provider: Nicole Gamino RN - Comment: scheduled)1129 (Given - Provider: Raegan Negron RN) 975 mg (rounded from 1,000 mg), oral, EV RON 6 HOURS, First dose on Tue03/17/21 at 0600, Until Discontinued, Routine acetaminophen (TYLENOL) tablet 975 mg (CANCELED) 0104 (Given - Provider: Ayesha Messina RN) 975 mg, oral, ONCE, Starting on 02/24 at 0001, Until Tue03/17/21 at 0112, Routine, Recovery (only) amLODIPine (NORVASC) tablet 10 mg 2004 ( Hold - Provider: Jon Tse RN - Reason: NPO)2243 (JUN Hold - Provider: Automatic Transfer Provider Hn - Reason: Patient off unit) 0147 (JUN Unhold - Provider: Automatic T ransfer Provider Hn)0832 (Given - Provider: Raegan Negron RN) 10 mg, oral, DAILY, First dose on Tue at 2015, Until Discontinued, Routine ascorbic acid (vitamin C) (VITAMIN C) tablet 500 mg 500 mg, oral, AT BEDTIME, First dose on Tue03/17/21 at 2100, Until Discontinued, Routine atorvastatin (LIPITOR) tablet 80 mg 2004 (Hold - Provider: Jon Tse RN - Reason: NPO)2243 (JUN Hold - Provider: Automatic Transfer Provider Hn - Reason: Patient off unit) 0147 (JUN Unhold - Provider: Automatic T ransfer Provider Hn)0832 (Given - Provider: Raegan Negron RN) 80 mg, oral, DAILY, First dose on Tue at 2014, Until Discontinued, Routine ceFAZolin in dextrose 5 % (ANCEF) IVPB DUPLEX 2,000 mg (COMP LETED) 2218 (Given - Provider: Pauline Fisher MD) 2,000 mg, intravenous, Administer over 3 0 Minutes, PRE-OP ONCE, 1 dose, On Tue03/16/21 at 2200, Type of Therapy: Prophylaxis, Suspected Indication (Select all that apply): Surgical prophylaxis, Routine, Preprocedure ceFAZolin in dextrose 5 % (ANCEF) IVPB DUPLEX 2,000 mg 0611 (Given - Provider: Nicole Gamino RN)1400 (Canceled Entry - Provider: Batch Job User Admin - Comment: Automatically canceled at discontinue of medication order) 2,000 mg, intravenous, Administer over 3 0 Minutes, EVERY 8 HOURS, 2 doses, First dose on Tue03/17/21 at 0600, Last dose on Tue03/17/21 at 1400, Type of Therapy: Prophylaxis, Suspected Indication (Kim ct all that apply): Surgical prophylaxis, Routine cholecalciferol (Vitamin D3) tablet 2,000 Units 2,000 Units, oral, AT BEDTIME, First dos e on Tue03/17/21 at 2100, Until Discontinued, Routine docusate sodium (COLACE) capsule 200 mg 904 (Not Given - Provider: Raegan Negron RN - Reason: Patient/family refused) 200 mg, oral, 2 TIMES DAILY, First dose on Tue03/17/21 at 0900, Until Discontinued, Routine enoxaparin (LOVENOX) injection 40 mg 0831 (Given - Provider: Raegan Negron RN) 40 mg, subcutaneous, DAILY, First dose o n Tue03/17/21 at 0900, Until Discontinued, Routine fentaNYL citrate (PF) injection 50 mcg (COMPLETED) 1450 (Given - Provider: Orquidea Castro, [place]) 50 mcg, intravenous, NOW X1, 1 dose, On Tue03/16/21 at 1515, ST AT fentaNYL citrate (PF) injection 50 mcg (COMPLETED) 1626 (Given - Provider: Vadim Robledo, [place]) 50 mcg, intravenous, NOW X1, 1 dose, On Tue03/16/21 at 1645, ST AT ketOROLAC (TORADOL) injection 15 mg (COMPLETED) 183 (Given - Provider: Vadim Robledo, [place]) 15 mg, intravenous, NOW X1, 1 dose, On Tue03/16/21 at 1845, STA T morphine injection 4 mg (COMPLETED) 1810 (Given - Provider: Vadim Robledo, [place]) 4 mg, intravenous, NOW X1, 1 dose, On Tue03/16/21 at 1830, Rout ine morphine injection 4 mg 1853 (Not Given - Provider: Jose Juan Garcia RN - Reason: Patient/family refused - Comment: Pt tolerated procedure well, declines med.)2243 (JUN Hold - Provider: Automatic Transfer Provider Hn - Reason: Patient off unit) 0147 (JUN Unhold - Provider: Automatic T ransfer Provider Hn) 4 mg, intravenous, NOW X1, 1 dose, On Tue03/16/21 at 1845, STAT multivitamin-iron fumarate-FA (THERA-M PLUS) 9 mg iron-400 m cg tablet 1 Tablet 1 Tablet, oral, AT BEDTIME, First dose o n Tue03/17/21 at 2100, Until Discontinued, Routine polyethylene glycol 3350 (MIRALAX) packet 17 g 905 (Not Given - Provider: Raegan Negron RN - Reason: Patient/family refused) 17 g, oral, DAILY, First dose on Tue at 0900, Until Discontinued, Routine zinc sulfate (ZINCATE) capsule 220 mg 220 mg, oral, AT BEDTIME, First dose on Tue03/17/21 at 2100, Until Discontinued, Routine Continuous Medication Order 03/15/2021 03/16/2021 03/17/2021 lactated ringers (LR) infusion (CANCELED) 9025 (New Bag - Provider: Pauline Fisher MD)2314 (New Bag - Provider: Pualine Fisher MD) 0030 (Anesthesia Volume Adjustment - Provider: Pauline Fisher MD) at 25 mL/hr, 25 mL/hr, intravenous, CONT INUOUS, Starting on Tue03/16/21 at 2200, Until Tue03/17/21 at 0216, Routine, Preprocedure lactated ringers (LR) infusion (CANCELED) 0059 (New Bag - Provider: Ayesha Messina RN) at 100 mL/hr, 1,000 mL, intravenous, PAC U CONTINUOUS, Starting on Tue03/17/21 at 0030, Until Tue03/17/21 at 0112, Routine, Recovery (only) PRN Medication Order 03/15/2021 03/16/2021 03/17/2021 bisacodyL (DULCOLAX) suppository 10 mg 10 mg, rectal, DAILY PRN, Starting on 03/17/21 at 0217, Until Tue03/17/21 at 1420, Constipation, Routine bupivacaine (PF) (MARCAINE) 0.25 % (2.5 mg/mL) 30 mL, EPINEPHrine HCl (PF) (ADRENALIN) 0.3 mL (CANCELED) 2358 (Given - Provider: Brad Hendrix MD - Comment: 22 mL injected throughout procedure into surgical incisions x7) PRN, Starting on Tue03/16/21 at 2358, U ntil Tue03/17/21 at 0025, Intraprocedure calcium carbonate (TUMS) 200 mg calcium (500 mg) per chewable tablet tablet,chewable 2 Tablet 2 Tablet, oral, EVERY 2 HOURS PRN, Start ing on Tue03/17/21 at 0217, Until Tue03/17/21 at 1420, epigastric stress, Routine morphine injection 2 mg 2 mg, intravenous, EVERY 3 HOURS PRN, St arting on Tue03/17/21 at 0217, Until Tue03/17/21 at 1420, Pain, Breakthrough pain, Routine ondansetron (PF) (ZOFRAN) injection 4 mg(Linked Group 1) 4 mg, intravenous, EVERY 4 HOURS PRN, St arting on Tue03/17/21 at 0217, Until Tue03/17/21 at 1420, Nausea, Routine ondansetron (ZOFRAN-ODT) disintegrating tablet 4 mg(Linked Group 1) 4 mg, oral, EVERY 4 HOURS PRN, Starting on Tue03/17/21 at 0217, Until Tue03/17/21 at 1420, Nausea, Routine oxyCODONE (ROXICODONE) immediate release tablet 5-10 mg 0418 (Given - Provider: Nicole Gamino RN)0847 (Given - Provider: Raegan Negron RN) 5-10 mg, oral, EVERY 4 HOURS PRN, Starti ng on Tue03/17/21 at 0217, Until Tue03/17/21 at 1420, Pain, Routine senna (SENOKOT) tablet 2 Tablet 2 Tablet, oral, 2 TIMES DAILY PRN, Start ing on Tue03/17/21 at 0217, Until Tue03/17/21 at 1420, Constipation, Routine sodium chloride 0.9 % irrigation (CANCELED) 2359 (Given - Provider: Brad Hendrix MD) PRN, Starting on Tue03/16/21 at 2359, U ntil Tue03/17/21 at 0025, Routine, Intraprocedure Linked Groups Order Group 1: ondansetron (ZOFRAN-ODT) disintegrating tablet 4 mgJump to med 4 mg, oral, EVERY 4 HOURS PRN, Starting on Tue03/17/21 at 0217, Until Tue03/17/21 at 1420, Nausea, Routine Or ondansetron (PF) (ZOFRAN) injection 4 mgJump to med 4 mg, intravenous, EVERY 4 HOURS PRN, St arting on Tue03/17/21 at 0217, Until Tue03/17/21 at 1420, Nausea, Routine documented in this encounter Orders Medications Ordered That Might Not Have Count Last Ord ered Date First Ordered Date Been Administered ascorbic acid (vitamin C) (VITAMIN C) 1 03/17/2021 tablet 500 mg bisacodyL (DULCOLAX) suppository 10 mg 1 1 calcium carbonate (TUMS) 200 mg calcium 1 03/17/20 21 (500 mg) per chewable tablet tablet,chewable 2 Tablet ceFAZolin in dextrose 5 % (ANCEF) IVPB 2 1 03/16/2021 DUPLEX 2,000 mg cholecalciferol (Vitamin D3) tablet 2,000 1 2020 Units docusate sodium (COLACE) capsule 200 mg 1 03/17/20 ePHEDrine sulfate solution 5 mg 1 03/17/2021 fentaNYL citrate (PF) injection 25 mcg 1 1 glycopyrrolate (ROBINUL) injection 0.2 mg 1 2020 HYDROmorphone (PF) (DILAUDID) 0.5 mg/0.5 1 021 mL syringe 0.5 mg labetalol (TRANDATE) injection 5 mg 1 03/17/2021 lactated ringers BOLUS 500 mL 1 03/17/2021 metoclopramide (REGLAN) injection 10 mg 1 03/17/20 midazolam (PF) (VERSED) injection 1 mg 1 morphine injection 2 mg 1 03/17/2021 multivitamin-iron fumarate-FA (THERA-M 1 1 PLUS) 9 mg iron-400 mcg tablet 1 Tablet ondansetron (PF) (ZOFRAN) injection 4 mg 2 ondansetron (ZOFRAN-ODT) disintegrating 1 03/17/20 tablet 4 mg polyethylene glycol 3350 (MIRALAX) packet 1 2020 17 g senna (SENOKOT) tablet 2 Tablet 1 03/17/2021 zinc sulfate (ZINCATE) capsule 220 mg 1 03/17/2021 bupivacaine (PF) (MARCAINE) 0.25 % (2.5 1 03/16/20 21 mg/mL) 30 mL, EPINEPHrine HCl (PF) (ADRENALIN) 0.3 mL chlorhexidine gluconate 2 % cloth 1 Each 1 021 lactated ringers (LR) infusion 1 03/16/2021 lidocaine 1 % injection 2 mg 1 03/16/2021 morphine injection 4 mg 1 03/16/2021 sodium chloride 0.9 % irrigation 1 03/16/2021 Nursing Count Last Ordered Date First Ordered Date CALL PHYSICIAN SPECIALTY CONSULT 2 03/16/2021 PT Count Last Ordered Date First Ordered Date PT EVALUATION AND TREAT 1 03/17/2021 Admission Count Last Ordered Date First Ordered Date ADMIT TO INPATIENT 1 03/17/2021 Transfer Count Last Ordered Date First Ordered Date ED BED REQUEST 1 03/16/2021 Discharge Count Last Ordered Date First Ordered Date DISCHARGE PATIENT 1 03/17/2021 Equipment Count Last Ordered Date First Ordered Date CRUTCHES 2 03/17/2021 03/16/2021 WHEELED WALKER ([id number]) 2 03/17/2021 Case Request Count Last Ordered Date First Ordered Date CASE REQUEST OPERATING ROOM 1 03/16/2021 documented in this encounter Care Teams Rivet Tosser Relationship Specialty Start Date End Date Lamine Benton MD PCP - General 07/17/[address] [address] Unknown, Provider, 04/11/15 documented as of this encounter
--- OUTSIDE RECORDS SUMMARY | 2022-03-23 11:08 | XMS_ITS | Encounter Summary ---
:1955 Author Organization [facility] Address [address] [place] [address] Care Team Providers Name Role Phone Unknown, Provider Unavailable Lamine Benton MD Primary Care Provider [phone] Encounter Details Date Type Department Care Team Description 08/06/2021 Travel Social History Tobacco Use Types Packs/Day Years Used Date Smoking Tobacco: Former Cigarettes Quit : 03/16/1980 Smokeless Tobacco: Never Sex Assigned at Date Recorded Male 04/27/2021 18:11 EST COVID-19 Exposure Response Date Recorded In the last 10 days, have you been in contact with No / Unsu re 08/06/2021 14:33 EDT someone who was confirmed or suspected [...] on filedocumented in this encounter Care Teams Health Care Attorney Relationship Specialty Start Date End Date Lamine Benton MD PCP - General 07/17/18 4 [facility] [address] [place], [place] [address] Unknown, ProviderMD 04/11/15 documented as of this encounter
--- OUTSIDE RECORDS SUMMARY | 2022-03-23 11:08 | XMS_ITS | Clinical Summary ---
:[address] [facility] Address [address] [place] [address] Care Team Providers Name Role Phone Unknown, Provider MD Unavailable Lamine Benton MD Primary Care Provider [phone] Allergies Active Allergy Reactions Severity Noted Date Comments Gluten Other (See Comments) 01/21/2017 Wasp Venom 11/01/2020 Medications Medication Sig Dispensed Refills Start Date End Date Status amLODIPine (NORVASC) 10 Take 10 mg by 0 Active mg tabletIndications: mouth daily. hypertension atorvastatin (LIPITOR) Take 80 mg by 0 Active 80 mg mouth daily. tabletIndications: hyperlipidemia Coenzyme Q10 (CO Q-10) Take 100 mg by 0 Active 100 mg mouth daily. capsuleIndications: supplement multivit-min/folic/vit Take 1 Tablet by 0 Active K/lycop (MEN'S mouth daily. MULTIVITAMIN ORAL)Indications: supplement aspirin 325 mg tablet Take 1 Tablet by 60 Tablet 0 03/16/2021 Active mouth 2 times daily. acetaminophen (TYLENOL) Take 2 Tablets 30 Tablet 1 03/17/2021 Active 500 mg tablet by mouth every 6 hours. docusate sodium Take 2 Capsules 30 capsule 0 03/17/2021 Active (COLACE) 100 mg capsule by mouth 2 times daily. UNABLE TO FIND Med Name: CBD 0 A ctive UNABLE TO FIND Med Name: Arnica 0 Active [place] and Bryonia Alba Active Problems Problem Noted Date intermediate school teacher (current) use of aspirin 04/03/2021 Displaced oblique fracture of shaft of right fibula, s ubsequent encounter 04/03/2021 for closed fracture with routine healing Anaphylactic reaction to bee sting 03/16/2021 Tibia/fibula fracture 03/16/2021 Overview: Added automatically from request for jesica thomas [id number] Unspecified fall, subsequent encounter 03/16/2021 Toxic effect of venom of wasps, accidental (unintentio nal), initial 11/01/2020 encounter Leg cramps 09/30/2017 Metabolic syndrome 09/30/2017 Obesity 09/30/2017 Osteoarthrosis 03/26/2015 Benign prostatic hyperplasia 01/14/2015 Hyperlipidemia 01/14/2015 Hypertension 01/14/2015 Prediabetes 01/14/2015 Seborrhea 01/14/2015 Venous insufficiency 01/14/2015 Resolved Problems Problem Noted Date Resolved Date Tibia/fibula fracture, right, closed, initial encounter 02/2403/17/2021 Encounters Date Type Specialty Care Team Description 03/17/2022 Office Visit Orthopedic Surgery Donna Cooper (Primary Dx) STEPHEN Yin 03/17/2022 Travel 12/26/2021 Office Visit Urgent Care Helen Mayorga MD COVID-19 (Pr imary Dx); Heart murmur, a ortic from Last 3 Months Immunizations Name Administration Dates Next Due Historical WHO Approved Covid-19 [id number] Vaccine 07/31/2020 ([employer] COVID-19) PF 0.5 ml IM Surgical History Surgery Date Site/Laterality Comments TIBIA FRACTURE SURGERY 03/17/2021 Right s/p RIGHT TIBIAL INTRAMEDULLARY NAIL Medical History Medical History Date Comments Hypertension Social History Tobacco Use Types Packs/Day Years Used Date Smoking Tobacco: Former Cigarettes Quit : 03/16/1980 Smokeless Tobacco: Never Sex Assigned at Date Recorded Male 04/27/2021 18:11 EST COVID-19 Exposure Response Date Recorded In the last 10 days, have you been in contact with No / Unsu re 03/17/2022 13:05 EST someone who was confirmed or suspected to have Coronavirus/COVID-19? Obstetrics History Last Filed Vital Signs Vital Sign Reading Time Taken Comments Blood Pressure 160/70 12/26/2021 1603 EDT Pulse 86 12/26/2021 1603 EDT Temperature 38.7 ??C (101.7 ??F) 12/26/2021 1603 EDT Respiratory Rate 16 12/26/2021 1603 EDT Oxygen Saturation 96% 12/26/2021 1603 EDT Inhaled Oxygen Concentration - - Weight 99.8 kg (220 lb) 03/17/2021 0125 EST Height 177.8 cm (5' 10) 03/17/2021 0125 EST Body Mass Index 31.57 03/17/2021 0125 EST Plan of Treatment Health Maintenance Due Date Last Done Comments Hepatitis C Screen 1955 Fall Risk Screening 2018 COVID-19 Vaccine (2 - WHO-authorized series) 08/28/202011/2020 Medical Devices Implanted Type Area Watch Case Polisher Device Shelf Model / Identifier Expiration Serial / Date Lot Intramedullary Nail Tibial Ti Light Green [id number] Exp ert [id number] - [id number] Nail Right: DEPUY Oh BiBi 10/22/2022 [id number] / Implanted: Qty: 1 on 03/16/2021 by Steffi Hendrix M D at [facility] [employer] / [id number] Screw Locking Ti 5mm X 46mm For Im Nails [id number] - [id number] Scr ew Right: DEPUY Oh [employer]Bi 03/17/2021 [id number] / Implanted: Qty: 1 on 03/16/2021 by Steffi Hendrix MD at [facility] Implant [employer] / Endcap Intramedullary Nail Demetri 5mm Nail Ex [id number] - [id number] Total Right: DEPUY Oh [employer] 03/17/2021 [id number] / Implanted: Qty: 1 on 03/16/2021 by Steffi Hendrix MD at [facility] Joint [employer] NA / Implant Procedures Procedure Name Priority Date/Time Associated Diagnosis Comme nts XR TIBIA FIBULA Routine 03/17/2022 13:15 Fracture Results for this RIGHT 2 VIEWS EST procedure are in the results section. from Last 3 Months Results XR TIBIA FIBULA RIGHT 2 VIEWS [...] Cooper PA-C IMG DIAGNOSTIC IMAGING ORD ERABLES from Last 3 Months Insurance Payer Benefit Plan Subscriber ID Effective Phone Address Typ e / Group Dates [facility] [id number] 2020-Pres [phone] [address] Med[address] re HEALTHCARE MEDICARE ent [id number] [address] [address] Quinn Daniel Personal/Family Self 1955 [address] [place] [address] Quinn Daniel Personal/Family Self 1955 [address] [place] [address] Quinn Daniel Personal/Family Self 1955 [address] [place] [address] Advance Directives For more information, please contact: [phone] Latest Code Status on File Code Status Date Activated Date Inactivated Comments Full Code 03/17/2021 2:17 03/17/2021 14:25 When the patient has NO PULSE: Full Code / CPR Who Made the Decision? Patient Full Code 03/16/2021 21:42 03/17/2021 2:16 When the patient has NO PULSE: Full Code / CPR Who Made the Decision? Patient Care Teams Director Health Relationship Specialty Start Date End Date Lamine Benton MD PCP - General 07/17/[address] [place] [id number] Unknown, ProviderMD 04/11/15
--- OUTSIDE RECORDS SUMMARY | 2022-03-23 11:08 | XMS_ITS | Encounter Summary ---
:1955 Author Organization [facility] Address [address] [place] [address] Care Team Providers Name Role Phone Unknown, Provider Unavailable Lamine Benton MD Primary Care Provider [phone] Reason for Referral Referral (Routine/Next Available) - Closed Specialty Diagnoses / Procedures Referred By Contact Refer red To Contact Diagnoses Right leg pain Brad Hendrix MD [address] [place] [phone] Referral ID Status Reason Start Date Expiration Date Visits V isits Requested Authorized [id number] Closed Specialty 03/31/2021 1 1 Services Required Question Answer I certify that this patient is under my 03/31/2021 care and that I, or another Medicare allowed practitioner (DO FRANKIE, JENNIE) working with me, had a [id number] encounter with this patient on this date: The discharge summary or progress note will Yes provide further details that support the need for the home health services and the plan of care. Enter the allowed practitioner (DO FRANKIE, Leo Manuel JENNIE) who will provide oversight of this patient's home heatlh care needs and plan of care The patient? S/P right tibial intramedullary nail s homebound status is related to the 03/17/21 following diagnoses, illness or condition (describe): Patient needs one or more of the following Assistance not necessary, but medically to leave home: contraindicated as indicated below. Leaving the home is medically Ambulation or weight fredis ring is medically contraindicated due to: restricted The following conditions illustrate the Post surgical or post procedure patient? restrictions limit ambulation and activi ty s normal inability to leave home AND that leaving home requires a considerable and taxing effort: Skilled Care Requested Physical Therapy Physical therapy is needed for: Post Surgical Comments PT for ROM of ankle. Patient is restricted to toe-touch weigh t bearing for the next two weeks, and then can begin to weight bear. Reason for Visit Reason Comments Post-OP Follow Up Encounter Details Date Type Department Care Team Description 03/31/2021 Post-op Visit [facility] - Brad Hendrix Right leg pain [facility] [place] (Primary Dx) Sport Medicine [address] [address] [address] [address] Social History Tobacco Use Types Packs/Day Years Used Date Smoking Tobacco: Former Cigarettes Quit : 03/16/1980 Smokeless Tobacco: Never Sex Assigned at Date Recorded Male 04/27/2021 18:11 EST COVID-19 Exposure Response Date Recorded In the last month, have you been in contact with No / Unsure 03/31/2021 10:46 EST someone who was confirmed or suspected [...] making decisions? documented as of this encounter Ordered Prescriptions Prescription Sig Dispensed Refills Start Date End Date methocarbamoL (ROBAXIN) Take 2 Tablets by 30 Tablet 1 03/3108/06/2021 500 mg tablet mouth 4 times daily as needed for Pain or Muscle Spasms. documented in this encounter Progress Notes Kindra Mendoza MA - 03/31/2021 1045 EST Quinn presents today for a follow up of his right leg. He is S/P Right tibial Intramedullary nail done on 03/17/21. Here today for a post-operative visit. Brad Hendrix MD - 03/31/2021 1045 EST Orthopaedic Surgery Office Note Quinn Daniel 1955 [id number] Chief Complaint: Chief Complaint Patient presents with ??? Right Lower Leg - Post-OP Follow Up History of Present Illness: Quinn Daniel is a very pleasant 65 y.o. male who presents today for follow- up of his right tib/fib fracture. He is s/p IMN for this on 03/17/21. He is doing well. Pain controlled without use of narcotics at this point. Review of Systems: As above. Active Ambulatory [...] quittin.0 ??? Smokeless tobacco: Never Used Substance and [...] Range of motion to DF neutral PF 20 Imaging Studies: Xrays of the right tib/fib alignment and hardware position. There is no evidence ofhardware failure or other complication. Assessment and Plan: Quinn Daniel is a very pleasant 65 y.o. male who presents today for follow- up of his right tib/fib fracture. Doing well to date with this injury. We will see back in follow-up in 4 weeks with repeat xrays. Converted to a boot today and in two weeks ok to start progressing weight bearing. ROM ok. BRAD HENDRIX MD Orthopaedics and Sports Medicine [facility] [address] [place], [place] documented in this encounter Plan of Treatment Scheduled Referrals Name Type Priority Associated Order Schedule Diagnoses AMB CONS/FOLLOW Outpatient Routine/Next Right leg pain Expected: UP HOME HEALTH Referral Available 04/07/2021 SERVICES (Approximate), Expires: 03/31/2022 documented as of this encounter Procedures Procedure Name Priority Date/Time Associated Diagnosis Comme nts XR TIBIA FIBULA Routine 03/31/2021 11:16 Right leg pain Result s for this RIGHT 2 VIEWS EST procedure are in the results section. documented in this encounter Results XR TIBIA FIBULA RIGHT 2 VIEWS (03/31/2021 11:16 EST) Anatomical Region Laterality Modality Lower Extremities Computed Radiography Specimen (Source) Anatomical Collection Method Collection Time Re ceived Time Location / / Volume Laterality 03/31/2021 13:04 EST Narrative 03/31/2021 13:04 EST INDICATION: S/P tibial intramedullary nail TECHNIQUE: Two-views (AP & lateral) of t he right lower leg. COMPARISON: 03/17/2021. 03/16/2021. FINDINGS: The internally fixed incomplet devang healed comminuted proximal fibula and distal tibia fractures are unchanged in alignment. Also, alignment of the distal fibula neck incompletely healed fracture is unchanged. No hardware failure is seen. Procedure Note Amadou Mcfarland MD - 03/31/2021Formattin g of this note might be different from the original. INDICATION: S/P tibial intramedullary na il TECHNIQUE: Two-views (AP & lateral) of t he right lower leg. COMPARISON: 03/17/2021. 03/16/2021. FINDINGS: The internally fixed incomplet devang healed comminuted proximal fibula and distal tibia fractures are unchanged in alignment. Also, alignment of the distal fibula neck incompletely healed fracture is unchanged. No hardware failure is seen. Brad Hendrix MD IMG DIAGNOSTIC IMAGING ORDER GUERA documented in this encounter Visit Diagnoses Diagnosis Right leg pain - Primary Pain in limb documented in this encounter Discontinued Medications Medication Sig Discontinue Reason Start Date End Date methocarbamoL (ROBAXIN) Take 2 Tablets by Reorder 03/16/2021 03/31/2021 500 mg tablet mouth 4 times daily as needed for Pain or Muscle Spasms. documented as of this encounter Historical Medications This list may reflect changes made after this encounter. Medication Sig Dispensed Refills Start Date End Date UNABLE TO FIND Med Name: Mari Bernabe and 0 Venkateshjoey Antonella UNABLE TO FIND Med Name: CBD 0 added in this encounter Care Teams Manager Service Desk Relationship Specialty Start Date End Date Lamine Benton MD PCP - General 07/17/18 4 [facility] [address] [place] [address] Unknown, MD Padmini 04/11/15 documented as of this encounter
--- OUTSIDE RECORDS SUMMARY | 2022-03-23 11:08 | XMS_ITS | Encounter Summary ---
:1955 Author Organization [facility] Address [address] [place] [address] Care Team Providers Name Role Phone Unknown, Provider Unavailable Lamine Benton MD Primary Care Provider [phone] Reason for Visit Reason Onset Date Comments Follow-up 03/23/2021 Encounter Details Date Type Department Care Team Description 03/23/2021 Telephone [facility] [place] [facility] [place] Daniel RN Follow-up Orthopedics & Sport [address] [facility] Medicine [address], [place] [address] [address] [place] [address] [phone] Social History Tobacco Use Types Packs/Day Years [...] Telephone Encounter - Adina Matthew LPN - 03/23/2021 1057 EST Return call made to Quinn informing him what SG said. He has been WB. I asked him how much weight or percent of his wt doesn't he think he has been putting on the leg. He reports 10-15%. No increasedpain or swelling that he is aware of. He will now be NWB as instructed. He also had several medication questions. All were answered. He was also scheduled for a post-op visit on 03/31/21 Telephone Encounter - Steffi Hendrix MD - 03/23/2021 1041 EST He is in a splint so other than what he needs to do to get around not really. We will likely converthim to a boot when we see him at two weeks and then he will start range of motion although remainingnon-weight bearing through 4-6 weeks from surgery. Telephone Encounter - Pastora Daniel RN - 03/23/2021 0949 EST Mr. Daniel called and left a voice mail message on Tuesday to follow up on if he should be doing any exercises now that he is home. He is s/p IMN for his right tib/fib fracture on 03/16/21. Reviewed the discharge information - unable to see weight bearing status or any other recommendations post op. Will review with SG. Dr. Hendrix - please review and advise. documented in this encounter Plan of Treatment Not on filedocumented as of this encounter Visit Diagnoses Not on filedocumented in this encounter Care Teams Securities Sales Associate Relationship Specialty Start Date End Date Lamine Benton MD PCP - General 07/17/[address] [address] Unknown, ProviderMD 04/11/15 documented as of this encounter
--- OUTSIDE RECORDS SUMMARY | 2022-03-23 11:08 | XMS_ITS | Encounter Summary ---
:1955 Author Organization [facility] Address [address] [place] [address] Care Team Providers Name Role Phone Unknown, Provider MD Unavailable Lamine Benton MD Primary Care Provider [phone] Reason for Referral PT/OT/ST (Routine/Next Available) - Closed Specialty Diagnoses / Procedures Referred By Contact Refer red To Contact Diagnoses Right leg pain Steffi Hendrix MD Gym, Rehab [address] [place] [id number] [place] [id number] Fax: Referral ID Status Reason Start Date Expiration Date Visits V isits Requested Authorized [id number] Closed Specialty 04/28/2021 1 1 Services Required Question Answer Reason for Request: S/P right tibial intramedull [place] nail 03/17/21 ascular Lab (Routine/Next Available) - Authorization Not Required Specialty Diagnoses / Procedures Referred By Contact Refer red To Contact Diagnoses Leg swelling Pain in both lower extremities Steffi Hendrix MD Procedures US LOWER VENOUS DUPLEX [address] [facility] [address] [place] [address] Referral ID Status Reason Start Expiration Visits Visits Date Date Requested Authorized [id number] Authorization Not 04/28/2021 1 1 Required Reason for Visit Reason Comments Follow-up Encounter Details Date Type Department Care Team Description 04/28/2021 Office Visit [facility] - Ruma[facility]ffi Right l eg pain (Primary Dx); [facility] [place] Orthopedics & [place] Leg swelling; Sport Medicine [address] Pain in both lower extremities [address] [place] [address] [id number] Social History Tobacco Use Types Packs/Day Years [...] documented as of this encounter Progress Notes Kindra Mendoza MA - 04/28/2021 1530 EST Quinn presents today for a follow up of his right leg. He is S/P right tibial intramedullary nail done on 03/17/21. LV was on 03/31/21 where x-rays were completed. He was transitioned into a walking boot. Here today for reevaluation and repeat x-rays. XR pended. Steffi Hendrix MD - 04/28/2021 1530 EST Orthopaedic Surgery Office Note Quinn Solorzano María 1955 [id number] Chief Complaint: Chief Complaint Patient presents with ??? Right Lower Leg - Follow-up History of Present Illness: Quinn Daniel is a very pleasant 65 y.o. male who presents today for follow- up of his right tib/fib fracture. He is s/p IMN for this on 03/17/21. He is doing well. Pain controlled without use of narcotics at this point. Working with PT. Still some generalized swelling in both legs. Review of Systems: As above. Active Ambulatory [...] Former Smoker Quit date: 03/16/1980 Years since quittin.1 ??? Smokeless tobacco: Never Used Substance and [...] We will see back in follow-up in 6 weeks with repeat xrays. OK to progress weight bearing- update note for PT given. Steffi Hendrix MD Orthopaedics and Sports Medicine [facility], [facility] [address] [place], [place] documented in this encounter Plan of Treatment Scheduled Referrals Name Type Priority Associated Order Schedule Diagnoses AMB CONS/FOLLOW Outpatient Routine/Next Right leg pain Expected: UP PHYSICAL Referral Available 05/05/2021 THERAPY - (Approximate), OUTSIDE OF Expires: NETWORK 04/28/2022 documented as of this encounter Procedures Procedure Name Priority Date/Time Associated Diagnosis Comme nts US LOWER VENOUS Routine 05/01/2021 19:59 Leg swelling Results for this DUPLEX EST Pain in both lower procedure are in extremities the results section. documented in this encounter Results US LOWER VENOUS DUPLEX (DVT) BILATERAL (05/01/2021 19:59 EST) Anatomical Region Laterality Modality Vascular Ultrasound Specimen (Source) Anatomical Collection Method Collection Time Re ceived Time Location / / Volume Laterality 04/29/2021 12:30 EST Impressions 05/01/2021 20:36 EST No evidence of deep vein thrombosis. THIS DOCUMENT HAS BEEN ELECTRONICALLY SI GNED BY CALEB XIE MD FOR ANY QUESTIONS OR CONCERNS REGARDING THIS REPORT PLEASE CALL [facility] AT [phone] Narrative 05/01/2021 20:36 EST PROCEDURE INFORMATION: Exam: US Duplex Lower Extremity Veins, B ilateral Exam date and time: 04/29/2021 12:30 PM Age: 65 years old Clinical indication: Pain in right leg; Pain in left leg; Other specified soft tissue disorders; Swellin g (edema) of limb; Lower extremity, bilateral TECHNIQUE: Imaging protocol: Real-time duplex ultra sound of the extremities with 2-D pagan scale, color Doppler flow and spectral waveform analysis with image documentation. Compl ete exam focused on the bilateral lower extremity veins. COMPARISON: CR XR TIBIA FIBULA RIGHT 2 VIEWS 3:40 PM FINDINGS: Right deep veins: Unremarkable. The comm on femoral, femoral, proximal profunda femoral and popliteal veins are patent without thrombus. Normal Doppler waveforms. Norm al compressibility and/or augmentation response. ?? Right superficial veins: Saphenofemoral junction is patent without thrombus. Left deep veins: Unremarkable. The commo n femoral, femoral, proximal profunda femoral and popliteal veins are patent without thrombus. Normal Doppler waveforms. Norm al compressibility and/or augmentation response. ?? Left superficial veins: Saphenofemoral j unction is patent without thrombus. Soft tissues: Unremarkable. Procedure Note Caleb Xie MD - 05/01/2021For matting of this note might be different from the original. PROCEDURE INFORMATION: Exam: US Duplex Lower Extremity Veins, B ilateral Exam date and time: 04/29/2021 12:30 PM Age: 65 years old Clinical indication: Pain in right leg; Pain in left leg; Other specified soft tissue disorders; Swellin g (edema) of limb; Lower extremity, bilateral TECHNIQUE: Imaging protocol: Real-time duplex ultra sound of the extremities with 2-D pagan scale, color Doppler flow and spectral waveform analysis with image documentation. Compl ete exam focused on the bilateral lower extremity veins. COMPARISON: CR XR TIBIA FIBULA RIGHT 2 VIEWS 2 3:40 PM FINDINGS: Right deep veins: Unremarkable. The comm on femoral, femoral, proximal profunda femoral and popliteal veins are patent without thrombus. Normal Doppler waveforms. Norm al compressibility and/or augmentation response. Right superficial veins: Saphenofemoral junction is patent without thrombus. Left deep veins: Unremarkable. The commo n femoral, femoral, proximal profunda femoral and popliteal veins are patent without thrombus. Normal Doppler waveforms. Norm al compressibility and/or augmentation response. Left superficial veins: Saphenofemoral j unction is patent without thrombus. Soft tissues: Unremarkable. IMPRESSION No evidence of deep vein thrombosis. THIS DOCUMENT HAS BEEN ELECTRONICALLY SI GNED BY CALEB XIE MD FOR ANY QUESTIONS OR CONCERNS REGARDING THIS REPORT PLEASE CALL [facility] AT [phone] Steffi Hendrix MD IMG US VASCULAR ORDERABLES XR TIBIA FIBULA RIGHT 2 VIEWS (04/28/2021 15:44 EST) Anatomical Region Laterality Modality Lower Extremities Computed Radiography Specimen (Source) Anatomical Collection Method Collection Time Re ceived Time Location / / Volume Laterality 04/28/2021 18:32 EST Narrative 04/28/2021 18:32 EST INDICATION: Right lower leg pain TECHNIQUE: Two-view right tibia/fibula. COMPARISON: 03/31/2021 and 03/16/2021. FINDINGS: There is a healing, internally fixed fracture of the distal tibial diaphysis. No hardware complication is detected. The position remains anatomic. Healing appears progressive but incomplete. T here has also been interval healing of f ractures of the proximal and distal fibula, unchanged in alignment. Procedure Note Mayur Brown MD - 04/28/2021Formattin g of this note might be different from the original. INDICATION: Right lower leg pain TECHNIQUE: Two-view right tibia/fibula. COMPARISON: 03/31/2021 and 03/16/2021. FINDINGS: There is a healing, internally fixed fracture of the distal tibial diaphysis. No hardware complication is detected. The position remains anatomic. Healing appears progressive but incomplete. There has also been interval healing of fractures of the proximal and distal fibula, unchanged in alignment. Steffi Hendrix MD IMG DIAGNOSTIC IMAGING ORDER GUERA documented in this encounter Visit Diagnoses Diagnosis Right leg pain - Primary Pain in limb Leg swelling Swelling of limb Pain in both lower extremities documented in this encounter Care Teams Channel Marketing Specialist Relationship Specialty Start Date End Date Lamine Benton MD PCP - General 07/17/[address] [address] Unknown, ProviderMD 04/11/15 documented as of this encounter
--- OUTSIDE RECORDS SUMMARY | 2022-03-23 11:08 | XMS_ITS | Encounter Summary ---
:1955 Author Organization [facility] Address [address] [place] [address] Care Team Providers Name Role Phone Unknown, Provider Unavailable Lamine Benton MD Primary Care Provider Encounter Details Date Type Department Care Team Description 03/31/2021 Travel Social History Tobacco Use Types Packs/Day [...] on filedocumented in this encounter Care Teams Admittance Attendant Relationship Specialty Start Date End Date Lamine Benton MD PCP - General 07/17/18 4 [facility] [address] [place], [place] [address] Unknown, ProviderMD 04/11/15 documented as of this encounter
--- OUTSIDE RECORDS SUMMARY | 2022-03-23 11:09 | XMS_ITS | Encounter Summary ---
:1955 Author Organization [facility] Address [address] [place] [address] Care Team Providers Name Role Phone Unknown, Provider Unavailable Lamine Benton MD Primary Care Provider [phone] Encounter Details Date Type Department Care Team Description 03/16/2021 Travel Social History Tobacco Use Types Packs/Day [...] on filedocumented in this encounter Care Teams Heading Repairer Relationship Specialty Start Date End Date Lamine Benton MD PCP - General 07/17/18 4 [facility] [address] [place], [place] [address] Unknown, ProviderMD 04/11/15 documented as of this encounter
--- OUTSIDE RECORDS SUMMARY | 2022-03-23 11:09 | XMS_ITS | Encounter Summary ---
:1955 Author Organization [facility] Address [address] [place] [address] Care Team Providers Name Role Phone Unknown, Provider MD Unavailable Lamine Benton MD Primary Care Provider [phone] Reason for Visit Reason Comments Eye Problem Here for 2nd opinion of floa ter in left eye. Encounter Details Date Type Department Care Team Description 08/22/2018 Office Visit [facility] Sera Dobbins, Ophthalmology - [place] [address] [facility] [address] [place] [address] [place], [place] [address] [phone] Social History Tobacco Use Types Packs/Day Years Used Date Smoking Tobacco: Never Smokeless Tobacco: Never Sex Assigned at Date Recorded Male 04/27/2021 18:11 EST documented as of this encounter Functional Status Functional Status Response Date of Assessment Because of [...] documented as of this encounter Progress Notes Sera Dobbins MD, MD - 08/22/2018 0845 EDT Chief Complaint Patient presents with ??? Eye Problem Here for 2nd opinion of floater in left eye. HPI The patient is a 62 y.o. male c/o floater in left eye for months. Last October was hit in the left eye with an apple- 8 year old grandson threw it from 15 ft. Had new floaters a few days later. Seen by Dr. Rodríguez on 11/23/17 who noted minimal findings. Symptoms then changed, floater changed and developed strings and looked more like a spinning rubber band. Saw Dr. Rodríguez again 12/08 who diagnosed a PVD. Since then floater is still present, concerned that he continues to see an arc of light in the dark. Wondering if something is going on with his retina. No pain. [facility]ine care at [facility] Right Eye: NL Left Eye: Flashes, Floaters Visual Aid: Glasses Current Rx Age Location: Left eye Pain: 0 - No pain Quality: Severity: Moderate Duration: Months Timing: Fluctuates Lasts: Continuous Context: Last October was hit in the left eye with an apple- a few days later noticed a lot of new floaters. Was seen by Dr. Rodríguez who noted minimal findings. A few weeks later noticed floater had changed, had strings, lacework and was like a spinning rubber band- was seen by Dr. Rodríguez again who noted a PVD and vitreous syneresis. Modifying factors: He is still seeing the floater in his left eye that has a veil that will blur hisvision every so often, every now and then seeing an arc of light superiorly, mostly when it's dark. Has not noticed any new floaters since injury. Associated Signs & Symptoms: Attestation: ROS Constitutional: NL ENT/Mouth NL Cardiovascular: High Blood Pressure, High Cholesterol(on meds) Respiratory: NL Gastrointestinal: NL Genitourinary: NL Musculoskeletal: NL Integumentary: NL Neurologic: NL Psychiatric: NL Endocrine: NL Hematologic: NL Immunologic: NL Air And Water Tester: Exposures: None Other: Attestation: Base Eye Exam Visual Acuity (Snellen - Linear) Right Left Dist cc 20/20 20/20 Correction: Glasses Tonometry (Applanation, 9:01) Right Left Pressure 19 19 Pupils Pupils Dark Shape APD Right PERRL 4 Round None Left PERRL 4 Round None Visual Kaur (Counting fingers) Right Left Full Full Extraocular Movement Right Left Full Full Neuro/Psych Oriented x3: Yes Dilation Both eyes: 1.0% Mydriacyl, 2.5% Phenylephrine @ 9:01 Slit Lamp and Fundus Exam External Exam Right Left External Normal Normal Slit Lamp Exam Right Left Lids/Lashes Normal Normal Conjunctiva/Sclera White and quiet White and quiet Cornea Clear Clear Anterior Chamber Deep and quiet Deep and quiet Iris Round and reactive Round and reactive Lens 1+ Nuclear sclerosis 1+ Nuclear sclerosis Fundus Exam Right Left Vitreous Normal no Beaumont's sign, Posterior vitreous detachment Disc Normal Normal C/D Ratio 0.25 0.2 Macula 1/2 DA, hyperpigmented, flat faint lesion with no orange pigmentation or subretinal fluid Epiretinal membrane, patch of chorioretinal atrophy inferiorly Vessels Normal Normal Periphery Intraretinal heme infero temporally Normal Refraction Wearing Rx Sphere Cylinder Sedan Right -1.00 +1.25 177 Left -0.75 +0.75 004 DIAGNOSTIC TESTS: IMPRESSION & PLAN: ??? Posterior vitreous detachment of left eye - retina flat with no holes/tears/retinal detachment - call for increase in flashes or floaters, decreased vision ??? Choroidal nevus of right eye - no concerning characteristics - observe ??? Epiretinal membrane (ERM) of left eye - not visually significant - observe, call with changes in vision, metamorphopsia ?? Retinal hemorrhage, right eye - no associated pathology, likely age related - observe ??? Nuclear senile cataract of both eyes - not visually significant - Observe I have reviewed the patient's past medical, family, social and surgical history. I have also reviewed the patient's medications, allergies, and problem list. I performed my own HPI and have reviewed the tech's ROS as well. I completed this exam personally. Sera Dobbins MD I am scribing for Sera Dobbins MD, while she is personally performing the service. Guillermina Moran, ANA Patient Education Topic: PVD, left eye Method: Demonstration and Verbal Taught to: Patient and Family Barriers: None Outcomes: independent Signature: Sera Dobbins MD documented in this encounter Plan of Treatment Not on filedocumented as of this encounter Visit Diagnoses Diagnosis Posterior vitreous detachment of left ey e - Primary Vitreous degeneration Choroidal nevus of right eye Benign neoplasm of choroid Epiretinal membrane (ERM) of left eye Retinal hemorrhage, right eye Retinal hemorrhage Nuclear senile cataract of both eyes documented in this encounter Historical Medications This list may reflect changes made after this encounter. Medication Sig Dispensed Refills Start Date End Date multivit-min/folic/vit Take 1 Tablet by 0 K/lycop (MEN'S MULTIVITAMIN mouth daily. ORAL)Indications: supplement Coenzyme Q10 (CO Q-10) 100 Take 100 mg by 0 mg capsuleIndications: mouth daily. supplement atorvastatin (LIPITOR) 80 Take 80 mg by 0 mg tabletIndications: mouth daily. hyperlipidemia amLODIPine (NORVASC) 10 mg Take 10 mg by 0 tabletIndications: mouth daily. hypertension aspirin 81 mg EC Take 81 mg by 0 03/16 tabletIndications: heart mouth daily. health added in this encounter Eye Exam Visual Acuity (Snellen - Linear) Right eye Left eye Dist cc 20/20 20/20 Correction: Glasses Tonometry (Applanation, 9:01) Right eye Left eye Pressure 19 19 Pupils Pupils Dark Shape APD Right eye PERRL 4 Round None Left eye PERRL 4 Round None Visual Kaur (Counting fingers) Right eye Left eye Full Full Extraocular Movement Right eye Left eye Full Full Neuro/Psych Oriented x3: Yes Dilation Both eyes: 1.0% Mydriacyl, 2.5% Phenylep hrine @ 9:01 External Exam Right eye Left eye External Normal Normal Slit Lamp Exam Right eye Left eye Lids/Lashes Normal Normal Conjunctiva/Sclera White and quiet White and quiet Cornea Clear Clear Anterior Chamber Deep and quiet Deep and quiet Iris Round and reactive Round and reactive Lens 1+ Nuclear sclerosis 1+ Nuclear sclerosi s Vitreous Normal no Beaumont's sign, Po sterior vitreous detachment Fundus Exam Right eye Left eye Disc Normal Normal C/D Ratio 0.25 0.2 Macula 1/2 DA, hyperpigmented, flat faint Epire tinal membrane, patch of lesion with no orange pigmentation or ch orioretinal atrophy inferiorly subretinal fluid Vessels Normal Normal Periphery Intraretinal heme infero temporally Norm al Wearing Rx Sphere Cylinder Sedan Right eye -1.00 +1.25 177 Left eye -0.75 +0.75 004 Care Teams Shingles Roofer Relationship Specialty Start Date End Date Lamine Benton MD PCP - General 07/17/18 4 [facility] [address] [place], [place] [id number] Unknown, Provider, 04/11/15 documented as of this encounter
--- OUTSIDE RECORDS SUMMARY | 2022-03-23 11:09 | XMS_ITS | Encounter Summary ---
:1955 Author Organization [facility] Address [address] [place] [address] Care Team Providers Name Role Phone Unknown, Provider Unavailable Lamine Benton MD Primary Care Provider [phone] Reason for Visit Reason Comments Ankle Injury slipped on plywood while [place] and heard a snap in the ankle and states the foot went floppy Auth/Cert Specialty Diagnoses / Procedures Referred By Contact Refer red To Contact Diagnoses Tibia/fibula fracture Tibia/fibula fracture, right, closed, initial encounter Referral ID Status Reason Start Date Expiration Date Visits Requ ested Visits Authorized [id number] 1 1 Encounter Details Date Type Department Care Team Description 03/16/2021 Surgery [facility] - Brad Hendrix NT, FRACTURE, [facility] Operating Room MD Sloane TIBIA, SHAFT, BY [address] [facility] [place] [address] [address] [[id number] (CPT??)] [phone] [place] [address] Surgery Details Date/Time Status Location OR Service Patient Class Case Case Trauma Class Type Case? 03/16/21 2100 Posted [facility] OR OR Orthopedics Emergency F - Less than 24 hours Panel 1 Procedure LRB Anes Op Region Wound Class Commen ts TREATMENT, FRACTURE, TIBIA, SHAFT, BY Right Lower Leg Class I/ Clean INTRAMEDULLARY IMPLANT Surgeon Surgeon Role Service Panel Brad Hendrix MD Primary Orthopedics 1 Eduardo Perez PA-C Assisting Orthopedics 1 documented in this encounter Social History Tobacco [...] Sign Reading Time Taken Comments Blood Pressure 165/85 03/16/2021 1830 EST Pulse - - Temperature - - Respiratory Rate 16 03/16/2021 1445 EST Oxygen Saturation 95% 03/16/2021 1917 EST Inhaled Oxygen Concentration - - Weight 99.8 kg (220 lb) 03/16/2021 1444 EST Height 177.8 cm (5' 10) 03/16/2021 1444 EST Body Mass Index 31.57 03/17/2021 0125 [...] EST Orthopaedics Discharge Summary Quinn Daniel 1955 [id number] Primary Care Physician: Lamine Benton CC: N/A [...] 134/74 -- -- -- -- -- -- 03/17/21 0105 -- 37 ??C (98.6 ??F) Tympanic -- [...] -- 98 % -- -- 03/16/211829 (!) 165/85 -- -- -- 98 % -- -- [...] -- -- -- 98 % -- -- 03/16/211603 -- -- -- -- 98 % -- -- 03/16/21 160 -- -- -- -- 97 % -- -- 11/22/21 1602 -- -- -- -- 97 % [...] THIS REPORT PLE ASE CALL VRAD AT [phone] XR TIBIA FIBULA RIGHT 2 VIEWS Result [...] REGARDING THIS REPORT PLEASE CALL [facility]AD AT [phone] XR TIBIA FIBULA RIGHT 2 VIEWS Result [...] the hospital encounter of 03/16/21 COVID-19 TESTING ([facility], [facility], ) Specimen: Nasopharynx; Swab Result Value Ref Range Performing Lab [facility] Hospital Lab COVID-19 PMC [facility] CVPH [facility] (TESTING ONLY) Specimen: Nasopharynx; Swab Result [...] note were not included. Orthopaedics Discharge Instructions [facility] Surgery: RIGht tibia intra-medullary nail Surgeon: [...] any questions or concerning symptoms at . [facility] Patient Instructions Broken Lower Leg: Care [...] your doctor if you can take an ydrs-wzt-loizeji medicine. Do not put weight on your [...] Where can you learn more? Go to https://www.madvertise.net/Eat Clubealth or log into your Spotzer account at https://EventBug.theScore.Nativoo Enter L198 in the search box to learn more about Broken Lower Leg: Care Instructions. Current as of: June 25, 2019 Content Version: 12.6 ?? BugSense. Care instructions adapted under license by [facility]. If you have questions about a medical condition or this instruction, always ask your healthcare professional. [employer] disclaims any warranty or liability for your use of this information. [facility] Patient Instructions Wearing a Plaster Cast: Care Instructions Your Care Instructions A cast protects a broken bone or other injury while it heals. Your cast is made of plaster. After a cast is put on, you can't remove it yourself. Your doctor or a exhaust emissions automotive technician will take it off. Follow-up care [...] your doctor if you can take an bppm-ifn-pgpnjbb medicine. Do exercises as instructed by your [...] care Try blowing cool air from a foreign languages department chair or fan into the cast to help [...] Where can you learn more? Go to https://www.madvertise.net/theScore or log into your Spotzer account at https://EventBug.theScore.Nativoo Enter P140 in the search box to learn more about Wearing a Plaster Cast: Care Instructions. Current as of: June 25, 2019 Content Version: 12.6 ?? BugSense. Care instructions adapted under license by [facility]. If you have questions about a medical condition or this instruction, always ask your healthcare professional. [employer] disclaims any warranty or liability for your [...] Disposition Code Departure Means Destination Home-Health Care [facility] Home documented in this encounter Progress Notes Laurie Royal OT - 03/17/2021 1220 EST [facility] Inpatient Rehabilitation Services [facility] Occupational Therapy Initial Evaluation Note Date of Service: 03/17/2021 SUBJECTIVE: Patient is currently having difficulty with: Walking Patient/Caregiver States: I'm going home today Patient and Caregiver Goals: go home to recover Subjective Information Reported by: Patient Pain Comments: no c/o pain during session OBJECTIVE: Patient Profile: Patient is a 65 y.o. male admitted on 03/16/2021 secondary to Tibia/fibula fracture. The patient lives at [address] [place] [id number] Hand Dominance: Right Social History: lives with [...] Patient/Family Education Comments: Gave vendor info for [employer] for bathroom Team Communication: Notified: Team By: [...] discharged from the hospital Short Term Goals:NA Husker Operator Goals:NA PLAN: Discontinue occupational therapy services Single visit eval only. Pt discharging home today Recommended Discharge Destination: Home with family support/supervision Recommended Discharge Destination Comments: Pt planning to follow up with orthopedic services Equipment Recommended: Dressing/Grooming/Feeding Equipment, Bathing Equipment Bathing Equipment: Raised toilet seat with handles, Tub bench Equipment Recommended Comments: Gave [employer] Whe[employer] contact info LAURIE ROYAL OT, 03/17/2021, 14:31 Brad Hendrxi MD - 03/17/2021 1141 EST Orthopaedic Surgery [...] Intake 2110 ml Output 100 ml Net 2009 ml Gen: Awake alert appropriate, no acute [...] BRAD HENDRIX MD Orthopaedics and Sports Medicine [facility] [address] [place], [place] Nicole Mcintyre - 03/17/2021 1131 EST C.M. NOTE: The Pt is being discharged home today with no additional services in place. Physical Therapist, Cole, provided the Pt with a wheeled walker from the Care Management supply. The Pt's face sheet, [employer] paper work., script, and clinical was faxed to [employer]. 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 [facility] PS Past Medical History: Diagnosis Date ??? [...] -- -- -- 98 % 03/16/211829 (!) 165/ -- -- 98 % 03/16/211828 -- -- [...] % 03/16/211746 -- -- -- 97 % 11/22/21 1746 -- -- -- 96 % 03/16/21 1745 -- -- -- 95 % 03/16/21 1744 -- -- -- 97 % 03/16/21 1743 -- -- -- 95 % 03/16/21 1742 -- -- -- 96 % 03/16/21 174 -- -- -- 98 % 03/16/21 1740 -- -- -- 97 % 03/16/21 173 -- -- -- 98 % 03/16/21 1738 -- -- -- 97 % 03/16/21 173 [...] 172 -- -- -- 97 % 03/16/21 1726 -- -- -- 97 % 03/16/21 172 -- -- -- 99 % 03/16/21 172 -- -- -- 98 % 03/16/21 172 -- -- -- 98 % 03/16/21 1722 -- -- -- 97 % 03/16/21 172 -- -- -- 98 % 03/16/21 1720 -- -- -- 98 % 03/16/21 171 -- -- -- 97 % 03/16/21 1718 -- -- -- 96 % 03/16/21 171 -- -- -- 97 % 03/16/21 1716 -- -- -- 96 % 03/16/21 171 -- -- -- 97 % 03/16/21 171 -- -- -- 97 % 03/16/21 1713 -- -- -- 98 % 03/16/21 1712 [...] (!) 151/81 -- -- 98 % 03/16/21 1659 -- -- -- 97 % 03/16/21 1658 -- -- -- 95 % 03/16/21 1657 -- -- -- 98 % 03/16/21 1656 [...] @ 23:59 Final ??? Performing Lab 03/16/2021 [facility] Hospital Lab Final ??? COVID-19 rt-PCR Result [...] terminated or revoked sooner. Performed on the [employer] GeneXpert Instrument The 2019 novel coronavirus (SARS-CoV-2) [...] PT postoperatively. TAHIR HAYNES MD 03/16/2021 19:53 [id number] documented in this encounter OR Notes OR Surgeon - Brad Hendrix MD - 03/17/2021 0034 EST Quinn Daniel [id number] 1955 Orthopaedic Surgery Operative Note Pre-operative Diagnosis: [...] in place, we then used the perfect kaltag technique to place distal interlocking screws. Once [...] BRAD HENDRIX MD Orthopaedics and Sports Medicine [facility] [address] [place], [place] documented in this encounter ED Notes Snehal Moore DO - 03/16/2021 6579 EST Emergency Department Visit Assessment and ED [...] mm in the lateral direction. Gaudencio Perez ([facility] Ortho PA) evaluated patient. Patient placed in a cast. CBC shows a mildly elevated white blood cell count of 12.6 which is otherwise unremarkable. BMP is unremarkable. Covid is negative. Patient will go to the OR [facility]. Final diagnoses: None Disposition: No disposition [...] Procedures Procedures Jon Tse RN - 03/16/2021 6748 EST Pt arrives with RLL deformity and crepitus above ankle following a fall while attempting to enter his vehicle at home. Pt denies head strike or LOC. Pt states he slipped while getting in his car. Pt is not anticoagulated and denies health Hx except for HTN. VSS. NAD. Pain 3/10 to RLL. Orquidea Castro, RN - 03/16/2021 1442 EST Pt arrives via EMS due to right ankle injury. Slipped on plywood. Andrews a snap and then the right foot looked floppy. Pain 2/10. Received ketamine prior to arrival. documented in this encounter Miscellaneous Notes Plan of Care - MiguelinaNicole davidson - 03/17/2021 0886 EST Initial Case Management/Social Work Assessment and Discharge Plan/Readmission Risk Assessment REASON FOR ADMISSION: Tibia/fibula fracture Patient understands reason for admission: (P) Yes PATIENT INFO VERIFIED: (P) PCP, Contact Info, Address Type of housing (single family, condo, apartment, shelter, single room occupancy, [facility] funded hotel room, group longterm) - Single family Who does the patient live with? , Kristan Does the patient have access to their own bedroom/bathroom/kitchen - or is it shared with others? yes Name of housing complex (ex [facility], [facility], etc)- n/a Housing Authority/Managing Organization - n/a Community Care Providers (case finisher, [facility] nurse, etc) name and contact information- n/a [...] to be discharged to: (P) home CULTURAL, PENTECOSTALISM and/or LANGUAGE factors affecting health care/discharge planning: [...] Health Services: (P) None DME Provider: Pharmacy: [id number] - [place], [place] - [address] [place] [address] AT [facility] [address] [facility] [address] Home Health: Other: POST HOSPITAL TRANSITION PLAN: Pt was admitted on 03/16 d/t tib/fib fx. Pt is A&Ox3. He has an active PCP in [place]. Pt lives in a 2 story home with his . He has 3 stairs to enter the home. Pt's Delicia agudelo will be helping with transportation. Pt does not want home health services and would prefer to travel to outpatient PT in [place]. He currently has no assistive devices for [...] 0032 EST Date: 03/16/2021 - 03/17/2021 Location: [facility] OR Name: Quinn Daniel, : 1955, Diagnosis Pre-Op Diagnosis Codes: * Tibia/fibula fracture [S82.209A, S82.409A] Post-op Diagnosis * Tibia/fibula fracture [S82.209A, S82.409A] Procedures TREATMENT, FRACTURE, TIBIA, SHAFT, BY INTRAMEDULLARY IMPLANT [id number] - MS TREAT TIBIAL SHAFT FX, INTRAMED IMPLANT Surgeons [...] Implanted 4 interlocking screws, 5mm endcap Staff: Tire Care Manager: Sera Jain RN [employer] Fre[employer] Car Cleaner: Justa Feliciano; Bonifacio Sanchez Scrub Person: Donna [...] BRAD HENDRIX MD Orthopaedics and Sports Medicine [facility] [address] [place], [place] documented in this encounter Plan of [...] Routine 03/16/2021 16:15 Resul ts for this (CV, PMC,HP) EST procedure are in the results section. COVID-19 CV (TESTING Today 03/16/2021 16:15 R esults for [...] that is no t available. Scan 2 [employer] Sander PROCEDURE/MINOR SURGICAL ORD ERABLES (ABNORMAL) COMPLETE BLOOD COUNT (03/17/2021 6:45 EST) P athologist Signature WBC 10.42 (H) 4.00 - 03/17/2021 [facility] 10.40 7:17 [facility] K/cmm CENTER LAB RBC 4.53 4.36 - 03/17/2021 [facility] 5.78 M/cmm 7:17 [facility] LAB Hemoglobin 13.3 (L) 13.8 - 03/17/2021 [facility] 17.3 gm/dL 7:17 [facility] LAB HCT 39.9 39.5 - 03/17/2021 [facility] 50.2 % 7:17 [facility] LAB MCV 88 81 - 95 fl 03/17/2021 [facility] 7:17 [facility] LAB MCH 29.4 27.6 - 03/17/2021 [facility] 33.0 pg 7:17 [facility] LAB MCHC 33.3 32.8 - 03/17/2021 [facility] 36.4 gm/dL 7:17 [facility] LAB RDW-CV 13.5 <14.2 % 03/17/2021 [facility] 7:17 [facility] LAB RDW-SD 43.6 <46.0 fl 03/17/2021 [facility] 7:17 [facility] LAB PLT 161 141 - 377 03/17/2021 [facility] K/cmm 7:17 [facility] LAB MPV 10.9 9.5 - 12.7 03/17/2021 [facility] fl 7:17 [facility] LAB Specimen Anatomical Collection Method / Collection Time Recei jesus Time (Source) Location / Volume Laterality Blood VENOUS BLOOD / Venipuncture / 03/17/2021 6:45 03/17/20 6:54 Unknown Unknown [facility] Brad Hendrix MD HEMATOLOGY & PF4 ORDERABLES Performing Organization Address City/State/ZIP Code Phon e Number [facility] [address] [place] [address] (ABNORMAL) BASIC METABOLIC PANEL (BMP) (03/17/2021 6:44 EST) P athologist Signature Sodium 136 136 - 145 03/17/2021 [facility] mmol/L 7:36 [facility] Potassium 4.1 3.5 - 5.0 03/17/2021 [facility] mmol/L 7:36 [facility] Chloride 102 96 - 110 03/17/2021 [facility] mmol/L 7:36 [facility] CO2 Total 28 22 - 32 03/17/2021 [facility] mmol/L 7:36 [facility] Anion Gap 6 (L) 8 - 16 03/17/2021 [facility] 7:36 [facility] Glucose 114 (H) 70 - 100 03/17/2021 [facility] mg/dL 7:36 [facility] Calcium 8.6 8.5 - 10.5 03/17/2021 [facility] mg/dL 7:36 [facility] BUN 14 10 - 26 03/17/2021 [facility] mg/dL 7:36 [facility] Creatinine 0.67 0.66 - 1.25 03/17/2021 [facility] mg/dL 7:36 EST [facility] eGFR 99 >60 03/17/2021 [facility] mL/min/1.73 7:[address] LAB Specimen Anatomical Collection Method / Collection Time Recei jesus Time (Source) Location / Volume Laterality Blood VENOUS BLOOD / Venipuncture / 03/17/2021 6:44 03/17/20 6:54 Unknown Unknown EST EST Brad Hendrix MD CHEMISTRY & BLOOD GAS ORDERA BLES Performing Organization Address City/State/ZIP Code Phon e Number [facility] [address] [place] [address] XR TIBIA FIBULA RIGHT 2 VIEWS (03/17/2021 [...] REGARDING THIS REPORT PLEASE CALL [facility]AD AT [phone] Narrative 03/17/2021 5:36 EST PROCEDURE INFORMATION: Exam: [...] REGARDING THIS REPORT PLEASE CALL [facility] AT [phone] Brad [facility] DIAGNOSTIC IMAGING ORDER [place] C-ARM 0-1 HOUR (03/17/2021 0:08 EST) Specimen (Source) Anatomical Location Collection Method / Collectio n Time Received Time / Laterality Volume Narrative 03/17/2021 0:09 EST This is a non-reportable exam. Brad EARLY OTHER IMAGING ORDERABLES XR TIBIA FIBULA RIGHT [...] REGARDING THIS REPORT PLEASE CALL [facility] AT [phone] Narrative 03/16/2021 21:21 EST PROCEDURE INFORMATION: Exam: [...] REGARDING THIS REPORT PLEASE CALL [facility] AT [phone] Snehal Moore DO IMG DIAGNOSTIC IMAGING ORDER [place] COVID-19 [facility] CV CVPH [facility] (TESTING ONLY) (03/16/2021 16:15 EST) athologist Signature COVID-19 Negative Negative 03/16/2021 [facility] rt-PCR Result 17:31 EST [facility] Comment: This test has not been [...] terminated or revoked sooner. Performed on the [employer] GeneXpert Instr ument The 2019 novel coronavirus (SARS-CoV-2) target nucleic acids are not detected. Specimen Anatomical Location Collection Method Collection Time Received Time (Source) / Laterality / Volume Swab ENTIRE NASOPHARYNX Swab / Unknown 03/16/2021 16:15 / Unknown EST 16:21 EST Snehal Moore DO MICROBIOLOGY - GENERAL ORDER [place] Performing Organization Address City/[facility]/ZIP Code Phon e Number [facility] [address] [place] [address] COVID-19 TESTING ([facility], [facility], [place]) (03/16/2021 16:15 EST) [facility] Crunchbutton Method Time Signature Performing Lab [facility] 03/16/2021 [facility] 16:32 EST [facility] Specimen Anatomical Location Collection Method Collection Time Received Time (Source) / Laterality / Volume Swab ENTIRE NASOPHARYNX Swab / Unknown 03/16/2021 16:15 / Unknown EST 16:21 EST Snehal Moore DO MICROBIOLOGY - GENERAL ORDER [place] Performing Organization Address City/State/ZIP Code Phon e Number [facility] [address] [place] [address] TYPE AND SCREEN (03/16/2021 16:15 EST) [facility] Crunchbutton Method Time Signature ABO B 03/16/2021 [facility] 17:00 EST [place] [facility] Rh Factor Positive 03/16/2021 [facility] 17:00 EST [facility] Antibody Negative 03/16/2021 [facility] Screen 17:00 EST [facility] Specimen 03/19/2021 @ 03/16/2021 [facility] Expires: 23:59 17:00 EST [place] [facility] Specimen Anatomical Collection Method / Collection Time Recei jesus Time (Source) Location / Volume Laterality Blood VENOUS BLOOD / Venipuncture / 03/16/2021 16:15 021 Unknown Unknown EST 16:32 EST Snehal Moore DO BLOOD BANK TESTS Performing Organization Address City/[facility]/ZIP Code Phon e Number [facility] BLOOD BANK [address] [place] [address] (ABNORMAL) BASIC METABOLIC PANEL (BMP) (03/16/2021 16:15 EST) athologist Signature Sodium 138 136 - 145 03/16/2021 [facility] mmol/L 16:48 EST [facility] Potassium 4.0 3.5 - 5.0 03/16/2021 [facility] mmol/L 16:48 [facility] Chloride 104 96 - 110 03/16/2021 [facility] mmol/L 16:48 EST [facility] CO2 Total 28 22 - 32 03/16/2021 [facility] mmol/L 16:48 EST [facility] Anion Gap 6 (L) 8 - 16 03/16/2021 [facility] 16:48 EST [facility] Glucose 98 70 - 100 03/16/2021 [facility] mg/dL 16:48 EST [facility] Calcium 8.8 8.5 - 10.5 03/16/2021 [facility] mg/dL 16:48 [facility] BUN 16 10 - 26 03/16/2021 [facility] mg/dL 16:48 EST [facility] Creatinine 0.82 0.66 - 1.25 03/16/2021 [facility] mg/dL 16:48 EST [facility] eGFR 92 >60 03/16/2021 [facility] mL/min/1.73 16:48 EST [facility] m2 Specimen Anatomical Collection Method / Collection Time Recei jesus Time (Source) Location / Volume Laterality Blood VENOUS BLOOD / Venipuncture / 03/16/2021 16:15 021 Unknown Unknown EST 16:20 EST Snehal Moore DO CHEMISTRY & BLOOD GAS ORDERA BLES Performing Organization Address City/State/ZIP Code Phon e Number [facility] [address] [place] [address] (ABNORMAL) COMPLETE BLOOD COUNT AND DIFFERENTIAL (03/16/2021 16:15 EST) [facility] gist Method Time Signature WBC 12.63 (H) 4.00 - 03/16/2021 [facility] 10.40 16:27 [facility] K/cmm CENTER LAB RBC 5.01 4.36 - 03/16/2021 [facility] 5.78 16:27 [facility] M/[facility] LAB Hemoglobin 14.7 13.8 - 03/16/2021 [facility] 17.3 16:27 [facility] gm/dL [place] [facility] HCT 43.7 39.5 - 03/16/2021 [facility] 50.2 % 16:27 [facility] LAB MCV 87 81 - 95 03/16/2021 [facility] fl 16:27 [facility] LAB MCH 29.3 27.6 - 03/16/2021 [facility] 33.0 pg 16:27 [facility] LAB MCHC 33.6 32.8 - 03/16/2021 [facility] 36.4 16:27 [facility] gm/dL [place] [facility] RDW-CV 13.2 <14.2 % 03/16/2021 [facility] 16:27 [facility] RDW-SD 41.9 <46.0 fl 03/16/2021 [facility] 16:27 [facility] PLT 183 141 - 377 03/16/2021 [facility] K/m 16:27 [facility] MPV 10.7 9.5 - 03/16/2021 [facility] 12.7 fl 16:27 [facility] Neutrophils 79.0 % 03/16/2021 [facility] 16:27 [facility] Lymphocytes 10.1 % 03/16/2021 [facility] 16:27 [facility] Monocytes 9.7 % 03/16/2021 [facility] 16:27 [facility] Eosinophils 0.6 % 03/16/2021 [facility] 16:27 [facility] Basophils 0.3 % 03/16/2021 [facility] 16:27 [facility] Immature Grans 0.3 % 03/16/2021 [facility] 16:27 [facility] Absolute 9.97 (H) 2.20 - 03/16/2021 [facility] Neutrophils 8.85 16:27 [facility] LAB Absolute 1.27 1.09 - 03/16/2021 [facility] Lymphocytes 3.30 16:27 [facility] CENTER LAB Absolute 1.23 (H) 0.10 - 03/16/2021 [facility] Monocytes 0.80 16:27 [facility] CENTER LAB Absolute 0.08 0.03 - 03/16/2021 [facility] Eosinophils 0.61 16:27 [facility] K/[facility] CENTER LAB Absolute 0.04 0.01 - 03/16/2021 [facility] Basophils 0.11 16:27 [facility] LAB Absolute 0.04 0.00 - 03/16/2021 [facility] Immature Grans 0.06 16:27 [facility] LAB Type of Auto 03/16/2021 [facility] Differential: 16:27 [facility] LAB Specimen Anatomical Collection Method / Collection Time Recei jesus Time (Source) Location / Volume Laterality Blood VENOUS BLOOD / Venipuncture / 03/16/2021 16:15 021 Unknown Unknown EST 16:20 EST Snehal Moore DO PACKAGES & DNA PROBE ORDERAB LES Performing Organization Address City/[facility]/ZIP Code Phon e Number [facility] [address] [place] [address] HOLD GREEN TOP (03/16/2021 16:15 EST) athologist Signature Hold Hold 03/16/2021 [facility] 17:30 EST [facility] LAB Specimen Anatomical Collection Method / Collection Time Recei jesus Time (Source) Location / Volume Laterality Blood VENOUS BLOOD / Venipuncture / 03/16/2021 16:15 021 Unknown Unknown EST 16:20 EST Snehal Moore DO LAB INFO SERVICE AND SUPPORT & PHONE RESULT Performing Organization Address City/[facility] Phon e Number [facility] [address] [place] [address] XR TIBIA FIBULA RIGHT 2 VIEWS (03/16/2021 [...] 14:36 EST) athologist Signature Hold Hold 03/16/2021 [facility] 15:46 EST MED CENTER LAB Specimen Anatomical Collection Method / Collection Time Recei jesus Time (Source) Location / Volume Laterality Blood VENOUS BLOOD / Venipuncture / 03/16/2021 14:36 021 Unknown Unknown EST 14:46 EST Snehal Michel Teresa [facility] LAB INFO SERVICE AND SUPPORT & PHONE RESULT Performing Organization Address City/State/ZIP Code Phon e Number [facility] [address] [place] [address] HOLD LAVENDER TOP (03/16/2021 14:36 EST) P athologist Signature Hold 03/16/2021 [facility] 15:08 EST [facility] Specimen Anatomical Collection Method / Collection Time Recei jesus Time (Source) Location / Volume Laterality Blood VENOUS BLOOD / Venipuncture / 03/16/2021 14:36 021 Unknown Unknown EST 14:46 EST Snehal Michel Teresa [facility] INFO SERVICE AND SUPPORT & PHONE RESULT Performing Organization Address City/[facility]/ZIP Code Phon e Number [facility] [address] [place] [address] documented in this encounter Visit Diagnoses Diagnosis Tibia/fibula fracture - Primary Closed fracture of unspecified part of f ibula with tibia Tibia/fibula fracture Closed fracture of unspecified part of f ibula with tibia Closed fracture of right tibia and fibul a, initial encounter Tibia/fibula fracture Closed fracture of unspecified part of f ibula with tibia documented in this encounter Admitting Diagnoses Diagnosis [...] on Tue03/16/21 at 2015, Until Discontinued, Routine bupivacaine (PF) (MARCAINE) 0.25 % (2.5 mg/mL) Given 021 23:58 EST 22 mL 30 mL, EPINEPHrine HCl (PF) (ADRENALIN) 0.3 mL PRN, Starting on Tue03/16/21 at 2358, Until Tue03/17/21 at 0025, Intraprocedure ceFAZolin in dextrose 5 % (ANCEF) [...] Routine Given 03/17/2021 4:18 EST 5 mg sodium chloride 0.9 % irrigation Given 03/16/2021 23:59 EST 1,000 mL PRN, Starting on Tue03/16/21 at 2359, Until Tue03/17/21 at 0025, Routine, Intraprocedure documented in this encounter Discontinued Medications Medication [...] - Provider: Jon Tse RN - Reason: NPO)2242 (JUN Hold - Provider: Automatic Transfer Provider Hn - Reason: Patient off unit) 146 (JUN Unhold - Provider: Automatic T mellisasfer Provider Hn)0832 (Given - Provider: Raegan Negron RN) 10 mg, oral, DAILY, First dose on Tue at 2015, Until Discontinued, Routine ascorbic acid (vitamin C) (VITAMIN C) tablet 500 mg 500 mg, oral, AT BEDTIME, First dose on Tue03/17/21 at 2100, Until Discontinued, Routine atorvastatin (LIPITOR) tablet 80 mg 2004 (Hold - Provider: Jon Tse RN - Reason: NPO)2242 (JUN Hold - Provider: Automatic Transfer Provider Hn - Reason: Patient off unit) 146 (JUN Unhold - Provider: Automatic T ransfer Provider Hn)0832 (Given - Provider: Raegan Negron RN) 80 mg, oral, DAILY, First dose on Tue at 2015, Until Discontinued, Routine ceFAZolin in [...] Discontinued, Routine enoxaparin (LOVENOX) injection 40 mg 830 (Given - Provider: Raegan Negron, [place]) 40 mg, subcutaneous, DAILY, First dose o n Tue03/17/21 at 0900, Until Discontinued, Routine fentaNYL citrate (PF) injection 50 mcg (COMPLETED) 1450 (Given - Provider: Orquidea Castro RN) 50 mcg, intravenous, NOW X1, 1 dose, On Tue03/16/21 at 1515, ST AT fentaNYL citrate (PF) injection 50 mcg (COMPLETED) 1626 (Given - Provider: Vadim Robledo RN) 50 mcg, intravenous, NOW X1, 1 dose, On Tue03/16/21 at 1645, ST AT ketOROLAC (TORADOL) injection 15 mg (COMPLETED) 183 (Given - Provider: Vadim Robledo RN) 15 mg, intravenous, NOW X1, 1 dose, On Tue03/16/21 at 1845, STA T morphine injection 4 mg (COMPLETED) 1810 (Given - Provider: Vadim Robledo RN) 4 mg, intravenous, NOW X1, 1 dose, On Tue03/16/21 at 1830, Rout ine morphine injection 4 mg 185 (Not Given - Provider: Jose Juan Garcia [...] polyethylene glycol 3350 (MIRALAX) packet 17 g 09 (Not Given - Provider: Raegan Negron RN - Reason: Patient/family refused) 17 g, oral, DAILY, First dose on Tue at 0900, Until Discontinued, Routine zinc sulfate (ZINCATE) capsule 220 mg 220 mg, oral, AT BEDTIME, First dose on Tue03/17/21 at 2100, Until Discontinued, Routine Continuous Medication Order 03/15/2021 03/16/2021 03/17/2021 lactated ringers (LR) infusion (CANCELED) 2155 (New Bag - Provider: Pauline Fisher MD)2314 (New Bag - Provider: Pauline Fisher MD) 0030 (Anesthesia Volume Adjustment - [...] mg bisacodyL (DULCOLAX) suppository 10 mg 1 calcium carbonate (TUMS) 200 mg calcium 1 03/17/20 (500 mg) per chewable tablet tablet,chewable 2 Tablet ceFAZolin in dextrose 5 % (ANCEF) IVPB 2 1 03/16/2021 DUPLEX 2,000 mg cholecalciferol (Vitamin D3) tablet 2,000 1 2020 Units docusate sodium (COLACE) capsule 200 mg 1 03/17/20 ePHEDrine sulfate solution 5 mg 1 03/17/2021 fentaNYL citrate (PF) injection 25 mcg 1 glycopyrrolate (ROBINUL) injection 0.2 mg 1 [...] sulfate (ZINCATE) capsule 220 mg 1 03/17/2021 chlorhexidine gluconate 2 % cloth 1 Each 1 021 lactated ringers (LR) infusion 1 03/16/2021 lidocaine 1 % injection 2 mg 1 03/16/2021 morphine injection 4 mg 1 03/16/2021 Nursing Count Last Ordered Date [...] 03/16/2021 documented in this encounter Care Teams Correspondence Renew Clerk Relationship Specialty Start Date End Date Lamine Benton MD PCP - General 07/17/[address] [place] [id number] Unknown, Provider, 04/11/15 documented as of this encounter
--- OUTSIDE RECORDS SUMMARY | 2022-03-23 11:09 | XMS_ITS | Encounter Summary ---
:1955 Author Organization [facility] Address [address] [place] [address] Care Team Providers Name Role Phone Unavailable Primary Care Provider Unavailable Encounter Details Date Type Department Care Team Description 03/28/[address] [facility] - Unknown, Carin coleman [facility] [phone] [place] [address] (Work) [place] [address] Social History Tobacco Use Types Packs/Day Years Used Date Smoking Tobacco: Never Assessed Sex Assigned at Date Recorded Male 04/27/2021 18:11 EST documented as of this encounter Discharge Disposition Disposition Code Departure Means Destination Home or Self Group Home documented in this encounter Plan of Treatment Not on filedocumented as of this encounter Visit Diagnoses Not on filedocumented in this encounter
--- OUTSIDE RECORDS SUMMARY | 2022-03-23 11:09 | XMS_ITS | Encounter Summary ---
:1955 Author Organization [facility] Address [address] [place] [address] Care Team Providers Name Role Phone Unknown, Provider Primary Care Provider Unknown, Provider Primary Care Provider Unknown, Provider Unavailable Lamine Benton MD Primary Care Provider [phone] Encounter Details Date Type Department Care Team Description 03/28/[address] [facility] - Abner Sequeira, Only [facility] Radiology CNM Results [address] [place], [place] [id number] [place] [address], [facility] [phone] [place], [address] [place] [address] (Wo rk) Social History Tobacco Use Types Packs/Day Years Used Date Smoking Tobacco: Never Assessed Sex Assigned at Date Recorded Male 04/27/2021 18:11 EST documented as of this encounter Plan of Treatment Not on filedocumented as of this encounter Procedures Procedure Name Priority Date/Time Associated Diagnosis Comme nts XR HAND LEFT 3 OR 03/28/2015 13:35 Result s for this MORE VIEWS EST procedure are i n the results section. documented in this encounter Results XR HAND LEFT 3 OR MORE VIEWS (03/28/2015 13:35 EST) Anatomical Region Laterality Modality Upper Extremities Left Other Specimen (Source) Anatomical Collection Method Collection Time Re ceived Time Location / / Volume Laterality 03/28/2015 13:35 EST Narrative 03/28/2015 13:39 EST ? EXAM: RADIOLOGY/HAND-LEFT 3+VIEW ?EX. D/ (1034) ? CLINICAL INFORMATION: ? M19.90 OSTEOARTHRITIS ? INDICATION: M19.90 OSTEOARTHRITIS ? TECHNIQUE: 3 views left hand. ? COMPARISON: None. ? FINDINGS: There is early polyarti cular joint space narrowing ? throughout the interphalangeal charlotte ints of the left hand. Minimal ? marginal osteophyte is seen at th e thumb interphalangeal joint. No ? periarticular destructive bone ch anges are seen. The MCP joints ? appear preserved. Minimal joint s pace narrowing is seen at the base ? of the thumb. ? Impression: ? 1. Early polyarticular osteoarthr itic change. ? REPORT SIGNED IN OTHER VENDOR SYSTEM 03/28/2015 ?Reported B y: Amadou Mcfarland MD ? CC: ? Transcribed Date/Time: 03/28/2015 (1339) ? Lamp Cleaner: ? Printed Date/Time: 10/04/2018 (11 34) ? PAGE 1 ? Geno d Report ? Procedure Note Amadou Mcfarland MD - 02/28/2019Formatt ing of this note might be different from the original. EXAM: RADIOLOGY/HAND-LEFT 3+VIEW EX. D/ (1034) CLINICAL INFORMATION: M19.90 OSTEOARTHRITIS INDICATION: M19.90 OSTEOARTHRITIS TECHNIQUE: 3 views left hand. COMPARISON: None. FINDINGS: There is early polyarticular joint space narrowing throughout the interphalangeal joints o f the left hand. Minimal marginal osteophyte is seen at the thum b interphalangeal joint. No periarticular destructive bone changes are seen. The MCP joints appear preserved. Minimal joint space n arrowing is seen at the base of the thumb. Impression: 1. Early polyarticular osteoarthritic corrine dubon. REPORT SIGNED IN OTHER VENDOR SYSTEM 03/28/2015 Reported By: Amadou Mcfarland MD CC: Transcribed Date/Time: 03/28/2015 (9739 ) Lamp Cleaner: Printed Date/Time: 10/04/2018 (5347) PAGE 1 Signed Report Fabiola Sequeira [facility] IMG DIAGNOSTIC IMAGING ORDER GUERA documented in this encounter Visit Diagnoses Not on filedocumented in this encounter Care Teams Shipping And Receiving Specialist Relationship Specialty Start Date End Date Unknown, ProviderMD PCP - General 04/07/15 04/10/15 Unknown, ProviderMD PCP - General 04/11/15 07/16/18 Lamine Benton MD PCP - General 07/17/[address] [address] Unknown, MD Padmini 04/11/15 documented as of this encounter
[2022-03-23 14:57] LABS: Hemoglobin A1C 5.9 % (<5.7)
[2022-03-23 14:59] LABS: ALT 65 U/L (16-63); AST 35 U/L (15-37); Alkaline Phosphatase 106 U/L (46-116); Anion Gap 9.3 mmol/L (3-11); BUN 15 mg/dL (7-18); Bilirubin, Total 0.5 mg/dL (0.2-1.0); CO2 25.7 mmol/L (21.0-32.0); CREATININE 0.8 mg/dL (0.70-1.30); Calcium 9.1 mg/dL (8.5-10.1); Calculated LDL 124 mg/dL (<100); Chloride 103 mmol/L (98-107); Cholesterol 196 mg/dL (<200); Glucose 106 mg/dL (74-106); HDL Cholesterol 40 mg/dL (40-60); Sodium 138 mmol/L (136-145); Triglyceride 161 mg/dL (<150)
== END 2022-03-23 11:08 | disposition home or self-care (01) ==
LOC: NCHCN 11:07
PROVIDERS: PCP Family Medicine; Visit Provider Family Medicine
DX: I10 Essential (primary) hypertension (principal); R73.03 Prediabetes; E66.9 Obesity, unspecified; E88.81 Metabolic syndrome and other insulin resistance; Z00.00 Encounter for general adult medical examination without abnormal findings
CPT/HCPCS: 80053; 80061; 83036

== ENCOUNTER 2023-03-30 13:36 | Outpatient (REF) | payer MEDICARE, SELFPAY ==
[2023-03-30 15:07] LABS: Hemoglobin A1C 5.5 % (<5.7)
[2023-03-30 15:11] LABS: ALT 72 U/L (16-63); AST 43 U/L (15-37); Albumin 3.9 g/dL (3.4-5.0); Alkaline Phosphatase 110 U/L (46-116); Anion Gap 9.8 mmol/L (3-11); BUN 11 mg/dL (7-18); Bilirubin, Total 0.6 mg/dL (0.2-1.0); CO2 27.2 mmol/L (21.0-32.0); CREATININE 0.9 mg/dL (0.70-1.30); Calcium 9.4 mg/dL (8.5-10.1); Calculated LDL 127 mg/dL (<100); Chloride 106 mmol/L (98-107); Cholesterol 204 mg/dL (<200); Estimated GFR 92.45 (mL/min/1.73m2); Glucose 114 mg/dL (74-106); HDL Cholesterol 42 mg/dL (40-60); Potassium 4.3 mmol/L (3.5-5.1); Sodium 143 mmol/L (136-145); Triglyceride 179 mg/dL (<150)
== END 2023-03-30 13:37 | disposition home or self-care (01) ==
LOC: NCHCN 13:36
PROVIDERS: PCP Family Medicine; Visit Provider Family Medicine
DX: E78.5 Hyperlipidemia, unspecified (principal); R73.03 Prediabetes
CPT/HCPCS: 80053; 80061; 83036

== ENCOUNTER 2024-04-09 08:47 | Outpatient (REF) | payer MEDICARE, SELFPAY ==
[2024-04-09 14:46] LABS: Hemoglobin A1C 5.8 % (<5.7)
[2024-04-09 14:52] LABS: ALT 94 U/L (16-63); AST 57 U/L (15-37); Alkaline Phosphatase 100 U/L (46-116); BUN 13 mg/dL (7-18); Bilirubin, Total 0.84 mg/dL (0.2-1.0); CREATININE 0.9 mg/dL (0.70-1.30); Calcium 9.5 mg/dL (8.5-10.1); Calculated LDL 133 mg/dL (<100); Chloride 106 mmol/L (98-107); Cholesterol 220 mg/dL (<200); Estimated GFR 91.88 (mL/min/1.73m2); Glucose 111 mg/dL (74-106); HDL Cholesterol 42 mg/dL (40-60); Potassium 4.1 mmol/L (3.5-5.1); Sodium 143 mmol/L (136-145); Total Protein 8.1 g/dL (6.4-8.2); Triglyceride 229 mg/dL (<150)
== END 2024-04-09 08:48 | disposition home or self-care (01) ==
LOC: NCHCN 08:47
PROVIDERS: PCP Family Medicine; Visit Provider Family Medicine
DX: I10 Essential (primary) hypertension (principal); R73.03 Prediabetes
CPT/HCPCS: 80053; 80061; 83036

== ENCOUNTER 2025-04-12 12:45 | Outpatient (REF) | payer MEDICARE, OTHER, SELFPAY ==
[2025-04-12 15:23] LABS: HCT 47.1 % (40.0-50.0); HGB 15.5 g/dL (13.5-17.5); MCH 28.6 pg (27.0-33.0); MCHC 32.9 % (32.0-36.0); MCV 87 fL (80-95); MPV 11.8 fL (8.0-11.0); Platelet Count 189 10^3/uL (130-400); RBC 5.42 10^6/uL (4.36-5.78); RDW 13.6 % (11.8-14.1); RDW-SD 43.0 fL; WBC 6.81 10^3/uL (4.4-10.8)
[2025-04-12 15:36] LABS: INR 1.0 (0.9-1.1); Prothrombin Time 10.0 sec (9.1-11.1)
[2025-04-12 15:46] LABS: ALT 85 U/L (10-49); AST 55 U/L (<34); Albumin 4.5 g/dL (3.2-5.0); Alkaline Phosphatase 109 U/L (46-116); Anion Gap 10.1 mmol/L (3-11); BUN 14 mg/dL (9-23); Bilirubin, Total 0.7 mg/dL (0.2-1.2); CO2 25.9 mmol/L (20.0-31.0); Calcium 9.4 mg/dL (8.3-10.6); Chloride 109 mmol/L (98-107); Cholesterol 185 mg/dL (<200); Glucose 109 mg/dL (74-106); HDL Cholesterol 34 mg/dL (>or=40); Potassium 4.2 mmol/L (3.5-5.1); Sodium 145 mmol/L (136-145); Total Protein 7.8 g/dL (5.7-8.2)
[2025-04-12 15:47] LABS: Hemoglobin A1C 5.7 % (<5.7)
== END 2025-04-12 12:46 | disposition home or self-care (01) ==
LOC: NCHCN 12:45
PROVIDERS: PCP Family Medicine; Visit Provider Family Medicine
DX: E78.5 Hyperlipidemia, unspecified (principal); R73.03 Prediabetes; H43.813 Vitreous degeneration, bilateral; I10 Essential (primary) hypertension
CPT/HCPCS: 80053; 80061; 85027; 83036; 85610